=== PATIENT | male | born 1970 | race Caucasian/White ===

== ENCOUNTER 2023-03-18 09:43 | Outpatient (OUT) | payer OTHER, SELFPAY ==
[2023-03-18 10:00] LABS: Basophils Absolute Auto 0.1 10^3/uL (0.0-0.1); Basophils Percent Auto 0.9 % (0.2-2.0); Eosinophils Absolute Auto 0.1 10^3/uL (0.0-0.7); Eosinophils Percent Auto 1.2 % (0.9-7.0); Hematocrit 43.2 % (42.0-54.0); Hemoglobin 14.5 g/dL (14.0-18.0); Immature Granulocytes Abs Auto 0.02 10^3/uL (0.00-0.03); Immature Granulocytes Pct Auto 0.3 % (0.0-0.5); Lymphocytes Percent Auto 29.4 % (20.5-60.0); Mean Corpuscular HGB Conc 33.6 g/dL (29.9-35.2); Mean Corpuscular Hemoglobin 32.5 pg (25.9-34.0); Mean Corpuscular Volume 96.9 fL (80.0-94.0); Mean Platelet Volume 9.1 fL (9.5-13.5); Monocytes Absolute Auto 0.6 10^3/uL (0.3-0.8); Neutrophils Absolute Auto 4.1 10^3/uL (1.4-6.5); Neutrophils Percent Auto 60.2 % (43.0-75.0); Platelet Count 216 10^3/uL (150-450); Red Blood Count 4.46 10^6/uL (4.70-6.10); White Blood Count 6.8 10^3/uL (4.0-11.0)
[2023-03-18 13:31] LABS: Prostate Specific Antigen Scrn 0.34 ng/mL (<=4.00)
[2023-03-18 13:33] LABS: Alanine Aminotransferase 100 U/L (16-63); Alkaline Phosphatase 75 U/L (46-116); Anion Gap 13.7; Aspartate Amino Transferase 51 U/L (15-37); BUN Creatinine Ratio 18.1; Bilirubin Total 0.5 mg/dL (0.2-1.0); Calcium 9.2 mg/dL (8.5-10.1); Carbon Dioxide 25.8 mmol/L (21.0-32.0); Chloride 103 mmol/L (98-107); Chol HDL Ratio 5.6; Cholesterol 254 mg/dL (<=200); Estimated GFR (African America >60 (>=60); Estimated GFR (Non-African Ame >60 (>=60); Globulin 4.2 g/dL; Glucose 107 mg/dL (74-106); HDL Cholesterol 45 mg/dL (40-60); Potassium 4.5 mmol/L (3.5-5.1); Sodium 138 mmol/L (136-145); Total Protein 8.2 g/dL (6.4-8.2); Triglycerides 163 mg/dL (<=150); VLDL CHOLESTEROL 32.6 mg/dL
== END 2023-03-18 09:44 | disposition home or self-care (01) ==
LOC: LAB 09:46
PROVIDERS: PCP Nurse Practitioner Family; Visit Provider Nurse Practitioner Family
DX: I10 Essential (primary) hypertension (principal); Z12.5 Encounter for screening for malignant neoplasm of prostate
CPT/HCPCS: 36415; 80053; 80061; 85025; G0103

== ENCOUNTER 2023-04-21 16:16 | Outpatient (RCR) | payer OTHER, SELFPAY | END 2023-04-22 16:28 | disposition home or self-care (01) | LOC: PT 16:16 | PROVIDERS: PCP Nurse Practitioner Family; Visit Provider Nurse Practitioner Family | DX: M23.92 Unspecified internal derangement of left knee (principal) | CPT/HCPCS: 97110; 97161 ==

== ENCOUNTER 2023-10-23 06:36 | Outpatient (OUT) | payer OTHER, SELFPAY ==
--- OUTSIDE RECORDS SUMMARY | 2023-10-23 06:39 | XMS_ITS | CCD ---
Author Organization [facility] Care Team Providers Care Ball Warper Tender Name Role Phone RORY, DR MENDEZ Primary Care Unavailable VALADEZ, DR MENDEZ Admitting Unavailable VALADEZ, DR MENDEZ Attending Unavailable VALADEZ, DR MENDEZ Consulting Unavailable WEST, DR RICK Griffin Consulting Unavailable REQUEST, DR SU LISTED Attending Unavaila ble REQUEST, DR SU LISTED Consulting Unavaila ble REQUEST, DR SU LISTED Admitting Unavaila ble VALADEZ, DR MENDEZ Primary Care Unavailable VALADEZ, DR MENDEZ Primary Care Unavailable FAWWASkye, Admitting Unavailable FAWSHAIKH VICENTE Attending Unavailable ESAU, DR RICK Griffin Consulting Unavailable SAMSA, KE Consulting Unavailable HAIR, CHASE Consulting Unavailable FAWWAD, BRADFORD Consulting Unavailable 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 Unavailable ANGELA IRELAND Attending Unavailable Rohrbacher TURBINE OPERATOR-Bushra SCHREIBER Primary Care P tad KAREN JONES Attending Unavailable BUSHRA BLANCO Primary Care Unavail able 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 Primary Care Unavailable Angela Ireland Attending Unavail able Angela Ireland Admitting Unavail able Rick Shen Consulting Unavailable Angela Ireland Attending Unavail able Angela Ireland Admitting Unavail able 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 Primary Care Unavailable Rohrbacher TURBINE OPERATOR-DOUBLE BACK OPERATORBushra Primary Care Pro vider KAREN JONES Referring Unavailable BUSHRA BLANCO Primary Care Unavailab KAREN Arevalo Referring Unavailable BUSHRA BLANCO Primary Care Unavailab KAREN Arevalo Referring Unavailable ARELISRBBUSHRA PEREZ Primary Care Unavailab le Allergies Allergy Classification Reported Allergen(s) Allergy Type Date of Onset Reaction(s) Facility (1 source) No Known Medication Allergies; Translations: [No Known Medication Allergies] Propensity to adverse reactions to drug (disorder) [facility] Repository (1 source) ALLERGIES NOT ON FILE; Translations: [ALLERGIES NOT ON FILE] Propensity to adverse reactions (disorder) [facility] Medications Current Medications Medication Drug Class(es) Dates Sig (Normalized) Sig (Original) diclofenac sodium 75 mg delayed release oral tablet (1 source) Nonsteroidal Anti-inflammatory Drug take 1 tablet by mouth every twelve hours Diclofenac Sodium 75 MG 1 tablet Orally Twice a day Active losartan potassium 50 mg oral tablet (9 sources) Angiotensin 2 Receptor Moriah Start: 04-08-2023 take 1 tablet by mouth once daily losartan (Cozaar) 50 mg tablet Take 1 tablet (50 mg) by mouth once daily. 0 06/23/2023 Active Completed/Discontinued Medications Medication Drug Class(es) Dates Sig (Normalized) Sig (Original) meloxicam 15 mg oral tablet (3 sources) Nonsteroidal Anti-inflammatory Drug take 1 tablet by mouth every twenty-four hours Meloxicam 15 MG 1 tablet Orally Once a day Not-Taking/PRN regadenoson (Lexiscan) injection 0.4 mg (1 source) Start: 08-27-2023 End: 08-27-2023 regadenoson (Lexiscan) injection 0.4 mg Tc-99m tetrofosmin (Myoview) injection 10 millicurie (1 source) Start: 08-27-2023 End: 08-27-2023 Tc-99m tetrofosmin (Myoview) injection 10 millicurie Tc-99m tetrofosmin (Myoview) injection 30 millicurie (1 source) Start: 08-27-2023 End: 08-27-2023 Tc-99m tetrofosmin (Myoview) injection 30 millicurie Problems Active Problems Problem Classification Problem Date Documented Date Episodic/Chronic Conduction disorders (1 source) Intraventricular conduction defect; Translations: [Conduction disorder, unspecified] Chronic Disorders of lipid metabolism (9 sources) Hypertriglyceridemia; Translations: [Pure hyperglyceridemia] Onset: 03-23-2023 06-29-2023 Chronic Diverticulosis and diverticulitis (1 source) Diverticulosis of large intestine without perforation or abscess without bleeding; Translations: [DVRTCLOS LG INT NO PERF/ABSC W/O BL] Onset: 01-23-2021 Chronic Essential hypertension (18 sources) Essential hypertension; Translations: [Essential (primary) hypertension] Onset: 06-29-2023 Chronic Osteoarthritis (9 sources) Degenerative joint disease involving multiple joints; Translations: [Polyosteoarthritis, unspecified] Onset: 03-23-2023 06-29-2023 Chronic Other connective tissue disease (1 source) Impingement syndrome of right shoulder; Translations: [IMPINGEMENT SYNDROME RIGHT SHOULDER] Onset: 07-06-2021 Episodic Other endocrine disorders (6 sources) Hypopituitarism; Translations: [Hypopituitarism] Onset: 03-23-2023 06-29-2023 Chronic Other nervous system disorders (11 sources) Chronic pain; Translations: [Other chronic pain] Onset: 03-23-2023 06-29-2023 Chronic Other nervous system disorders (3 sources) Other chronic pain; Translations: [Other chronic pain] Onset: 06-29-2023 Chronic Other non-traumatic joint disorders (5 sources) Pain in right knee; Translations: [PAIN IN RIGHT KNEE] Onset: 07-01-2021 Episodic Other non-traumatic joint disorders (10 sources) Pain in left knee; Translations: [Pain in joint, lower leg] Onset: 06-29-2023 Episodic Other screening for suspected conditions (not mental disorders or infectious disease) (20 sources) Other specified abnormal findings of blood chemistry; Translations: [Encounter for screening for malignant neoplasm of prostate] Onset: 01-23-2021 Episodic Residual codes; unclassified (7 sources) Non-smoker; Translations: [Other specified health status] Onset: 06-29-2023 06-29-2023 Episodic Residual codes; unclassified (2 sources) Other specified health status; Translations: [Other specified health status] Onset: 06-29-2023 Episodic Unclassified (1 source) CONTACT W/AND (SUSP) EXPOS COVID-19; Translations: [CONTACT W/AND (SUSP) EXPOS COVID-19] Onset: 01-23-2021 Past or Other Problems Problem Classification Problem Date Documented Da te Episodic/Chronic Biliary tract disease (1 source) Acute cholecystitis; Translations: [ACUTE CHOLECYSTITIS] Onset: 01-23-2021 Episodic Pancreatic disorders (not diabetes) (3 sources) Acute pancreatitis without necrosis or infection, unspecified; Translations: [ACUTE PANCREATITIS WO NECRS/INF UNS] Onset: 01-18-2021 Episodic Results Test Name Value Interpretation Reference Range Facility [facility] Heart Perfusion W stress and W radionuclide Everardo 08-27-2023 Normal Lexiscan Myoview cardiac perfusion stress test. No evidence of ischemia or myocardial infarction by perfusion imaging. Normal left ventricular systolic function, ejection fraction 52%. No previous study available for comparison. Signed by: Kecia Durand 08/27/2023 5:23 PM Dictation workstation: [id number] Interpreted By: Kecia Durand and Giannuzzi Michael STUDY: MYOCARDIAL PERFUSION STRESS TEST WITH LEXISCAN Performing facility: [facility], [address], [address], [address] Provider: Karen Jones MD, FACC PCP: Dr. Juan David Blanco [facility] Supervising provider: Kevan Freedman MD, FACC INDICATION: Elevated CA score HISTORY: Gender: M; Age: 53 y/o ; Height: HT 195.6 cm cm; Weight: WT 126.554 kg kg. Abnormal EKG; High Cholesterol; HTN; Denies smoking. COMPARISON: No comparison. ACCESSION NUMBER(S): [id number] ORDERING CLINICIAN: KAREN JONES TECHNIQUE: ONE DAY protocol. Stress injection: Date:08-27-23, 35.4 mCi of Myoview IV 20 seconds after rapid injection of Lexiscan. Rest injection: Date: 08-27-23, 10.4 mCi of Myoview IV at rest. The patient had a rapid injection of 0.4 mg of Lexiscan IV over 10 seconds. Imaging was performed by gated tomographic technique. Reason for Lexiscan: hip/knee pain STRESS TEST DATA: Resting heart rate was 57 BPM. Resting blood pressure was 126/82 mmHg. Peak blood pressure was 122/78 mmHg. Peak heart rate was 81 BPM. TEST TERMINATED DUE TO: Protocol completed FINDINGS: STRESS TEST RESULTS: Resting electrocardiogram revealed normal sinus rhythm. There were no significant ischemic ECG changes or dysrhythmias. The patient did not have chest pains/symptoms during procedure. There was a normal recovery phase. IMAGING RESULTS: Image quality was suboptimal secondary to patchy tracer uptake. Rest and stress tomographic images were reviewed and revealed normal perfusion without evidence of ischemia, myocardial infarction, or left ventricular dilatation with stress. Overall left ventricular systolic function appeared to be normal without regional wall motion abnormalities. Ejection fraction was 52%. TID is 0.98 and is normal. There was evidence of diaphragmatic attenuation artifact. [facility] MMODAL Kecia Durand MD - 08/27/2023 Interpreted By: Kecia Durand and Giannuzzi Michael STUDY: MYOCARDIAL PERFUSION STRESS TEST WITH LEXISCAN Performing facility: [facility], [address] [place] [address], [address], [place] [address] [facility] Provider: Karen Jones MD, FACC PCP: Dr. Juan David Blanco [facility] Supervising provider: Kvean Freedman MD, FACC INDICATION: Elevated CA score HISTORY: Gender: M; Age: 53 y/o ; Height: HT 195.6 cm cm; Weight: WT 126.554 kg kg. Abnormal EKG; High Cholesterol; HTN; Denies smoking. COMPARISON: No comparison. ACCESSION NUMBER(S): [id number] ORDERING CLINICIAN: KAREN JONES TECHNIQUE: ONE DAY protocol. Stress injection: Date:08-27-23, 35.4 mCi of Myoview IV 20 seconds after rapid injection of Lexiscan. Rest injection: Date: 08-27-23, 10.4 mCi of Myoview IV at rest. The patient had a rapid injection of 0.4 mg of Lexiscan IV over 10 seconds. Imaging was performed by gated tomographic technique. Reason for Lexiscan: hip/knee pain STRESS TEST DATA: Resting heart rate was 57 BPM. Resting blood pressure was 126/82 mmHg. Peak blood pressure was 122/78 mmHg. Peak heart rate was 81 BPM. TEST TERMINATED DUE TO: Protocol completed FINDINGS: STRESS TEST RESULTS: Resting electrocardiogram revealed normal sinus rhythm. There were no significant ischemic ECG changes or dysrhythmias. The patient did not have chest pains/symptoms during procedure. There was a normal recovery phase. IMAGING RESULTS: Image quality was suboptimal secondary to patchy tracer uptake. Rest and stress tomographic images were reviewed and revealed normal perfusion without evidence of ischemia, myocardial infarction, or left ventricular dilatation with stress. Overall left ventricular systolic function appeared to be normal without regional wall motion abnormalities. Ejection fraction was 52%. TID is 0.98 and is normal. There was evidence of diaphragmatic attenuation artifact. IMPRESSION: Normal Lexiscan Myoview cardiac perfusion stress test. No evidence of ischemia or myocardial infarction by perfusion imaging. Normal left ventricular systolic function, ejection fraction 52%. No previous study available for comparison. Signed by: Kecia Durand 08/27/2023 5:23 PM Dictation workstation: [id number] [facility] Work Phone: Radiology Study observation (narrative) [facility] Work Phone: NM Heart Perfusion W stress and W radionuclide IVOrdered By: Kecia Durand on 08-27-2023 [facility] Work Phone: NUCLEAR STRESS TESTon 2023 NUCLEAR STRESS TEST Interpreted By: Kecia Durand and Calvin Chawla STUDY: MYOCARDIAL PERFUSION STRESS TEST WITH LEXISCAN Performing facility: [facility], [address] [place] [address], [address], [address] Provider: Karen Jones MD, FACC PCP: Dr. Juan David Blanco [facility] Supervising provider: Kevan Freedman MD, FACC INDICATION: Elevated CA score HISTORY: Gender: M; Age: 53 y/o ; Height: HT 195.6 cm cm; Weight: WT 126.554 kg kg. Abnormal EKG; High Cholesterol; HTN; Denies smoking. COMPARISON: No comparison. ACCESSION NUMBER(S): [id number] ORDERING CLINICIAN: KAREN JONES TECHNIQUE: ONE DAY protocol. Stress injection: Date:08-27-23, 35.4 mCi of Myoview IV 20 seconds after rapid injection of Lexiscan. Rest injection: Date: 08-27-23, 10.4 mCi of Myoview IV at rest. The patient had a rapid injection of 0.4 mg of Lexiscan IV over 10 seconds. Imaging was performed by gated tomographic technique. Reason for Lexiscan: hip/knee pain STRESS TEST DATA: Resting heart rate was 57 BPM. Resting blood pressure was 126/82 mmHg. Peak blood pressure was 122/78 mmHg. Peak heart rate was 81 BPM. TEST TERMINATED DUE TO: Protocol completed FINDINGS: STRESS TEST RESULTS: Resting electrocardiogram revealed normal sinus rhythm. There were no significant ischemic ECG changes or dysrhythmias. The patient did not have chest pains/symptoms during procedure. There was a normal recovery phase. IMAGING RESULTS: Image quality was suboptimal secondary to patchy tracer uptake. Rest and stress tomographic images were reviewed and revealed normal perfusion without evidence of ischemia, myocardial infarction, or left ventricular dilatation with stress. Overall left ventricular systolic function appeared to be normal without regional wall motion abnormalities. Ejection fraction was 52%. TID is 0.98 and is normal. There was evidence of diaphragmatic attenuation artifact. IMPRESSION: Normal Lexiscan Myoview cardiac perfusion stress test. No evidence of ischemia or myocardial infarction by perfusion imaging. Normal left ventricular systolic function, ejection fraction 52%. No previous study available for comparison. Signed by: Kecia Durand 08/27/2023 5:23 PM Dictation workstation: [id number] [facility] CT CARDIAC SCORING WO IV CON TRASTon 08-12-2023 CT CARDIAC SCORING WO IV CONTRAST Interpreted By: Denton Baires, ADDENDUM: Technical: The following is to serve as an over-read for an unenhanced cardiac CT, to evaluate the extra vascular structures. Contiguous axial CT sections are performed from the level of the karen to the upper abdomen without intravenous contrast. Findings: There is a 5 mm nodule in the right upper lobe (image 11). The remaining visualized portions of both lungs are clear. There is no sign of pathologic lymph node enlargement. There is no pleural or pericardial effusion. Images through the upper abdomen are unremarkable. The visualized osseous and soft tissue structures of the chest wall are intact. Impression: 5 mm nodule in the right upper lobe. Incidental Finding: A non-calcified pulmonary nodule/multiple non-calcified pulmonary nodules measuring less than 6 mm, likely benign. (-YCF-) Instructions: No further follow-up is required, however, if the patient has high risk factors for primary lung malignancy, follow-up noncontrast CT scan chest in 12 months may be obtained. (Lc Gudino et al., Guidelines for management of incidental pulmonary nodules detected on CT images: From the Fleischner Society 2017, Radiology. 2017 Jan;284 (1):228-243.) FLEISCHNER.ACR.IF.1 The remaining visualized extra vascular structures are unremarkable. Signed by: Denton Baires 08/12/2023 5:30 PM -------- ORIGINAL REPORT -------- Dictation workstation: [id number] Interpreted By: Denton Marroquin, STUDY: CT CARDIAC SCORING WO IV CONTRAST; 08/12/2023 9:43 am INDICATION: Signs/Symptoms:abnorm al testing. COMPARISON: None. ACCESSION NUMBER(S): [id number] ORDERING CLINICIAN: KAREN JONES TECHNIQUE: Using prospective ECG gating, CT scan of the coronary arteries was performed without intravenous contrast. Coronary calcium scoring was performed according to the method of Agatston. CT Dose-Length Product (DLP): 91.8 mGy*cm CT Dose Reduction Employed: Yes, prospective gating, iterative reconstruction. FINDINGS: The score and distribution of calcium in the coronary arteries is as follows: LM 0 LAD 1180 LCx 69 RCA 386 Total 1635 The visualized ascending thoracic aorta measures 3.9 cm in diameter. The heart is normal in size. No pericardial effusion is present. The main pulmonary artery, right and left pulmonary artery are normal in size. IMPRESSION: 1. Coronary artery calcium score of 1635*. 2. MAI 99th percentile for age, gender, and race in asymptomatic patients. *Coronary Artery Agatston score Score risk Very low 1-99 Mildly increased 100-299 Moderately increased >300 Moderate to severely increased >800 Charo et al. JCCT 2016 (http://dx.doi.org/10 .1016/j.jcct.2016.11. 003) MAI Percentile In general, greater than 75th percentile for age, gender, and race is considered to be a higher relative risk and higher lifetime risk condition. Greater than 75th percentile=moderate to severely increased relative risk irrespective of the score. Advise using MAI 10 year CHD risk calculator below for better discrimination of risk. MAI 10-Year CHD Risk with Coronary Artery Calcification can be calcuate using link below https://www.mai-nhlb i.org/MESACHDRisk/Mes aRiskScore/RiskScore. aspx Won gomez al. JACC 2015 (http://dx.doi.org/10 .1016/j.j acc.2015.08.035) Reading Sample Room Supervisor: Dr. Denton Marroquin, Date: 08/12/2023 4:32 pm Signed by: Denton Marroquin 08/12/2023 4:33 PM Dictation workstation: [id number] [facility] Coding Summaryon 07-08-2023 Coding Summary HTMLBase 64 ZeveencrJYr1sRr+PGhlY WQ+HH5ZLWZdP59rwHTbzS 3mS8CZYLgILsklCUCHWRo UDrRkwnGpJX0hhJXkUYJs IC8+CZ0rTVPkRxksdCDxg 3C2eWY6Y40gwx5wVMmyjY Y8ZINdOrFamidhn4hyuRb 6IDcuNmluOyBt HUKleQ77UJE0zZ68Qs03s UDmxKTus2uljSv9VyCuRQ ThXRJ8uAjyIUgkp5BcGBU uK55btBZfz5L5 DADqnGvpwWJqNjCnjVW8m B0oJLdjqyqlg5iwuuviCg d6ub94uCQcd6N6cJR4D3D wnwG7ERKgwWVy ZnizcRQWtS8ipwtzr6qxe evoDgYpXSFuQKz4JSk6IZ FiaUtvRpDhBT77FFF1GHK vpzDpG7SuNJHk yKnxJwT6g7E5It0LA8GDE zyiJ1SMYVAABJeqlTB+PC 53ol25P8MlHhjfPcl0WWS nZLR8iDS9xE9e VEIbNVakm5A0wMM0N1Acw mWtvf6mi4uxVAEhICsrZ9 4hkSAfz6Y4MXUbxGS1KTS ooAwkTyKlkW10 Oyc+RZAfeHpxe2AhMfpsm 4lxc8hkbEb3McdqEYChqr OpyVavNHL3p3KuEj7aGWJ ojIB9dHK8bD7z MhAxXdB6ZPpxB113EfQos UNbWgkmK09nL0JolTX+PH HbQzz7MGCoeVliSZ8jX2O hZGRpbmctbGVm bSklXS2jBCNksxmwYIHqf X1kAMWcN2l8EtUkJaV1DW pvA5EaYBEhnlmlId95mQ6 bRiQtIgU4BTpa Y5LnzpI8CYKegXXjPVgzG QD6T61ls8Z4LNMsUWAzRW X7wPG0aO0lwEadrzkegGL mdDsgdmVydGlj BCwqDJfxW958PXBmyFbvY kNvZGluZyBEYXRlOiAgMT IvMTMvMjAyMzwvdGQ+PHR kJRP3fTmkXHFt hWUsEQwiLk6jrBxrhOslG K7eNHVusjucKKAjuH2dHX VxwNSixKciFY2oMTCupro yu687ClIwNEK9 VUKxvYCtZ0HqaO9bAyEeI QWrROUnM2UwzJUtOHrjI9 79CLauKbG7VMZpigRbY2B sLWFsaWduOiB0 u7X1Yx0Fn7ZkljsrC3Uwc NHjTcRfWmdvXWg8U0SxEz wvdHI+WQ74MLGgAK93VGz 4GUV8jTueNWnk QKMnV5YncH6uVfJyMIElZ GRkOyc+PHRhYmxlIHdpZH RoPScxMDAlJyBzdHlsZT0 jYj7vIOXgIEEk rMshcFAjMqRjh0yrUNUoQ MykFQ8nxMgoR0DkgTB0MZ Vax9g4Lc27Z80rT2NfmFW +YJThlMF0mSQ3 gK6mRmDdFoF1EBrpL582R nSlcIPbXhzjl5zgk1cntG c6OgK5MOLoavNsfHpmUHB 0k3KrTb93Z96v IHdpZHRoPSIxNSUiIHZhb Mtrwr4wlI1gJc8+PGNvbC J3pWJ9yG3yFyFuSiG0NMy mG799UnQidNEt Mnfph0edv9vlkEs6XnKkW POawrNpqNxoEST2h4UwHr 07J8UepMplt9RkXdf9uf3 5nENmy7F2cKM1 M3UpKORscimooUUyyLcyB S5eZISpecerGTVdeW2sJA FcZ2s4IbIaHuU5HLuwS2F dftN1UMMeeVDe LVQgwQTDaX6ycqqcf2egg wrcBzGsAWBwTQy6IMa5XJ ZwcZsoLcOhHSU2QbV1YVS 0nIUmoM6kgUoi penjhE2qMoy+SZP3iUZcn HVWOJ4dIacyhHT+PHRkIH L9mGjwYIyzPUXwzM7xLVY wG2m5AqKhKhP3 EQigN2UvxgY8PASpoOHpL QHevRLOaT2iyjocc9tmro etZjCoZMQeTKu4EVw7QVH saWduOiBsZWZ0 ErX8AHM4lKLzrW2xrQfjv ksvyV5uAat+QmlydGggRG O0MDc5E8XfStm7WIQxoKw jEJ6egALyABwa Hh9wlYbxkVhvVL3zGBLgv grrn640ZcTvi5onSOPdwZ YvYSxiWCU5C99bj8D9WXW mTHIxYRA3qDV8 yU7mxAkxxeptdKVxlGqyz nPrrOnzBIwlPLkiC354DH YzkGybOgMbONd8J6DyNbw 9ALTgoKdtFJ0v vTRtVImeLp3njAizhAcbS K7vXHNpwxwaf547RcDmm7 xoNGUiwVPkTGkaWUU3L41 dv4N5HXUxFQOw LYF6yZV8xE9igAlsuqvdr GVmdDsgdmVydGljYWwtYW qaY113BCIkrTmlLdVenTx 9B6HtMhb5CUSq sDxyEC9oeUBtRXrkYy8es BprzZyeZY8rCFBmrjnrv6 01OvXcp5xtALLcjBOtTZl aNWF1U13dd4L8 BYPsMQSnTCJ2zEL1kA2yk GlnbjogbGVmdDsgdmVydG fpOKcpERqaO021HOIrlCk nPlBhdGllbnQg JThvURc1T4PsTqlcjYL+P H24GGEhYP61rPMmmIYmk6 aidUl7MbCwLOTtHZV5sHi zPOeqx7XwHVFz A14nhZXtr9W7BFFfmXfqd GQbEiIkzIV8wZ8sPIjjxn cpa6fhrixsEzvmr2vanm9 1pV41Y59qRWvx ZHRoPSIzMCUiIHZhbGlnb b2fkR0eKv2+EGXvyFQ0fU Y7mT5lWNTjDeW0GFcgS63 9InRvcCIvPjxj e3llp5fetSd4YkX4PHAyk tVnaAswKKH2m8TnMh52C5 9sIHdpZHRoPSIyMCUiIHZ asEmhrh7frX7p Ii8+RMUwcGZ0bQO5uK0iZ cYkTzJ1CYseG674HdPodO JkCjbnU30wM9SnaUT+PHR eYed7XHFxhIbm DQ0qvJBoYVvbSn2wXSJ2V sYvPgJaMAvvP3NvLMTrlj tejhdhgKO9GVGzHKLbuG6 7Lg3ntYjoIZPm wZBCvR4ammzve4wefhugF pPrIKHaKEy4FTq7GRZrwY goUuFhBBV3PfB1GZY9yWZ jpM9bxBaduvgd dI6lH8RzHAXqykoqOm21m P2wNjKzFhS9MDpvBxn+Sk TJLJpqKlUHFKJxA69EMep 7X0CzCmj7KUJt zWzdDF1wzRXdLRdmDm3bu QkwdPpeWZ8vYUBjzhceCY ZkhQ5wQBUayTUleWfdIT0 yTMApcpulg051 EgYkCAB6SADwlSJbO4Kji U9jQoNmTANsRMUaP9WogB EdCMvzM983DQinXsG9PXS myoMaV0KgPJWd qKbrGxP4y4J8Nw4qYU4fC H1yBSgeOA83TJ58aRTtt3 V3yEY4C1UpJOFgwiaabex faAD6AITjFHQg gT92nTRmECcnNf4pd8R2y 827FQKfKCQfeE62Sx1pzN rkKJZmpOGHeD0kwzoai6w vcjogIzAwMDAw PQg0OYe0DZHucLbvGzGeD TH9OcJ9FKF3lXLrjU9onD fabhmkxY0rKaa+NTMgWWV eauM0E2SnUqe9 WNLvfMthUP5ljWJfHUjxS w2pdEfnfMlzXV5wPZVqva xkTMZhmD7yIVLzmWUfjUo eCA9pTUHdztaa n200KjQxOYZ8KTZvuKWoU 9KhtR4dXfNpSNAjPQGrC3 OjyLZjJClmS409RHehNoA 2CJUfzkPyW3Uk BXZkgGvcBkE1e5Z5Hg5VL WpMOW03WU73wAQxe1X7gM P2V3JeHEVysqoxcntttQD 6QIIpHCTkjT72 pOXgTRtvNv0js9I6f311I TQqHGQjfD57Lm8ysKfkJP ZrdSTBfL3wnavob9lhyli gIzAwMDAwMDt0 YGs2ZQLdvQsfGvLpVZF2R iY0UII2fSYfoC4ikGldmg hgoA8aPda+PPN3QPS4uee zewi8J5GtFdau dHI+BF58YPRmOW60sBTkl MChl1sefKf1UmIcEYEwMY X9cFsvSAtvn7BeVANsU34 xqNXpe5F8EOBs vRvxmYVqDwEykGS8yU4tX Fcsafgna4vcubimMevje8 wega22lB50K49oERphHHT oPSIzMCUiIHZh mKigyx1xsV6nBy0+PGNvb WM2gLS0mY3lWxMuCsK1PI zgH229AkAwaAKaQbtwy8k ck8xdcZf6OuPr YODsqcWtuGmmSAS1c9XmZ g40X96fNOiyRMReSBZgMJ CmNGOfkTwycs4kzV5oUl4 +ST7sr5lvhh95 xJ17jLU+JVPfMJF3oJegO YmaHHApaB4wUFudXcE3SZ BwFlXrcL52hHAbHXojWh2 yhRdqjTcgNV6q GXUeejsjo077QeMrz2qwI GGqbPZnWMhlFCC1H02cn6 E7EMXjNXBaRXK8vSA5tF0 hbGlnbjogbGVm dDsgdmVydGljYWwtYWxpZ 936IASnjIpdQvJmqYLpG7 czcdKFNO6yVgarqOY+PHR jRZJ2zJkjMTdf GZOapV6wZDClC8z7RcGqW tI9UPoeB8YlmiA0IYOsqQ AxOECgyUDHyP1cfrylc5d vcjogIzAwMDAw PUb2WZg4GCYagLlxPyTsB GJ2XiL5UVK1xBZdmD5dpU jcijinyQ7hXmf+RklOOjw vdGQ+PHRkIHN0 uXeeMKzcKKTvdM9jTYFkF 3r8DcDrQbW1JGodC4Fdqa Q8HFUexKYeCDSyoPLUtF5 sfvtgb4uqkinb QyEgVMOcPNu5XOh3DQBbd SozCaOzBIA6HaQ5KJB7bJ ZgjQ4ipGdizdcgkZ9lPot +TVJOOjwvdGQ+ GPMuTFC5mGjnNGdhIESrk E6tIRXbW4n6XzEaYkI3NZ swW6CuzvP2BOLsmVNdKWY tmSNNbE9ysanw f2opsazlPqYaPXCjTOw2M Dz9LNAwrJegYzEmBYC5Nu B7JAW2yWVeyZ8mjJfoysm toN9mFeg+UGF5 IUH7NC78AK02N3KkWnrpk GFibGU+PHRhYmxlIHdpZH RoPScxMDAlJyBzdHlsZT0 bFr9iXGYdYQAy bGx (more content not included)... [facility] Consent Formson 07-07-2023 Consent Forms [id number]#[facility]. [facility] on [facility]-07-[facility]23 Consultation/Specia list Note [id number]. [facility] Discharge Instructions [id number][facility] Recordon 07-07-2023 MAGR Intraoperative Record MAGR Intra-Op Record Summary Primary Physician: Angela Ireland DO Finalized Date/Time: 07/07/23 14:38:47 Pt. Name: ANGELA NANCE/Sex: 1970 MALE Med Rec #: [id number] Physician: Angela Ireland DO Financial #: [id number] Pt. Type: D Room/Bed: / Admit/Disch: 07/06/23 10:40:31 - 07/06/23 15:50:00 Institution: Case Times MAGR Entry 1 Patient In Room Time 07/06/23 14:02:00 Out Room Time 07/06/23 14:50:00 Anesthesia Start Time 07/06/23 14:02:00 Stop Time 07/06/23 14:53:00 Surgery Start Time 07/06/23 14:24:00 Stop Time 07/06/23 14:39:00 Last Modified By: Ariadne Craft RN 07/06/23 14:54:36 Case Attendance MAGR Entry 1 Entry 2 Entry 3 Case Attendee Angela Ireland Bradley MD Long, Barbara RN Andrew DO Role Performed Surgeon - Primary Anesthesiologist of Stage Driver Record Time In 07/06/23 14:02:00 07/06/23 14:02:00 07/06/23 14:02:00 Time Out 07/06/23 14:33:00 07/06/23 14:50:00 07/06/23 14:50:00 Procedure Arthroscopy Knee(Left) Arthroscopy Knee(Left) Arthroscopy Knee(Left) Last Modified By: Ariadne Craft RN, Barbara RN Long, Barbara RN 07/06/23 14:51:56 07/06/23 14:51:56 07/06/23 14:51:56 Entry 4 Entry 5 Case Attendee Anika Palomino CST, Lauren M CSFA Role Performed Scrub 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 Time In 07/06/23 14:02:00 07/06/23 14:02:00 Time Out 07/06/23 14:50:00 07/06/23 14:50:00 Procedure Arthroscopy Knee(Left) Arthroscopy Knee(Left) Last Modified By: Ariadne Craft RN, Barbara RN 07/06/23 14:51:56 07/06/23 14:51:56 Surgical Procedures MAGR Pre-Care Text: A.20 Verifies operative procedure, surgical site, and laterality Im.150 Develops individualized plan of care Entry 1 Procedure Arthroscopy Knee Primary Procedure Yes Primary Surgeon Angela Ireland DO Surgeon Comment LEFT KNEE SCOPE - Start 07/06/23 14:24:00 MENISCAL TEA left knee menisectomy Stop 07/06/23 14:39:00 Anesthesia Type General Surgical Service Orthopedics Wound Class Clean Technique Details Closure Technique Primary Entire procedure No was performed via laparoscope or robotic assistance Last Modified By: Ariadne Craft RN 07/06/23 14:52:32 Post-Care Text: O.730 The patient's care is consistent with the individualized perioperative plan of care General Case Data MAGR Pre-Care Text: A.350.1 Classifies surgical wound Entry 1 Case Information OR MAGR OR 01 Case Level Level 4 Wound Class Clean Specialty Orthopedics ASA Class 2 Diagnosis Preop Diagnosis MENISCUS TEAR LEFT KNEE Postop Same As Preop Yes Postop Diagnosis MENISCUS TEAR LEFT KNEE Blunt or No Is the procedure No penetrating injury considered occured prior to Emergent/Urgent? the start of the procedure: Last Modified By: Ariadne Craft RN 07/06/23 14:27:34 Post-Care Text: O.760 Patient receives consistent and comparable care regardless of the setting Time Out MAGR Entry 1 Procedure(s) Arthroscopy Knee(Left) Time Out Checklist Verifications Patient Verified Yes Allergies Verified Yes Procedure to be Yes Presence of Yes Performed Verified Necessary with Consent Procedural Equipment, Devices, and Implants Verified Site Verification, Yes Site Marking, Site Marking Alternative, and/or Site Marking Exception in Accordance with Facility Policy Anesthesia Review Antibiotic Received Yes All Anesthesia Yes Within an Concerns Addressed Appropriate Time Interval Prior to Surgical Incision Surgeon Review Anticipated Blood Yes Loss Risk, Expected Case Duration, and Critical and Non-Routine Steps to be Performed Addressed Nurse Review Team Introductions Yes Equipment Concerns Yes Completed Addressed Fall Risk Concerns Yes Fire Risk Yes Addressed Assessment Completed and Interventions Performed Skin Assessment Yes Diagnostic and Yes Concerns Addressed Radiological Test Results Displayed are Appropriate and Labeled Skin Prep Allowed Yes Sterilization Yes to Dry Prior to Concerns Addressed Incision Venous n/a Laser Safety n/a Thromboembolism Measures Implemented Prophylaxis Ordered Latex Precautions n/a Other Concerns Yes Implemented Addressed Time Out Angela Ireland Time Out Time 07/06/23 14:23:00 Participants Cabrera Tatum DO, Bradley MD, Ariadne Craft RN, Anika Palomino CST, Luci Cabrera [facility] Last Modified By: Ariadne Craft RN 07/06/23 14:30:29 Patient Positioning MAGR Pre-Care Text: A.280 Identifies baseline musculoskeletal status Im.40 Positions the patient Im.80 Applies safety devices Entry 1 Procedure Arthroscopy Knee(Left) Body Position Supine Left Arm Position Extended on padded arm Right Arm Position Extended on padded arm board board Left Leg Position Other/see comments Right Leg Position Other/see comments Feet Uncrossed? Yes Press Points Checked Yes Additional Operative le (more content not included)... Normal [facility] Outside Recordson 07-07-2023 Outside Records [id number]#1 .[facility] Tele[facility] Stripson 3 Telemetry Strips [id number]. [facility] Anesthesia Noteon 07-06-2023 Anesthesia Note Patient: ANGELA NANCE Age: 53 years Sex: MALE : 1970 Associated Diagnoses: None Author: Baljeet Rees MD Postoperative Information Post Operative Note: Post Anesthesia Care Unit. Anesthetic utilized: General, LMA used.. . Health Status Allergies: Allergic Reactions (All) No Known Medication Allergies Physical Examination Vital Signs (last 24 hrs) Last Charted Heart Rate Monitored 75 bpm (JUL 06 15:10) Resp Rate 16 br/min (JUL 06:10) SBP H 143 mmHg (JUL 06:) DBP H 98 mmHg (JUL 06:) General: Alert and oriented, No acute distress. Respiratory: Respirations are non-labored. Cardiovascular: Normal rate, Regular rhythm. Review / Management Condition: Stable. Assessment Anesthetic outcome No anesthetic complications noted. Adequate pain relief. No Complaint of nausea and vomiting. Plan Transfer/ Discharge: Patient can be discharged from PACU when criteria met. [Electronically Signed on: 07/06/2023 15:21 EST] Baljeet Rees MD [Verified on: 07/06/2023 15:21 EST] Baljeet Rees MD [facility] Anesthesia Note Patient: ANGELA NANCE MRN: [id number] Age: 53 years Sex: MALE : 1970 Associated Diagnoses: None Author: Baljeet Rees MD Preoperative Information Anesthesia history: Patient history: No prior anesthesia problems, No problems with local anesthetics. Review of Systems Constitutional: Negative. Respiratory: No shortness of breath. Cardiovascular: No chest pain. Health Status Allergies: Allergic Reactions (All) No Known Medication Allergies Current medications: Home Medications (2) Active diclofenac sodium 75 mg oral delayed release tablet 75 mg = 1 tab(s), PO, BID losartan 50 mg oral tablet 50 mg = 1 tab(s), PO, Daily Problem list: All Problems Hypertension / SNOMED CT 4532798037 / Confirmed Left knee pain / SNOMED CT 6119182217 / Confirmed Histories Family History: No family history items have been selected or recorded. Procedure history: Appendectomy ([id number]). Social History Electronic Cigarette/Vaping Assessment Electronic Cigarette Use: Never. Alcohol Assessment Use: Current. Beer, 1-2 times per week Tobacco Assessment Never tobacco user Tobacco Use:. Substance Abuse Assessment Substance use: Never. . Social & Psychosocial Habits Alcohol 06/23/2023 Alcohol Use: Current Type: Beer Frequency: 1-2 times per week Substance Use 06/23/2023 Substance use: Never Tobacco 06/23/2023 Smoking tobacco use: Never tobacco user Electronic Cigarette/Vaping 06/23/2023 Electronic Cigarette Use: Never . Physical Examination Vital Signs (last 24 hrs) Last Charted Heart Rate Apical 68 bpm (JUL 06 10:50) Resp Rate 16 br/min (JUL 06 10:50) SBP H 143 mmHg (JUL 06 10:55) DBP H 98 mmHg (JUL 06 10:55) General: Alert and oriented, No acute distress. Airway: Mallampati classification: III (soft palate, base of uvula visible). Respiratory: Respirations are non-labored. Cardiovascular: Normal rate, Regular rhythm. Neurologic: Alert, Oriented. Review / Management Laboratory Results Plan [place] [employer]esthesiologists (ASA) physical status classification: Class II. Anesthetic Preoperative Plan Anesthesia: General. , Plan for LMA. Anesthetic plan, risks, benefits, and alternatives discussed with the patient and/or family. Patient verbalized understanding. Informed consent was given. Consent was signed by the patient. present at interview. . [Electronically Signed on: 07/06/2023 12:34 EST] Cabrera, Baljeet MD [Verified on: 07/06/2023 12:34 EST] Baljeet Rees MD [facility] Inpatient Patient Summaryon 07-06-2023 Inpatient Patient Summary [place] [id number] Patient Discharge Instructions Name: ANGELA NANCE : 1970 Patient Address: [address] [place] [address] Primary Care Provider: Name: 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 CNP After you are discharged if you find you have any questions, please, call [phone] ext [phone] to speak to a nurse. Discharge Diagnosis: Tear of medial meniscus of left knee Prescription Information: If you have been given a prescription for narcotics, seek immediate medical attention if you have any difficulty breathing or any sudden status changes such as confusion and sleepiness. If you or anyone you know is experiencing suicidal thoughts, mental health, alcohol and/or drug addiction problems; contact the [facility] 16/02 Crisis Hotline -Text 4HCEZ uw 460785. If you received any narcotics, sedation, or any other medication that causes drowsiness for the next 24 hours, unless otherwise directed: ? Do not drive a car. ? Do not operate machinery such as power tools, lawn mowers, drills, sewing machines, or stoves ? Avoid alcoholic beverages and drugs for allergies, nerves, or sleep ? Do not make important personal or business decisions or sign any legal documents [facility] would like to thank you for allowing us to assist you with your healthcare needs. The following includes patient education materials and information regarding your injury/illness. GOYOANGELA Rick has been given the following list of follow-up instructions, prescriptions, and patient education materials: Follow-up Instructions With: Address: When: SHELBY NATHAN [address] [place] [address], [address] [place] [address] Business (1) 07/15/2023 9:15 AM Medications During the course of your visit, your medication list was updated with the most current information. The details of those changes are reflected below: Medications to Continue That Have Not Changed Other Medications diclofenac (diclofenac sodium 75 mg oral delayed release tablet) 1 tab(s) Oral (given by mouth) 2 times a day. losartan (losartan 50 mg oral tablet) 1 tab(s) Oral (given by mouth) every day. It is important to always keep an active list of medications available so that you can share with other providers and manage your medications appropriately. As an additional courtesy, we are also providing you with your final active medications list that you can keep with you. diclofenac (diclofenac sodium 75 mg oral delayed release tablet) 1 tab(s) Oral (given by mouth) 2 times a day. losartan (losartan 50 mg oral tablet) 1 tab(s) Oral (given by mouth) every day. Take only the medications listed above. Contact your doctor prior to taking any medications not on this list. Diet & Activity Patient Activity Level: Patient Diet: Patient Activity Restrictions: Comment: Patient education materials, if any, will display below DR. IRELAND'S POST OPERATIVE KNEE ARTHROSCOPY INSTRUCTIONS: SURGEON'S WRITTEN INSTRUCTIONS: 1. If you have been given a cryo cuff after surgery you should use it about 20 min/hour for the first 24 hours. After that it is optional. TIP: Many patients prefer to use it a little longer because it helps to reduce the pain. 2. You should take it easy for the first 3 days following surgery. You should be a ?couch potato? and get up to eat and go to the bathroom. After the first 3 days, you may gradually increase your activities as tolerated. 3. Change your dressing in 1 day. If the wounds are clean and dry you can cover them with a band-aid. 4. You may shower in 1 day. DO NOT submerge the wound under water as in a bathtub, swimming pool, or hot tub. 5. You may bear weight as tolerated. Using crutches or assisted devices are not required. 6. You should elevate your extremity. 7. If you have any questions or concerns, please call the office at [phone]. Viruses or Bacteria What?s got you sick? Antibiotics only treat bacterial infections. Viral illnesses cannot be treated with antibiotics. When an antibiotic is not prescribed, ask your healthcare professional for tips on how to relieve symptoms and feel better. Usual Cause Illness Viruses Bacteria Antibiotic Needed Cold/Runny Nose NO Bronchitis/Chest Cold (in otherwise healthy children and adults) NO Whooping Cough Yes Flu NO Strep Throat Yes Sore Throat (except strep) NO Fluid in the middle ear (otitis media with effusion) NO Urinary Tract Infection Yes Antibiotics Aren?t Always the Answer www.cdc.gov/getsmart GET SMART Know When Antibiotics Work U.S. Department of Health and Human Services Centers for Disease Control and Prevention March 2014 [facility] MAGR PACU Recordon MAGR PACU Record MAGR PACU Record Summary Primary Physician: Angela Ireland DO Finalized Date/Time: 07/06/23 15:09:51 Pt. Name: ANGELA NANCE/Sex: 1970 MALE Med Rec #: [id number] Physician: Angela Ireland DO Financial #: [id number] Pt. Type: D Room/Bed: / Admit/Disch: 07/06/23 10:40:31 - Institution: PACU Case Times MAGR Entry 1 In PACU I 07/06/23 14:49:00 Discharge from PACU 07/06/23 15:12:00 I Last Modified By: Selene Bryson RN 07/06/23 15:09:47 Finalized By: Selene Bryson RN Document Signatures Signed By: Selene Bryson RN 07/06/23 15:09 [facility] MAGR Postoperative Recordon 07-06-2023 MAGR Postoperative Record MAGR Phase II Record Summary Primary Physician: Angela Ireland DO Finalized Date/Time: 07/06/23 15:47:35 Pt. Name: ANGELA NANCE/Sex: 1970 MALE Med Rec #: [id number] Physician: Angela Ireland DO Financial #: [id number] Pt. Type: D Room/Bed: / Admit/Disch: 07/06/23 10:40:31 - 07/06/23 15:50:00 Institution: Phase II Case Times MAGR Pre-Care Text: Patient is free from s/s of injury. Patient remains free from compromised physical state related to surgery or anesthesia. Patient comfort maintained. Patient/family verbalize understanding of discharge instructions. Entry 1 In PACU II 07/06/23 15:14:00 Discharge from PACU 07/06/23 15:50:00 II Last Modified By: Danika Silva RN 07/06/23 15:47:33 Post-Care Text: The patient remains free from s/s of injury. Patient's vital signs stable, circulation maintained, return to preop mental and physical status, opsite/dressing intact, minimal or absent nausea and vomiting, tolerates po intake. Patient verbalizes adequate pain control. Patient/family express understanding of discharge instructions. Finalized By: Danika Silva RN Document Signatures Signed By: Danika Silva RN 07/06/23 15:47 [facility] Preoperative Recordon 1 09-06-2022 [facility] Preoperative Record MAGR Pre-Op Record Summary Primary Physician: Angela Ireladn DO Finalized Date/Time: 07/06/23 14:26:15 Pt. Name: ANGELA NANCE /Sex: 1970 MALE Med Rec #: [id number] Physician: Angela Ireland DO Financial #: [id number] Pt. Type: D Room/Bed: / Admit/Disch: 07/06/23 10:40:31 - Institution: Pre-Op Case Times [facility] Pre-Care Text: Patient will be optimally prepared for surgery. Patient is free from s/s of injury. Provide information to patient/family related to plan of care. Verify patient allergies. Confirm identity and verify consent before the operative or invasive procedure. Entry 1 Patient Arrival Time 07/06/23 10:52:00 Preop Departure 07/06/23 14:01:00 Last Modified By: Ariadne Craft RN 07/06/23 14:26:13 Post-Care Text: Patient is prepared mentally and physically and is ready for surgery. The patient remains free from s/s of injury. Patient/family express understanding of plan of care and participate in decisions affecting his or her perioperrative plan of care. Allergies documented appropriately. Patient identifiers and consent correct. General Comments: Pt arrives per amb. Pt denies any CP, SOB, Hx of S/S of flu, or sleep apnea. Disch instrtuctions reviewed with pt incl anesth restrictions-verbaliz ed understanding. Finalized By: Ariadne Craft RN Document Signatures Signed By: Ariadne Craft RN 07/06/23 14:26 Normal [facility] Operative Report - Surgeon/P luzmaria 07-06-2023 Operative Report - Surgeon/Physician Preoperative diagnosis: Internal derangement left knee with suspected meniscus tear Postoperative diagnosis: Medial meniscus left knee. Chondromalacia patella. Arthritis medial compartment Procedure: Arthroscopic partial medial meniscectomy left knee Surgeon: Juan David Ireland D.O. Anesthesia: General Indications for surgery: Ongoing pain and discomfort of the left knee Estimated blood loss: Scant Complications: There were no complications Findings: Tear posterior horn medial meniscus. Loss of articular cartilage in the medial compartment with areas of exposed bone. Loose cartilaginous chips within the knee joint numerous small joint mice. Chondromalacia patella. Procedure summary: After administration of anesthesia the knee was examined there was no instability was placed in leg denson and prepped and draped in usual fashion. Timeout was taken. An anterior lateral portal was established. Upon entering the patellofemoral joint there was chondromalacia at the patella was tracking midline. The scope was positioned in the medial compartment there was an obvious tear of the medial meniscus under direct visualization an anterior medial portal was established. The meniscus was probed and interrogated the posterior horn was completely torn. A portion of it was missing. There was also raw bone on the medial femoral condyle with a large broad area of articular loss. Utilizing a shaver a partial meniscectomy was performed trimming back the meniscus to a stable base. The majority of the posterior horn was removed and the small portion of the body of the meniscus. In the notch the cruciate ligaments were intact In the lateral compartment the articular cartilage was intact the lateral meniscus was normal. Each compartment was revisited the joint was irrigated and evacuated and the portals were closed with nylon suture. Sterile dressings were applied. [Electronically Signed on: 07/06/2023 15:07 EST] Angela Ireland DO [Verified on: 07/06/2023 15:07 EST] Angela Ireland DO [facility] Patient Handouton 07-06-[address] IRELAND'S POS T OPERATIVE KNEE ARTHROSCOPY INSTRUCTIONS: SURGEON'S WRITTEN INSTRUCTIONS: 1. If you have been given a cryo cuff after surgery you should use it about 20 min/hour for the first 24 hours. After that it is optional. TIP: Many patients prefer to use it a little longer because it helps to reduce the pain. 2. You should take it easy for the first 3 days following surgery. You should be a ?couch potato? and get up to eat and go to the bathroom. After the first 3 days, you may gradually increase your activities as tolerated. 3. Change your dressing in 1 day. If the wounds are clean and dry you can cover them with a band-aid. 4. You may shower in 1 day. DO NOT submerge the wound under water as in a bathtub, swimming pool, or hot tub. 5. You may bear weight as tolerated. Using crutches or assisted devices are not required. 6. You should elevate your extremity. 7. If you have any questions or concerns, please call the office at [phone]. [facility] Progress Note - Nurseon 12-0 Progress Note - Nurse Spoke with pt and informed him to be here at 1045 and NPO after MN, he verbalizes understanding. [Electronically Signed on: 07/03/2023 13:35 EST] Zayra Rodriguez RN [Verified on: 07/03/2023 13:35 EST] Tk Rodriguezfredrick RN Normal [facility] ECG 12 Leadon 06-29-2023 Normal sinus rhythm at 87 bpm MA interval 158 ms QRS duration 110 ms QTc 433 ms left axis deviation [facility] Work Phone: Coding Summaryon 06-25-2023 Coding Summary HTMLBase 64 ZqwxoyfdBTi8dYe+PGhlY WQ+IZ3SVMUlO13nsJWejQ 1yU0MPPPbAAvmrPSITFGv FHbVwweDkWS5toDCcXQFv IC8+JU3sAXTlApbxzBPfn 7A6sPX8A50gat7aXDckrT P9FHHbFqJkeqbbn0eorOm 6IDcuNmluOyBt PBMufF96NAP2jW82Sy58i CStdTJln7beaBq3IoBpOA GzECB3bAnoPQqox3XzNBA uC16spCMhn6S1 NNCbfBpivYQgUjGjhVJ6w A3aYJsiesitn7refaahUf d1lj13lEOlq4L8dQX3E8N pdmS1EJPxaYSf ZuogtWGXjY8ovlftu4pql dnvKtOwYSTtIIl7JWg0CN EnsNkiSeGsQB29QEF0MAM kclPyI5RoXKMn iGvvEkG3m7A4Jg0CN0CGQ ydgV3RNHZTWWMqncYO+PC 49tn96V7NlXarzUaf9KVP oTFZ0yKV4zP9p WRLhVEezd9S1jRT7N6Dnd sFsev8qh3szLIXcBVrzK8 2buCHnx8N4EYPnzFS1WQG keYwkBiTqnF80 Oyc+FXMogKsez8JeFddon 3cig4qrwCj0TumhHZXsiy EygPdwXNP8k7EhRr8aOOQ yhEQ4sJK4pE4u MnWfMqI2GEhdQ851KxJyz KPuVsoyB18yI6QpfRH+PH UzJml3JFMkdJukWR8yJ5Z hZGRpbmctbGVm pSypMI2yUPWwbsdcFGDsb D2xBESaA5z7PlUmDxA4ZP ymD8PrDEVxdavoVe74cI7 iZnVmJaO2TQqv W9KahwT4FOEuzSLpRExrO JE0Y95cv2F0LMPnVIOjIV S2dJE3rI1nzAdqzfkpeCF mdDsgdmVydGlj JCkqAUulP624XNAibTroP kNvZGluZyBEYXRlOiAgMT EvMzAvMjAyMzwvdGQ+PHR iINM0hAkoZYDj mDTiZEszYj8bgUzexApnD C0cDKWisbblVUCndL6gME OnxAEpsWmoRQ0eGRBxquz cz146GiCjOUP3 LSBeiGTxF6HhlQ3sLwSgO MMePQNgS7PrvOStEPuvI1 44UMucAdT4FLMtmkNaX0I sLWFsaWduOiB0 v2Z3Iv5Ow4VayxgjC8Pjb EOjDgJwLfgjWUo0I4OrPi wvdHI+XM51NZNrZW58JIt 3BZM5jLioDUio JIPfR9UwjE0iFrSwARJbW GRkOyc+PHRhYmxlIHdpZH RoPScxMDAlJyBzdHlsZT0 gXw0bZLAzAZUz lMofvSTyVkJmf8mzCZGkT KqzMS2qmYcvS3JhqXV0FM Qld9z0Lh24C27zR5FldJH +REPlsTR7qAJ3 gT4dYaWnUqC8ICgsL981E dLbzPStPriyw6fmo7ccmW v3KzC3CCRzznBbwCzkSKG 8u9ZuFf32X76q IHdpZHRoPSIxNSUiIHZhb Rfawv7atV5lPo0+PGNvbC D4aQR3vF2gOkWaRyG7IZq aC046DxQtaKZa Qjftv8txk7hpqYi7FfMsZ GWgvtPpxWclQPF2l4IcPf 83U7XafNdqv3UoYao0et8 7kJLre9B6wUC9 S7RiZYJhstoglXZbhOrcO G6lSKYzjabfFBUlhK9vYA SqL1m6YxYeCoL8PEywD9K oqgM8JZAcyZYp VANmoGZWmY1jviqsa1wtr irkKxAlMJFgWMw3EKd2RZ GxkTtiPoLtPXU6SuT9SOC 6fWTjtZ8cnTya gcbkqZ8pFvp+SEM0fANer JBXFU1pCigbrUS+PHRkIH Y6bGpsBIqyIHYwpE2gKZO bM9c0GyRxKqG2 NFryY7UsnnB4VFBibLOmO KFmgUZHkY8etjnub7ljcj hgMyBsZEMpBEd3WFr7PWD saWduOiBsZWZ0 TmD5KXG5yJNgxK7unCkpk tbsaH9hAcx+QmlydGggRG Z7HJp1V5XqEtd6KNHbcRr oYT2wyLIfEQfp Zp1yoLqdeRdqOD1jTUOaj vkne873YyHxa3xgHZTsrB UkZFhvCGF2P95cl9Q2WND jQEErNZS0eDB8 jI0mnExkurfhsPKcmFoya oInqNevVUgrAAzfO364WL ReeQvqZrYsZZm5M6VkIzk 0RPGwdKglLJ7w eILhTFpfWe2mdLronZfzQ W6pYKUlttrxp441CiBqw6 tfWNQubYEnOGjgELP3E50 ja7T4UVYqQDOg ANE3bBR0vC4wqYoxokwmp GVmdDsgdmVydGljYWwtYW rkI179JVCbzEquCzUrlFd 1E5MfFfr6BNHo dImgFB4cpYZzQDxvBx7dw JdyrXzvAK7xYHOnuhkjn8 05NnUqp7hdUCSebJSjMPr qKMP2D31gt4A3 RWUkTACzVSI4uZY5zP5el GlnbjogbGVmdDsgdmVydG tkMWrmGIewX082JMVoaPl nPlBhdGllbnQg WHzpLNu3B5NrTiswlWI+P Z38KYAbAK75iXDnoQSnu3 fxkLm8ZzPdHCKwACO6dPp lNWrfl2VmNUPr X78asCQfg2C4QISimLftp SPpSyKodMN1rR7eDTnzho jte8rummayPryhy9modm3 6lX90Q74cNAry ZHRoPSIzMCUiIHZhbGlnb z1kiN0qKu4+LHWsbZK2mK V7cC9wTHFlKyN4QCdhD74 9InRvcCIvPjxj g2wvq1swzIw4TyF3DNThz qBlfCbjDJG7j3KfWe01S8 9sIHdpZHRoPSIyMCUiIHZ ldIqljh4czF5j Ii8+HCQepIU3dGC8jI5kM pOzEoJ8QSiuI108EbCmwP TpXquvG66cB7EveNW+PHR xSle3HNWkiMzw UF8ixBVsDOndQa3oLTH4U lUgDbOoUUqhO4IpOXHbxj wtfhgbjUI9ZGLuIDTouP6 7Su1cnYqlGGWf aSPRpL7jmxqsg8qpoejkZ bBoYWVwNFo4TXs8KBKfnT wnVnRgWIE2RxE5ZWG8xFC tvI7rkLwjpnmq nJ5zU7JpTJMuqladKb60b N3vSmHpUjM4PPcyRgj+Sk HWQTtvOyFGBYRgQ61XBuf 0S3WgQpd3SBNc rDliSM6ayCUcKOhaQp2qz EdlpTfoXI0tRCSnqwjcDO CgwO0qTOBwqGJxlHyaVG9 fUZTeswogi749 OoGvOIG8GKJspUKfY3Wre D0cRtGuGRJsQVBoD6KspD QeZCvqM855FCrkVjV9OFO cdvYzO4ZeVKXn hZuiBlR7z8X9Nq7uZZ7eI T4eZDbpAO21PV35gYNwi7 U6hQO8L4XxOQElhikojqb xzCU7NTZxNTOf hG71kEFqHOxzFn2kt7A5q 456DSKtNOWocJ11Nf0lxQ fhUKKzhITRuI9hxjbgz8z vcjogIzAwMDAw BHi0XHl6BUScqCvvSdLrZ NW1YsA1DLN4qFVbtK3iqZ xlirwjiK6eTel+NTMgWWV guwM1S2HeNmw1 HXAhmCsaNS2woTRfBBzxQ y3blLmcwFypPW4iNULbxi hrYYIehR9lDTSvtWIwuUo iFD8dQBRxvlqr o214BlXnNVA7HUQnhAWcQ 5CmgF4oZiPsIQGnIHZxP8 EbdRDbBKlzR223KJqgEbY 5LQVgogNzS3Iy PRFzgJhaLaT4h2M1Aw0HG AkRWE53HW00vOBds3V3oU S9G2KbQITrueydimfbmAH 5WXCiBNZlxC31 uCCbIPexYj7sy2C5h321A APsMVSgaU83Qs4khLclCI GdhRYObA7jruzzz0nrfnf gIzAwMDAwMDt0 DMt1JEFbiNtaWgCpBCP3W bQ0FTT2lFCfmF1ljYbtvv ubrJ4hZyj+S6A5Z7UrDzj vdHI+OJ80CJSz SN68dUCrzQIea8huiTt6J qOkERJyQSB1qGewRLoqz0 XoAIBcV39qgUYdt2B3FFF vbGxhcHNlOyBl wAC8tZ0iEGxghfykn9fmt fznDtvdf0gifb35oE64T2 9sIHdpZHRoPSIzMCUiIHZ epJirdu7lxQ3u Ii8+IBSywOC4rVU1rG8zM lDjGfD9KXjgO984FmCsoR IxBryke3vgm0tgvHs1VeX wJSIgdmFsaWdu UDU5f3VxFx09N02qDLyyD HRoPSIyMCUiIHZhbGlnbj 1uaL8nKi9+AA3jw1budp3 7rN25wEH+PHRk PXI4cNwcIDyvIVQcnL8zX DwgLiO6MGUkGqKubC35nY FwSSunEh7ukWkhgXmvUO0 mMDEemainj753 NlYbs0iwJSMnqQLdGBfmX UB9K78hn4Q1KTAfQZZlXA S6rWU5rC2keMshgqwelBU mdDsgdmVydGlj YQksFVqhA972OASbbJmwM wBkrVIhS6cudaPVTT6cNn wvdGQ+JZXuMVM7wHzkEDs nANBczY6iPDXb M0x2FbXyFiY2BJiyR6Cpv tE6BSKupSQbXFBkkGPRcY 8catoaz2goigymEwMwUPE kOFe2ZWf2MHQn fAskKjSoBTB5AtF1YBM6v YEsjV5jeHwmtpjctC2yLt c+RklOOjwvdGQ+PHRkIHN 0eWxlPSdwYWRk oU1eUAZbY0g6OlAnPcF7E SlmK6XbodK6TZIptKJoER UltWJUbK9xnatxe1bskmn gIzAwMDAwMDt0 TYs6CSRyaQjlPkGqLIX5D uH0YPO7yYBxnL4ljTsmit ptkE1qGkh+TVJOOjwvdGQ +YUEpGON0sHuy CWieABBbsL3gERMiB3a9D uOqVcO3FHmdC0AssyR0FI YspJOvAEUxpKNLuF4qnvb mz5jzinuvZcMg DZSkWOc1JVo5NAQezUgeQ dVxZWQ5TwV5DOL1jWLhpM 8rfGebcewowP7gPvs+UGF 6BDF4RH32DB03 Q2NoZvfrgDQbzUP+PHRhY mxlIHdpZHRoPScxMDAlJy OyzAraMK4qPj3sQUBmXRN vbGxhcHNlOiBj b2x (more content not included)... Normal [facility] .Auto Diff 06-23-2023 Auto Alfalfa % 8 % Normal 08-07 [facility] Comment on above: Performed By: #### 1 [id number] ####[facility] (DEFAULT)[address] [place] [address] Baso Abs# 0.1 x10 Normal 0.0-0.2 [facility] Comment on above: Performed By: #### 1 [id number] ####[facility] (DEFAULT)[address] [place] [address] Basophils/100 WBC (Bld) 0.8 % Normal 0.2-2.0 [facility] Comment on above: Performed By: #### 1 [id number] ####[facility] (DEFAULT)[address] [place] [address] Eos Abs# 0.1 x10 Normal 0.0-0.4 [facility] Comment on above: Performed By: #### 1 [id number], [id number], [id number] ####[facility] (DEFAULT)[address] [place] [address] Eosinophils/100 WBC (Bld) 0.7 % Low 0.9-4.0 [facility] Comment on above: Performed By: #### 1 [id number], [id number], [id number] ####[facility] (DEFAULT)[address] [place] [address] Lymph Abs# 2.3 x10 Normal 1.3-2.9 [facility] Comment on above: Performed By: #### 1 [id number], [id number], [id number] ####[facility] (DEFAULT)[address] [place] [address] Lymphocytes/100 WBC (Bld) 28 % Normal 14-48 [facility] Comment on above: Performed By: #### 1 [id number], [id number], [id number] ####[facility] (DEFAULT)[address] [place] [address] 15641 Alfalfa Abs# 0.7 x10 Normal 0.0-0.8 [facility] Comment on above: Performed By: #### 1 [id number], [id number], [id number] ####[facility] (DEFAULT)[address] [place] [address]24 Neut Abs# 5.1 x10 Normal 1.5-9.2 [facility] Comment on above: Performed By: #### 1 [id number], [id number], [id number] ####[facility] (DEFAULT)[address] [place] [address]2754 Neutrophils/100 WBC (Bld) 62 % Normal 44-88 [facility] Comment on above: Performed By: #### 1 [id number], [id number], [id number] ####[facility] (DEFAULT)[address] [place] [id number] Standardon 06-23-2023 eGFR Non AA >60 Invalid Interpretation Code [facility] Comment on above: Performed By: #### 1 [id number], [id number], [id number] ####[facility] (DEFAULT)[address] [place] [address] 31149 eGFR AA >60 Invalid Interpretation Code [facility] Comment on above: Performed By: #### 1 [id number], [id number], [id number] ####[facility] (DEFAULT)[address] [place] [address]15 Anion gap [Moles/Vol] 11.9 mmol/L Normal 5.0-19.0 [facility] Comment on above: Performed By: #### 1 [id number], 3001506, [id number] ####[facility] (DEFAULT)[address] [place] [address] 13467 Calcium [Mass/Vol] 8.7 mg/dL Low 8.9-10.3 [facility] Comment on above: Performed By: #### 1 [id number], [id number], [id number] ####[facility] (DEFAULT)[address] [place] [address] 33367 Chloride [Moles/Vol] 101 mmol/L Normal 101-111 [facility] Comment on above: Performed By: #### 1 [id number], [id number], [id number] ####[facility] (DEFAULT)[address] [place] [address]6847 CO2 [Moles/Vol] 26 mmol/L Normal 21-32 [facility] Comment on above: Performed By: #### 1 [id number], 4532304, [id number] ####[facility] (DEFAULT)[address] [place] [address] 26300 Creatinine [Mass/Vol] 0.89 mg/dL Low 0.90-1.30 [facility] Comment on above: Performed By: #### 1 [id number], 2103498, [id number] ####[facility] (DEFAULT)[address] [place] [address] 79125 Glucose [Mass/Vol] 98.0 mg/dL Normal 74.0-118.0 [facility] Comment on above: Performed By: #### 1 [id number], 6728238, [id number] ####[facility] (DEFAULT)[address] [place] [address] 11880 Osmolality 270 mOsm/L Invalid Interpretation Code [facility] Comment on above: Performed By: #### 1 [id number], 6297305, [id number] ####[facility] (DEFAULT)[address] [place] [address] 72156 Potassium [Moles/Vol] 3.9 mmol/L Normal 3.6-5.1 [facility] Comment on above: Performed By: #### 1 [id number], 2615856, [id number] ####[facility] (DEFAULT)[address] [place] [address] Sodium [Moles/Vol] 135.0 mmol/L Low 136.0-144.0 [facility] Comment on above: Performed By: #### 1 [id number], 4440268, [id number] ####[facility] (DEFAULT)[address] [place] [address] Urea nitrogen [Mass/Vol] 14 mg/dL Normal 8-26 [facility] Comment on above: Performed By: #### 1 [id number], 1976991, [id number] ####[facility] (DEFAULT)[address] [place] [address] Urea nitrogen/Creatinine [Mass ratio] 15.7 mg/mg Normal 4.6-16.2 [facility] Comment on above: Performed By: #### 1 [id number], 4765962, [id number] ####[facility] (DEFAULT)[address] [place] [address] CBC w/ Auto Diffon 3 Erythrocyte distribution width (RBC) [Ratio] 13.4 % Normal 11.5-15.0 [facility] Comment on above: Performed By: #### 1 5046890, 8409525, [id number] ####[facility] (DEFAULT)[address] [place] [address] Hematocrit (Bld) [Volume fraction] 43.5 % Normal 34.8-51.9 [facility] Comment on above: Performed By: #### 1 4882626, 4406635, [id number] ####[facility] (DEFAULT)[address] [place] [address] Hemoglobin (Bld) [Mass/Vol] 14.8 g/dL Normal 11.8-17.7 [facility] Comment on above: Performed By: #### 1 [id number], 7893900, [id number] ####[facility] (DEFAULT)[address] [place] [address] Man Diff? Auto Invalid Interpretation Code [facility] Comment on above: Performed By: #### 1 [id number], 6504353, [id number] ####[facility] (DEFAULT)[address] [place] [address] 10391 MCH (RBC) [Entitic mass] 33 pg Normal 24-34 [facility] Comment on above: Performed By: #### 1 [id number], 9348396, [id number] ####[facility] (DEFAULT)[address] [place] [address] MCHC (RBC) [Mass/Vol] 34 g/dL Normal 26-37 [facility] Comment on above: Performed By: #### 1 [id number], 5195866, [id number] ####[facility] (DEFAULT)[address] [place] [address] MCV (RBC) [Entitic vol] 96 fL Normal 81-100 [facility] Comment on above: Performed By: #### 1 [id number], 9677777, [id number] ####[facility] (DEFAULT)[address] [place] [address] Platelet 228 x10 Normal 138-427 [facility] Comment on above: Performed By: #### 1 9664706, 3634397, [id number] ####[facility] (DEFAULT)[address] [place] [address] Platelet mean volume (Bld) [Entitic vol] 7.9 fL Normal 6.3-10.2 [facility] Comment on above: Performed By: #### 1 2608447, 7582972, [id number] ####[facility] (DEFAULT)[address] [place] [address] RBC 4.52 x10 Normal 3.70-5.30 [facility] Comment on above: Performed By: #### 1 [id number], 7456931, [id number] ####[facility] (DEFAULT)[address] [place] [address] WBC 8.2 x10 Normal 3.5-10.5 [facility] Comment on above: Performed By: #### 1 7230735, 6112602, [id number] ####[facility] (DEFAULT)[address] [place] [address] PSA SCREEN (MEDICARE)on TPSA 0.217 ng/mL Normal <4.000 [facility] Comment on above: Result Comment: PSA Test Method: ECLIA/Paramjit e 601 Performed By: #### P #### [facility] [address] [place], [place] [id number] CBC AUTO DIFFon 01-19-2021 BASO # 0.0 103/ul Normal 0.0-0.1 [facility] Comment on above: Performed By: #### C BC #### [facility] [address] [place] [address] [place] Basophils/100 WBC (Bld) 0.3 % Normal 0.2-2.0 [facility] Comment on above: Performed By: #### C BC #### [facility] [address] [place], [place] [id number] [place] EO # 0.1 103/ul Normal 0.0-0.7 [facility] Comment on above: Performed By: #### C BC #### [facility] [address] [place], [place] [id number] [place] Eosinophils/100 WBC (Bld) 0.9 % Normal 0.9-7.0 [facility] Comment on above: Performed By: #### C BC #### [facility] [address] [place], [place] [id number] [place] Erythrocyte distribution width (RBC) [Ratio] 13.2 % Normal 11.0-15.0 [facility] Comment on above: Performed By: #### C BC #### [facility] [address] [place] [address] [place] Hematocrit (Bld) [Volume fraction] 40.5 % Critically low 42.0-54.0 [facility] Comment on above: Performed By: #### C BC #### [facility] [address] [place] [address] 66058 [place] Hemoglobin (Bld) [Mass/Vol] 13.5 g/dL Critically low 14.0-18.0 [facility] Comment on above: Performed By: #### C BC #### [facility] [address] [id number] [place] IG # 0.05 10e3/ul Critically high 0.00-0.03 [facility] Comment on above: Performed By: #### C BC #### [facility] [address] [id number] [place] IG % 0.5 % Normal 0.0-0.5 [facility] Comment on above: Performed By: #### C BC #### [facility] [address] [id number] [place] LYMPH # 2.0 103/ul Normal 1.2-3.8 [facility] Comment on above: Performed By: #### C BC #### [facility] [address] [place] [address] [place] Lymphocytes/100 WBC (Bld) 19.6 % Critically low 20.5-60.0 [facility] Comment on above: Performed By: #### C BC #### [facility] [address] [place], [place] [id number] [place] MANUAL DIFF REQ NO Normal [facility] Comment on above: Performed By: #### C BC #### [facility] [address] [place], [place] [id number] [place] MCH (RBC) [Entitic mass] 31.9 pg Normal 25.9-34.0 [facility] Comment on above: Performed By: #### C BC #### [facility] [address] [place], [place] [id number] [place] MCHC (RBC) [Mass/Vol] 33.3 g/dL Normal 29.9-35.2 [facility] Comment on above: Performed By: #### C BC #### [facility] [address] [place], [place] [id number] [place] MCV (RBC) [Entitic vol] 95.7 fL Critically high 80.0-94.0 [facility] Comment on above: Performed By: #### C BC #### [facility] [address] [place], [place] [address] [place] MONO # 1.0 103/ul Critically high 0.3-0.8 [facility] Comment on above: Performed By: #### C BC #### [facility] [address] [place], [place] [address] [place] Monocytes/100 WBC (Bld) 10.1 % Normal 1.7-12.0 [facility] Comment on above: Performed By: #### C BC #### [facility] [address] [id number] [place] NEUT # 7.0 103/ul Critically high 1.4-6.5 [facility] Comment on above: Performed By: #### C BC #### [facility] [address] [place], [place] [id number] [place] Neutrophils/100 WBC (Bld) 68.6 % Normal 43.0-75.0 [facility] Comment on above: Performed By: #### C BC #### [facility] [address] [place], [place] [id number] [place] Platelet mean volume (Bld) [Entitic vol] 9.5 fL Normal 9.5-13.5 [facility] Comment on above: Performed By: #### C BC #### [facility] [address] [place], [place] [id number] [place] PLT 163 103/ul Normal 150-450 [facility] Comment on above: Performed By: #### C BC #### [facility] [address] [id number] [place] RBC 4.23 106/ul Critically low 4.70-6.10 [facility] Comment on above: Performed By: #### C BC #### [facility] [address] [id number] [place] WBC 10.1 103/ul Normal 4.0-11.0 [facility] Comment on above: Performed By: #### C BC #### [facility] [address] [place], [place] [id number] [place] LIPASEon 06-26-2021 Lipase [Catalytic activity/Vol] 548.0 U/L Critically high 23.0-300.0 [facility] Comment on above: Performed By: #### D DIM #### [facility] [address] [place] [address] [place] PROF 14(COMP METB)on 021 Albumin [Mass/Vol] 3.2 g/dL Critically low 3.5-5.0 [facility] Comment on above: Performed By: #### C SCARLET, LIPA #### [facility] [address] [place] [address] [place] Albumin/Globulin [Mass ratio] 1.0 {ratio} Normal [facility] Comment on above: Performed By: #### C SCARLET, LIPA #### [facility] [address] [place] [address] [place] ALP [Catalytic activity/Vol] 54 U/L Normal 38-126 [facility] Comment on above: Performed By: #### C SCARLET, LIPA #### [facility] [address] [place] [address] [place] ALT [Catalytic activity/Vol] 95 U/L Critically high 21-72 [facility] Comment on above: Performed By: #### C MP, LIPA #### [facility] [address] [place] [address] [place] Anion gap [Moles/Vol] 13.0 mmol/L Normal [facility] Comment on above: Performed By: #### C MP, LIPA #### [facility] [address] [place], [place] [id number] [place] AST [Catalytic activity/Vol] 47 U/L Normal 17-59 [facility] Comment on above: Performed By: #### C MP, LIPA #### [facility] [address] [place], [place] [id number] [place] Bilirubin [Mass/Vol] 1.2 mg/dL Normal 0.2-1.3 [facility] Comment on above: Performed By: #### C MP, LIPA #### [facility] [address] [place] [address] [place] Calcium [Mass/Vol] 8.3 mg/dL Critically low 8.4-10.2 [facility] Comment on above: Performed By: #### C MP, LIPA #### [facility] [address] [place], [place] [id number] [place] Chloride [Moles/Vol] 103 mmol/L Normal 98-107 [facility] Comment on above: Performed By: #### C MP, LIPA #### [facility] [address] [place] [address] [place] CO2 [Moles/Vol] 27.2 mmol/L Normal 22.0-30.0 [facility] Comment on above: Performed By: #### C MP, LIPA #### [facility] [address] [place] [address] [place] Creatinine [Mass/Vol] 0.86 mg/dL Normal 0.66-1.25 [facility] Comment on above: Performed By: #### C MP, LIPA #### [facility] [address] [place], [place] [id number] [place] EGFR-AF [place] >60 Normal >=60 [facility] Comment on above: Performed By: #### C MP, LIPA #### [facility] [address] [place] [address] [place] EGFR-NON AF [place] >60 Normal >=60 [facility] Comment on above: Performed By: #### C MP, LIPA #### [facility] [address] [place] [address] [place] Globulin (S) [Mass/Vol] 3.3 g/dL Normal [facility] Comment on above: Performed By: #### C MP, LIPA #### [facility] [address] [place] [address] [place] Glucose [Mass/Vol] 111 mg/dL Critically high 74-106 [facility] Comment on above: Performed By: #### C MP, LIPA #### [facility] [address] [place] [address] [place] Potassium [Moles/Vol] 4.2 mmol/L Normal 3.4-5.0 [facility] Comment on above: Performed By: #### C SCARLET, LIPMatilda #### [facility] [address] [place] [address] [place] Protein [Mass/Vol] 6.5 g/dL Normal 6.1-8.2 [facility] Comment on above: Performed By: #### C SCARLET, LIPA #### [facility] [address] [place] [address] [place] Sodium [Moles/Vol] 139 mmol/L Normal 137-145 [facility] Comment on above: Performed By: #### C SCARLET, LIPMatilda #### [facility] [address] [place] [address] [place] Urea nitrogen [Mass/Vol] 11.0 mg/dL Normal 9.0-20.0 [facility] Comment on above: Performed By: #### C SCARLET, LIPA #### [facility] [address] [place] [address] [place] Urea nitrogen/Creatinine [Mass ratio] 12.8 mg/mg Normal [facility] Comment on above: Performed By: #### C SCARLET, LIPA #### [facility] [address] [place] [address] [place] AMYLASEon 01-18-2021 Amylase [Catalytic activity/Vol] 345 U/L Critically high 31-110 [facility] Comment on above: Result Comment: test repeated critical value verified Performed By: #### D DIM #### [facility] [address] [place] [address] [place] CBC AUTO DIFFon 01-18-2021 BASO # 0.1 103/ul Normal 0.0-0.1 [facility] Comment on above: Performed By: #### C BC #### [facility] [address] [place], [place] [id number] [place] Basophils/100 WBC (Bld) 0.7 % Normal 0.2-2.0 [facility] Comment on above: Performed By: #### C BC #### [facility] [address] [id number] [place] EO # 0.2 103/ul Normal 0.0-0.7 [facility] Comment on above: Performed By: #### C BC #### [facility] [address] [place], [place] [id number] [place] Eosinophils/100 WBC (Bld) 1.5 % Normal 0.9-7.0 [facility] Comment on above: Performed By: #### C BC #### [facility] [address] [place] [address] [place] Erythrocyte distribution width (RBC) [Ratio] 12.8 % Normal 11.0-15.0 [facility] Comment on above: Performed By: #### C BC #### [facility] [address] [place] [address] [place] Hematocrit (Bld) [Volume fraction] 42.1 % Normal 42.0-54.0 [facility] Comment on above: Performed By: #### C BC #### [facility] [address] [place], [place] [id number] [place] Hemoglobin (Bld) [Mass/Vol] 14.5 g/dL Normal 14.0-18.0 [facility] Comment on above: Performed By: #### C BC #### [facility] [address] [place], [place] [address] [place] IG # 0.04 10e3/ul Critically high 0.00-0.03 [facility] Comment on above: Performed By: #### C BC #### [facility] [address] [place] [address] [place] IG % 0.4 % Normal 0.0-0.5 [facility] Comment on above: Performed By: #### C BC #### [facility] [address] [place], [place] [address] [place] LYMPH # 2.4 103/ul Normal 1.2-3.8 [facility] Comment on above: Performed By: #### C BC #### [facility] [address] [id number] [place] Lymphocytes/100 WBC (Bld) 24.6 % Normal 20.5-60.0 [facility] Comment on above: Performed By: #### C BC #### [facility] [address] [place], [place] [id number] [place] MANUAL DIFF REQ NO Normal [facility] Comment on above: Performed By: #### C BC #### [facility] [address] [place], [place] [id number] [place] MCH (RBC) [Entitic mass] 32.6 pg Normal 25.9-34.0 [facility] Comment on above: Performed By: #### C BC #### [facility] [address] [place] [address] [place] MCHC (RBC) [Mass/Vol] 34.4 g/dL Normal 29.9-35.2 [facility] Comment on above: Performed By: #### C BC #### [facility] [address] [place], [place] [id number] [place] MCV (RBC) [Entitic vol] 94.6 fL Critically high 80.0-94.0 [facility] Comment on above: Performed By: #### C BC #### [facility] [address] [place], [place] [address] [place] MONO # 0.9 103/ul Critically high 0.3-0.8 [facility] Comment on above: Performed By: #### C BC #### [facility] [address] [place], [place] [address] [place] Monocytes/100 WBC (Bld) 9.7 % Normal 1.7-12.0 [facility] Comment on above: Performed By: #### C BC #### [facility] [address] [place], [place] [address] [place] NEUT # 6.1 103/ul Normal 1.4-6.5 [facility] Comment on above: Performed By: #### C BC #### [facility] [address] [place], [place] [address] [place] Neutrophils/100 WBC (Bld) 63.1 % Normal 43.0-75.0 [facility] Comment on above: Performed By: #### C BC #### [facility] [address] [place], [place] [address] [place] Platelet mean volume (Bld) [Entitic vol] 9.9 fL Normal 9.5-13.5 [facility] Comment on above: Performed By: #### C BC #### [facility] [address] [id number] [place] PLT 195 103/ul Normal 150-450 [facility] Comment on above: Performed By: #### C BC #### [facility] [address] [place], [place] [address] [place] RBC 4.45 106/ul Critically low 4.70-6.10 [facility] Comment on above: Performed By: #### C BC #### [facility] [address] [id number] [place] WBC 9.7 103/ul Normal 4.0-11.0 [facility] Comment on above: Performed By: #### C BC #### [facility] [address] [place], [place] [id number] [place] CT ABD/PELVIS WO CONon 01-18 CT ABD/PELVIS WO CON EXAMINATION: CT ABD/PELVIS WO CON HISTORY: UNSPECIFIED ABDOMINAL PAIN COMPARISON: No relevant comparison available. TECHNIQUE: Axial, Coronal, and Sagittal images were created without IV contrast. Dose reduction techniques were achieved by using automated exposure control and/or adjustment of mA and/or kV according to patient size and/or use of iterative reconstruction technique. FINDINGS: LUNG BASES: No visible pulmonary or pleural disease. Mild coronary atherosclerosis LIVER: No enlargement, atrophy, abnormal density, or significant focal lesion. BILIARY: No dilatation or calcification. PANCREAS: No enlargement of the distal pancreatic body and tail with surrounding mesenteric stranding and a small amount of free fluid SPLEEN: No enlargement or focal lesion. ADRENALS: No mass or enlargement. KIDNEYS: No mass, obstruction, or calcification. BOWEL/MESENTERY: Moderate colonic diverticulosis without evidence of acute diverticulitis. Nonobstructive bowel gas pattern. AORTA/VASCULAR: No aortic aneurysm. Atherosclerosis. RETROPERITONEUM: No mass or adenopathy. LYMPH NODES: No adenopathy. URINARY BLADDER: No visible focal wall thickening, lesion, or calculus. PELVIC ORGANS: Central prostate calcifications without enlargement ABDOMINAL WALL: No mass or hernia. BONES: No bony lesion or fracture. OTHER: Negative. IMPRESSION: Acute pancreatitis involving the distal body and tail Electronically authenticated by: RICK CIFUENTES Date: 2021-01-18 06:44 Normal [facility] Covid-19 PCR (CVDTB)on 12-26 SARS-CoV-2 (COVID-19) RNA GERA+probe Ql (Unsp spec) Not detected Normal NOT DETECTED [facility] Comment on above: Result Comment: This test is not yet approved or cleared by the [place] FDA. When there are no FDA-approved or cleared tests available, and other criteria are met, FDA can make tests available under an emergency access mechanism called an Emergency Use Authorization (EUA). The EUA for this test is supported by the Special Procedure Tech of Health and Human Service's (HHS's) declaration that circumstances exist to justify the emergency use of in vitro diagnostics for the detection and/or diagnosis of the virus that causes COVID-19. This EUA will remain in effect (meaning this test can be used) for the duration of the COVID-19 declaration justifying emergency of IVDs, unless it is terminated or revoked by FDA (after which the test may no longer be used). When diagnostic testing is negative, the possibility of a false negative should be considered in the context of a patient's recent exposures and the presence of clinical signs and symptoms consistent with SARS-CoV-2. Performed By: #### C VDTBH #### [facility] [address], [place] [address] [place] D-DIMERon 01-18-2021 D-DIMER 0.27 mg/L FEU Normal 0.19-0.[address] [facility] Comment on above: Performed By: #### D DIM #### [facility] [address], [place] [address] [place] D-DIMER COMMENTS SEE BELOW Normal [facility] Comment on above: Result Comment: Incr eases in D-Dimer concentration observed with thromboembolic events can be variable due to localization, size, and age of the thrombus. Therefore, a thromboembolic event cannot be diagnosed with certainty on the basis of the reference range. D-Dimers may also be elevated for a variety of disorders including: advanced age, , coronary disease, cancer, liver disease, infection, inflammation, hematoma, DIC, trauma, post-surgery, diabetes, thrombolytic or anticoagulant therapy, stress, and generalized hospitalization. Performed By: #### D DIM #### [facility] [address] [place], [place] [id number] [place] LIPASEon 01-18-2021 Lipase [Catalytic activity/Vol] U/L Critically high 23.0-300.0 [facility] Comment on above: Result Comment: test repeated critical value verified Performed By: #### D DIM #### [facility] [address] [place] [address] Belle Juarez PROF 14(COMP METB)on 021 Albumin [Mass/Vol] 3.5 g/dL Normal 3.5-5.0 [facility] Comment on above: Performed By: #### D DIM #### [facility] [address] [place], [place] [id number] [place] Albumin/Globulin [Mass ratio] 0.8 {ratio} Normal [facility] Comment on above: Performed By: #### D DIM #### [facility] [address] [place] [address] [place] ALP [Catalytic activity/Vol] 62 U/L Normal 38-126 [facility] Comment on above: Performed By: #### D DIM #### [facility] [address] [place], [place] [id number] [place] ALT [Catalytic activity/Vol] 118 U/L Critically high 21-72 [facility] Comment on above: Performed By: #### D DIM #### [facility] [address] [place], [place] [id number] [place] Anion gap [Moles/Vol] 11.9 mmol/L Normal [facility] Comment on above: Performed By: #### D DIM #### [facility] [address] [place] [address] [place] AST [Catalytic activity/Vol] 65 U/L Critically high 17-59 [facility] Comment on above: Performed By: #### D DIM #### [facility] [address] [place] [id number] [place] Bilirubin [Mass/Vol] 0.3 mg/dL Normal 0.2-1.3 [facility] Comment on above: Performed By: #### D DIM #### [facility] [address] [place] [address] [place] Calcium [Mass/Vol] 8.9 mg/dL Normal 8.4-10.2 [facility] Comment on above: Performed By: #### D DIM #### [facility] [address] [place] [address] [place] Chloride [Moles/Vol] 103 mmol/L Normal 98-107 [facility] Comment on above: Performed By: #### D DIM #### [facility] [address] [place] [address] [place] CO2 [Moles/Vol] 25.2 mmol/L Normal 22.0-30.0 [facility] Comment on above: Performed By: #### D DIM #### [facility] [address] [place] [address] [place] Creatinine [Mass/Vol] 0.89 mg/dL Normal 0.66-1.25 [facility] Comment on above: Performed By: #### D DIM #### [facility] [address] [place] [address] [place] EGFR-AF SOLOMON ISLANDER >60 Normal >=60 [facility] Comment on above: Performed By: #### D DIM #### [facility] [address] [place] [id number] [place] EGFR-NON AF [place] ISLANDER >60 Normal >=60 [facility] Comment on above: Performed By: #### D DIM #### [facility] [address] [place] [address] [place] Globulin (S) [Mass/Vol] 4.3 g/dL Normal [facility] Comment on above: Performed By: #### D DIM #### [facility] [address] [place], [place] [address] [place] Glucose [Mass/Vol] 123 mg/dL Critically high 74-106 [facility] Comment on above: Performed By: #### D DIM #### [facility] [address], [place] [address] [place] Potassium [Moles/Vol] 4.1 mmol/L Normal 3.4-5.0 [facility] Comment on above: Performed By: #### D DIM #### [facility] [address] [id number] [place] Protein [Mass/Vol] 7.8 g/dL Normal 6.1-8.2 [facility] Comment on above: Performed By: #### D DIM #### [facility] [address] [place], [place] [id number] [place] Sodium [Moles/Vol] 136 mmol/L Critically low 137-145 [facility] Comment on above: Performed By: #### D DIM #### [facility] [address] [id number] [place] Urea nitrogen [Mass/Vol] 17.0 mg/dL Normal 9.0-20.0 [facility] Comment on above: Performed By: #### D DIM #### [facility] [address] [place], [place] [id number] [place] Urea nitrogen/Creatinine [Mass ratio] 19.1 mg/mg Normal [facility] Comment on above: Performed By: #### D DIM #### [facility] [address] [place], [place] [id number] [place] RAPID COVID-19 ANTIGENon EUA Statement SEE BELOW Normal [facility] Comment on above: Result Comment: This test has not been FDA cleared or approved, but has been authorized by the FDA under an Emergency Use Authorization (EUA) for use by authorized laboratories certified under CLIA that meet the requirements to perform moderate or high complexity testing. This test has been authorized only for the detection of proteins from SARS-CoV-2, not for any other viruses or pathogens. The emergency use of this test is authorized for the duration of the declaration that circumstances exist justifying the authorization of emergency use of in vitro diagnostic tests for detection and/or diagnosis of Covid-19 under section 564(b)(1) of the Act, 21 U.S.C. 360bbb-3(b)(1), unless the declaration is terminated or authorization is revoked sooner. Performed By: #### D DIM #### [facility] [address] [place] [address] Belle Juarez SARS-CoV-2 (COVID-19) RNA GERA+probe Ql (Unsp spec) Negative Normal NEGATIVE [facility] Comment on above: Result Comment: Nega tive results are presumptive. They do not preclude infection and should not be used as the sole basis for treatment decisions. Additional confirmatory testing by a molecular method should be considered. Performed By: #### D DIM #### [facility] [address] [place] [address] [place] Juarez TROPONIN, HIGH SENSITIVITYon 01-18-2021 HSTROP 7.5 pg/mL Normal 4.0-42.2 [facility] Comment on above: Result Comment: CUT- OFF POINTS HAVE BEEN ESTABLISHED BASED ON THE FOURTH UNIVERSAL DEFINITIONS OF MYOCARDIAL INFARCTION. THE UPPER REFERENCE LIMIT (URL) OF TROPONIN, DEFINED THE 99TH PERCENTILE OF cTnI DISTRIBUTION IN A REFERENCE POPULATION, HAS BEEN CONFIRMED THE DECISION THRESHOLD FOR OK DIAGNOSIS. Performed By: #### D DIM #### [facility] [address] [place], [place] [id number] [place] US SINGLE QUAD RT UPPERon US SINGLE QUAD RT UPPER EXAMINATION: US SINGLE QUAD RT UPPER HISTORY: Epigastric pain COMPARISON: No relevant comparison available. FINDINGS: The visualized pancreas is normal in appearance. The liver is normal in contour. The liver measures 20.2 cm in length. Increase in hepatic echotexture. No focal mass. Area of hypodensity in the gallbladder fossa likely focal sparing. The gallbladder is normal in size. The gallbladder wall is thickened measuring 4.4 mm. Negative sonographic Mendez sign. Common bile duct measures 7.2 mm, dilated. The right kidney is normal in size, contour and echotexture measuring 11.8 x 6.1 x 6.9 cm per the cortex measures 2.1 cm, normal. No hydronephrosis or solid mass. IMPRESSION: Gallbladder wall thickening suggesting cholecystitis Increase in hepatic echotexture, suggesting hepatic steatosis Electronically authenticated by: RICK CIFUENTES Date: 2021-01-18 08:31 Normal [facility] XR CHEST 1 Von 01-18-2021 XR CHEST 1 V EXAMINATION: XR CHES T 1 V HISTORY: Epigastric pain COMPARISON: No relevant comparison available. TECHNIQUE: AP portable erect FINDINGS: LUNGS: No significant pulmonary parenchymal abnormalities. VASCULATURE: No increased pulmonary vasculature. PLEURA: No pneumothorax, effusion, or pleural thickening. CARDIAC: No cardiomegaly or cardiac silhouette abnormality. MEDIASTINUM: No visible mass or adenopathy. BONES: No fracture or visible bone lesion. OTHER: Negative. IMPRESSION: No acute disease. Electronically authenticated by: RICK CIFUENTES Date: 2021-01-18 06:39 Normal [facility] Vital Signs Date Time Vital Sign Value Performing Clinician Facility 06-29-2023 13:40-0500 Diastolic blood pressure 80 mm[Hg] Karen Jones MD Work Phone: [facility] 06-29-2023 13:40-0500 Systolic blood pressure 155 mm[Hg] Karen Jones MD Work Phone: [facility] 06-29-2023 13:31-0500 Body height 195.6 cm Karen Jones MD Work Phone: [facility] 06-29-2023 13:31-0500 Body mass index (BMI) [Ratio] 33.08 kg/m2 Karen Jones MD Work Phone: [facility] 06-29-2023 13:31-0500 Body weight 126.55 kg Karen Jones MD Work Phone: [facility] 06-29-2023 13:31-0500 Heart rate 87 /min Karen Jones MD Work Phone: [facility] 04-30-2023 15:30-0400 Body height 195.58 cm 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 Other [facility] Other 04-30-2023 15:30-0400 Body mass index (BMI) [Ratio] 32.13 kg/m2 Bushra Scottclary Other [facility] Other 04-30-2023 15:30-0400 Body weight 122.93 kg Bushra Vadimr Other [facility] Other 04-30-2023 15:30-0400 Diastolic blood pressure 84 mm[Hg] Bushra Vadimr Other [facility] Other 04-30-2023 15:30-0400 SaO2% (BldA) [Mass fraction] 94 % Bushra Francis Other [facility] Other 04-30-2023 15:30-0400 Systolic blood pressure 134 mm[Hg] Bushra Vadimr Other [facility] Other 04-08-2023 15:30-0400 Body height 195.58 cm Bushra Francis Other [facility] Other 04-08-2023 15:30-0400 Body mass index (BMI) [Ratio] 32.84 kg/m2 Bushra Vadimr Other [facility] Other 04-08-2023 15:30-0400 Body weight 125.65 kg Bushra Vadimr Other [facility] Other 04-08-2023 15:30-0400 Diastolic blood pressure 80 mm[Hg] Bushra Wilacher Other [facility] Other 04-08-2023 15:30-0400 SaO2% (BldA) [Mass fraction] 97 % 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 Other [facility] Other 04-08-2023 15:30-0400 Systolic blood pressure 144 mm[Hg] 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 Other [facility] Other 03-18-2023 08:30-0400 Body height 195.58 cm Bushra Francis Other [facility] Other 03-18-2023 08:30-0400 Body mass index (BMI) [Ratio] 31.99 kg/m2 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 Other [facility] Other 03-18-2023 08:30-0400 Body weight 122.38 kg 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 Other [facility] Other 03-18-2023 08:30-0400 Diastolic blood pressure 96 mm[Hg] 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 Other [facility] Other 03-18-2023 08:30-0400 Respiratory rate 16 /min 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 Other [facility] Other 03-18-2023 08:30-0400 SaO2% (BldA) [Mass fraction] 96 % 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 Other [facility] Other 03-18-2023 08:30-0400 Systolic blood pressure 144 mm[Hg] 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 Other [facility] Other Encounters Encounter Date Encounter Type Care Provider Facility Start: 08-27-2023 End: 08-28-2023 ambulatory [facility] Start: 08-27-2023 End: 08-27-2023 Subsequent hospital visit by physician Kendy Sotomayor Admin Room 1 [facility] Comment on above: Elevated coronary ar isabella calcium score Start: 08-12-2023 End: 08-13-2023 ambulatory [facility] Start: 07-06-2023 End: 07-06-2023 ambulatory Rick Shen Facility:[facility] Start: 07-02-2023 End: 07-02-2023 ambulatory 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 Other [employer] Other Start: 07-02-2023 Telephone encounter Bushra mackay [employer] Start: 06-29-2023 End: 06-29-2023 ambulatory [facility] Start: 06-29-2023 End: 06-29-2023 Encounter for preprocedural cardiovascular examination [facility] Start: 06-29-2023 End: 06-29-2023 Office outpatient new 30 minutes Karen Jones MD Work Phone: [facility] Comment on above: Primary hypertension ; Pre-operative cardiovascular examination; Left knee pain, unspecified chronicity; Hypertriglyceridemia; Primary osteoarthritis involving multiple joints; Other chronic pain; Nonspecific abnormal electrocardiogram (ECG) (EKG); Non-smoker Start: 06-29-2023 End: 06-29-2023 Patient encounter status Karen Jones MD Work Phone: [facility] Work Phone: Start: 06-23-2023 End: 06-24-2023 ambulatory 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 Facility:[facility] Start: 06-16-2023 End: 06-16-2023 ambulatory ANGELA IRELAND Not Available Start: 04-30-2023 End: 04-30-2023 ambulatory 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 Other [employer] Other Start: 04-30-2023 Office outpatient vi sit 15 minutes Bushra Scottclary [facility] Start: 04-08-2023 End: 04-08-2023 ambulatory Bushra De La Torreanton Other [facility] Other Start: 04-08-2023 Office outpatient vi sit 15 minutes Bushra Francis [facility] Start: 03-18-2023 End: 03-18-2023 ambulatory Bushra De La Torreanton Other [facility] Other Start: 03-18-2023 Office outpatient ne w 30 minutes Bushra Francis [facility] Start: 07-01-2021 End: 07-02-[address] VANESSA VALADEZ Facility: Start: 01-18-2021 End: 01-19-2021 Evaluation and management of inpatient DR VANESSA VALADEZ Facility:[facility] Start: 10-15-2020 End: 03-01-[address] SU LISTED REQUEST Facility: Procedures Date Procedure Procedure Detail Performing Clinician Start: 08-27-2023 NUCLEAR STRESS TEST TAN JONES Start: 08-27-2023 Cv strs tst xers&/or rx cont ecg trcg only Karen Jones MD Work Phone: Start: 08-12-2023 CT CARDIAC SCORING W O IV CONTRAST KAREN JONES Start: 06-29-2023 ECG 12-LEAD KAREN PAT Start: 06-29-2023 Ecg routine ecg w/le ast 12 lds w/i&r Karen Jones MD Work Phone: Plan of Treatment Date Care Activity Detail Author Start: 11-23-2023 End: 11-23-2023 Patient encounter procedure 11/23/2023 9:00 AM EDT Office Visit [facility] [address] [place] [address] Karen Jones MD [address] [facility] [address] [place] [address] [facility] Start: 06-29-2023 End: 06-29-2024 Alanine aminotransferase [Enzymatic activity/volume] in Serum or Plasma by With P-5'-P Alanine Aminotransferase Lab Routine Hypertriglyceridemia Nonspecific abnormal electrocardiogram (ECG) (EKG) Expected: 06/29/2023 (Approximate), Expires: 06/29/2024 [facility] Work Phone: Comment on above: Expected: 06/29/2023 (Approximate), Expi res: 06/29/2024 Start: 06-29-2023 End: 06-29-2024 Aspartate aminotransferase [Enzymatic activity/volume] in Serum or Plasma by With P-5'-P Aspartate Aminotransferase Lab Routine Hypertriglyceridemia Nonspecific abnormal electrocardiogram (ECG) (EKG) Expected: 06/29/2023 (Approximate), Expires: 06/29/2024 [facility] Work Phone: Comment on above: Expected: 06/29/2023 (Approximate), Expi res: 06/29/2024 Start: 06-29-2023 End: 06-29-2024 CT for calcium scoring WO contrast and CTA W contrast IV Heart and coronary arteries CT cardiac scoring wo IV contrast Imaging Routine Primary hypertension Nonspecific abnormal electrocardiogram (ECG) (EKG) Expected: 06/29/2023, Expires: 06/29/2024 [facility] Service Area Work Phone: Comment on above: Expected: 06/29/2023, Expires: Start: 06-29-2023 End: 06-29-2024 Lipid 1996 panel - Serum or Plasma Lipid Panel Lab Routine Hypertriglyceridemia Nonspecific abnormal electrocardiogram (ECG) (EKG) Expected: 06/29/2023 (Approximate), Expires: 06/29/2024 [facility] Work Phone: Comment on above: Expected: 06/29/2023 (Approximate), Expi res: 06/29/2024 Start: 03-27-2023 COVID-19 Vaccine () COVID-19 Vaccine () [facility] Start: 03-27-2023 Influenza vaccination Influenza Vaccine (#1) [facility] Start: 08-16-2021 COVID-19 Vaccine (4 - Pfizer series) COVID-19 Vaccine (4 - Pfizer series) [facility] Start: 2020 Zoster Vaccines (1 of 2) Zoster Vaccines (1 of 2) [facility] Start: 1992 DTaP/Tdap/Td Vaccines (1 - Tdap) DTaP/Tdap/Td Vaccines (1 - Tdap) [facility] Start: 1988 Hepatitis C screening Hepatitis C Screening [facility] Start: 1971 MMR Vaccines (1 of 1 - Standard series) MMR Vaccines (1 of 1 - Standard series) [facility] Start: 1970 Hepatitis B Vaccines (1 of 3 - 3-dose series) Hepatitis B Vaccines (1 of 3 - 3-dose series) [facility] Start: 1970 HIV screening HIV Screening [facility] Start: 1970 Lipid panel Lipid Panel [facility] Start: 1970 Screening for malignant neoplasm of colon [facility] Start: 1970 Yearly Adult Physical Yearly Adult Physical [facility] Immunizations Immunization Date Immunization Notes Care Provider Hoa reilly 06-21-2021 Do not use COVID-19 Pfizer 2 dose 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 Other [facility] Other 11-06-2020 Do not use COVID-19 Pfizer 2 dose 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 Other [facility] Other 10-15-2020 Do not use COVID-19 Pfizer 2 dose 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 Other [facility] Other Payers Date Payer Category Payer Unknown [employer] [facility] [id number] 2021-Present [address] [place] [address] [id number] 1970 Unknown [id number] 1970 Unknown [id number] 1970 Unknown [id number] 1970 Unknown [id number] 1970 Unknown [id number] [id number] 1970 Unknown [id number] [id number] 1970 Unknown [id number] [id number] 1970 Unknown [id number] [id number] 1970 Unknown [id number] [id number] 1970 Unknown [id number] [id number] 1970 Unknown [id number] [id number] 1970 Unknown [id number] 1959 Self-pay 1959 Unknown [id number] Unknown [id number] Social History Date Type Detail Facility Start: 06-29-2023 Sex Assigned At [facility] Other Start: 06-29-2023 Tobacco smoking status NEIS Never smoked tobacco [facility] Work Phone: Start: 06-29-2023 Tobacco use and exposure Smokeless tobacco non-user [facility] Work Phone: Start: 06-29-2023 Alcohol intake Current drinke r of alcohol (finding) [facility] Work Phone: Start: 1970 [facility] Start: 06-19-2023 End: 08-27-2023 Exposure to SARS-CoV-2 (event) Not sure [facility] Start: 06-29-2023 History of Social function [facility] Work Phone: Clinical Notes 07-01-2021 to 07-07-2023 Karen Jones MD - 06/29/2023 1:15 PM ESTPatient Instructions Note Date & Type Note Facility 07-07-2023 Note [id number] Note [id number] 07-06-2023 Note [facility] Clinical Discharge Summary PERSON INFORMATION Name ANGELA NANCE Age 53 Years 1970 Sex MALE Language Albanian PCP 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 CNP Marital Status Phone [facility] Acct# Arrival 07/06/2023 10:40:31 Visit Reason SURGERY - LEFT KNEE SCOPE Acuity LOS 014 07:35 Address: [address] [place] [address] Comment: PROVIDER INFORMATION VITALS INFORMATION Vital Sign Triage Latest Temp Oral Temp Temporal Temp Intravascular Temp Axillary Temp Rectal 02 Sat 99 % 99 % Respiratory Rate Peripheral Pulse Rate Apical Heart Rate Blood Pressure / 90 mmHg / 98 mmHg Comment: MEDICAL INFORMATION Allergy Info: No Known Medication Allergies Prescriptions Given: diclofenac (diclofenac sodium 75 mg oral delayed release tablet) 1 tab(s) Oral (given by mouth) 2 times a day. losartan (losartan 50 mg oral tablet) 1 tab(s) Oral (given by mouth) every day. Medication List: Medications to Continue That Have Not Changed Other Medications diclofenac (diclofenac sodium 75 mg oral delayed release tablet) 1 tab(s) Oral (given by mouth) 2 times a day. losartan (losartan 50 mg oral tablet) 1 tab(s) Oral (given by mouth) every day. Medications to Continue That Have Not Changed Other Medications diclofenac (diclofenac sodium 75 mg oral delayed release tablet) 1 tab(s) Oral (given by mouth) 2 times a day. losartan (losartan 50 mg oral tablet) 1 tab(s) Oral (given by mouth) every day. Medications to Continue That Have Not Changed Other Medications diclofenac (diclofenac sodium 75 mg oral delayed release tablet) 1 tab(s) Oral (given by mouth) 2 times a day. losartan (losartan 50 mg oral tablet) 1 tab(s) Oral (given by mouth) every day. Comment: Lab and Radiology Results Laboratory or Other Results This Visit (last charted value for your 07/06/2023 visit) No Laboratory or Other Results This Visit DIET & ACTIVITY Patient Activity Level: Patient Diet: Patient Activity Restrictions: DISCHARGE INFORMATION Discharge Disposition: Discharge Location: DEPART REASON INCOMPLETE INFORMATION PATIENT EDUCATION INFORMATION Instructions: Beka- Post Op Knee Arthroscopy (CUSTOM) Follow up: With: Address: When: SHELBY NATHAN [address] [place] [address], [address] [place] [address] Business (1) 07/15/2023 9:15 AM DIAGNOSIS Tear of medial meniscus of left knee Comment: PHYS DOC NOTES [facility] 06-29-2023 History of Present illness Narrative Referred by Dr Camargo and Beka for preoperative cardiac risk assessment. 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 Review of systems is negative for chest discomfort pressure tightness heaviness palpitations lightheadedness orthopnea paroxysmal nocturnal dyspnea dependent edema or claudication TIA or CVA type symptoms or bleeding diathesis Other than left knee pain, review of systems is negative or noncontributory. PER ORTHOPEDICS NOTE : 1. Primary osteoarthritis of left knee M17.12 L Inj/Asp: L knee 2. Internal derangement of left knee M23.92 3. Other tear of medial meniscus of left knee as current injury, initial encounter S83.242A Past Surgical History: He has a past surgical history that includes Appendectomy. Social History: He reports that he has never smoked. He has never used smokeless tobacco. He reports current alcohol use. He reports that he does not use drugs. Family History: Family History Problem Relation Name Age of Onset Cancer Mother Cancer Father Allergies: Patient has no known allergies. Outpatient Medications: Current Outpatient Medications Medication Instructions losartan (COZAAR) 50 mg, oral, Daily Last Recorded Vitals: Vitals: 06/29/23 1331 06/29/23 1332 06/29/23 1340 BP: 170/88 (!) 174/92 155/80 BP Location: Right arm Left arm Right arm Patient Position: Sitting Sitting Sitting Pulse: 87 Weight: 127 kg (279 lb) Height: 1.956 m (6' 5 ) Physical Exam: GENERAL APPEARANCE: Well developed, well nourished, in no acute distress. CHEST: Symmetric and non-tender. INTEGUMENT: Skin warm and dry, without gross excoriationis or lesions. HEENT: No gross abnormalities, no jugular venous distention no carotid bruit or scleral icterus NECK: Supple, no JVD, no bruit. Thyroid not palpable. Carotid upstrokes normal. NEURO/PSHCY: Alert and oriented x3; appropriate behavior and responses and responses, with normal balance and coordination LUNGS: Clear to auscultation bilaterally; normal respiratory effort. HEART: Rate and rhythm regular with no evident murmur; no gallop appreciated. There are no rubs, clicks or heaves. ABDOMEN: Soft, nontender, no masses or bruits. EXTREMITIES: Warm There is no edema noted. PERIPHERAL VASCULAR: Pulses present and equally palpable; 2+ throughout. Wt Readings from Last 3 Encounters: 06/29/23 127 kg (279 lb) Meds: Current Outpatient Medications Medication Instructions losartan (COZAAR) 50 mg, oral, Daily No Known Allergies LABS: No results found for: WBC , HGB , HCT , PLT , CHOL , TRIG , HDL , LDLDIRECT , ALT , AST , NA , K , CL , CREATININE , BUN , CO2 , TSH , PSA , INR , GLUF , HGBA1C , ALBUR Problem List: Patient Active Problem List Diagnosis Date Noted Hypertension 06/29/2023 Left knee pain 06/29/2023 Pre-operative cardiovascular examination 06/29/2023 Non-smoker 06/29/2023 Nonspecific abnormal electrocardiogram (ECG) (EKG) 06/29/2023 Hypertriglyceridemia 03/23/2023 Primary osteoarthritis involving multiple joints 03/23/2023 Other chronic pain 03/23/2023 Decreased testosterone level 03/23/2023 Hypopituitarism (CMS/HCC) 03/23/2023 Abnormal liver function tests 03/23/2023 Assessment: 1. Primary hypertension-recently started on losartan 50 mg daily 2. Preoperative cardiac risk assessment for left knee surgery-conservative measures have failed, significant left knee joint pain, EKGs were reviewed, I do not see major abnormalities on patient's EKG. There is left axis deviation, but that is not particularly diagnostic. A previous EKG from May was reported to show intraventricular conduction delay, I do not appreciate that finding. There are no pathological Q waves. There is no ST-T abnormality 3. Patient's quality of life and his likelihood is affected by his DJD 4. Patient is not a diabetic, and there is no family history of premature coronary artery disease 5. He is very active physically and does not report any cardiac symptoms 6. There are no murmurs on auscultation, there is no history of angina and there is no history or findings of congestive heart failure Recommendations: 1. Patient may proceed with knee surgery without further cardiac workup. 2. Please follow blood pressure and uptitrate medications or add new medications as needed 3. Talked about dynamic nature of coronary artery disease and the importance of seeking medical attention probably if symptoms develop 4. Once surgery is done, we will proceed with coronary calcium score. 5. Lipid profile 6. If coronary calcium score is high, we will proceed with stress test. At this point, the likelihood that this patient has flow-limiting coronary artery disease is almost 0%. Orders Placed This Encounter Procedures CT cardiac scoring wo IV contrast Lipid Panel Alanine Aminotransferase Aspartate Aminotransferase ECG 12 Lead Thank you for allowing us to participate in Mr. Nance's care, please do not hesitate to call if further questions arise, Sincerely, Karen Jones MD [facility] Follow up : after testing Karen Jones MD documented in this encounter [facility] Work Phone: 06-29-2023 Instructions Carmel Bray LPN - 06/29/2023 1:15 PM EST Please bring all medicines, vitamins, and herbal supplements with you when you come to the office. Prescriptions will not be filled unless you are compliant with your follow up appointments or have a follow up appointment scheduled as per instruction of your physician. Refills should be requested at the time of your visit. EKG done in office today Patient is cleared for surgery from a cardiac standpoint. documented in this encounter [facility] Work Phone: 06-25-[address] Shen reviews P AT information and testing results. Ok to proceed with procedure. [facility] 04-30-2023 Evaluation note Encounter Date Diagnosis Assessment Notes Apr, Primary hypertension (ICD-10 - I10) To goal. Prior to your visit today we reviewed your chart and outlined the tetsing and treatment needed for your care. We discussed the possible complications of high blood pressure, including increased risk for heart disease, stroke, and kidney disease. Our goal is to keep your blood pressure below 130/85 (an preferably < 120/80) and maintain a healthy weight with a BMI less than 26. We are working together to acheive these goals with the following plan; healthier diet, increased activity and exercise, understanding your medicaitons, and your complaince. You have been given relevant education handouts. [employer] Other 09-13-2023 Evaluation note* Encounter Date Diagnosis Assessment Notes Treatment Notes Treatment Clinical Notes Mar, Primary hypertension (ICD-10 - I10) Take medication as prescribed, keep follow up appointments, get any testing that's been ordered done in a timely fashion. Do not smoke. Call if any questions or problems. For Hypertension: Patient is advised to work on healthy diet choices and appropriate servings, weight control, regular exercise as directed, and salt avoidance. Monitor blood pressures at home and call if above target. Follow-up in 4 weeks for effectiveness. [employer] Other 08-23-2023 Evaluation note* Encounter Date Diagnosis Assessment Notes Treatment Notes Treatment Clinical Notes Feb, Primary hypertension (ICD-10 - I10) Patient blood pressure reading elevated while in the office today. Instructed patient to check blood pressures at home daily. Patient to notify office should SBP > 140 or DBP > 90 consistently. Patient verbalizes understanding and agrees to treatment plan. DIscussed with pt that the Diclofenaz can cause an evelevation in blood pressure. Discussed will stop this at this time. Do not smoke. Patient is advised to work on healthy diet choices and appropriate servings, weight control, regular exercise as directed, and salt avoidance. Monitor blood pressures at home and call if above target. Call in 2 weeks with updated blood pressure readings after stoping the Diclofenac. Feb, Other chronic pain (ICD-10 - G89.29) Feb, Pain in right knee (ICD-10 - M25.561) DIscussed with pt to stop the Diclofenac due to high blood pressure readings. May use Volatren gel. Would also like a referral to othro to discuss further options and possible injections. Feb, Pain in left knee (ICD-10 - M25.562) Feb, Screening PSA (prostate specific antigen) (ICD-10 - Z12.5) Risks and benefits of PSA screening discussed with patient today. Patient wishes to get PSA screening done. PSA screening lab ordered today. [employer] Other 12-06-2021 NotePROCEDURE: XR SHOULDER RT 2V or > COMPARISON: None. HISTORY: Impingement syndrome of right shoulder region FINDINGS: BONES:No fracture, acute abnormality, or significant arthropathy. SOFT TISSUES:Negative. No visible soft tissue swelling. EFFUSION:None visible. OTHER: Negative. IMPRESSION: No acute abnormality Electronically authenticated by: RICK CIFUENTES Date: 2021-07-01 20:40[facility]12-06-2021 NotePROCEDURE: XR KNEE RT 4V or > COMPARISON: None. HISTORY: Pain of right knee joint FINDINGS: BONES:No acute fracture or dislocation. Corticated bone fragment identified along the anterior intercondylar notch consistent with a remote avulsion fracture. Incidental fabella. Mild enthesopathic spurring of the anterior tibial tubercle SOFT TISSUES:Negative. No visible soft tissue swelling. EFFUSION:None visible. OTHER: Negative. IMPRESSION: Remote avulsion fracture anterior intercondylar notch Electronically authenticated by: RICK CIFUENTES Date: 2021-07-01 20:39[facility] Primary hypertension Unspecified essential hypertension Pre-operative cardiovascular examination Left knee pain, unspecified chronicity Hypertriglyceridemia Pure hyperglyceridemia Primary osteoarthritis involving multiple joints Other chronic pain Nonspecific abnormal electrocardiogram (ECG) (EKG) Non-smoker documented in this encounter [facility] Work Phone: [facility]No [facility] Other Evaluation note* Diagnosis Elevated coronary artery calcium score documented in this encounter [facility] Work Phone: History general Narrative - Reported* Type Description Date Surgical History Removal of Appendix Hospitalization History see surgical hx [facility] Other History general Narrative - Reported* Type Description Date Medical History Hypertension Surgical History Removal of Appendix Hospitalization History see surgical hx [facility] Other Reason for referral (narrative)* Consultation (Routine) - Authorized Specialty Diagnoses / Procedures Referred By Sally rick Referred To Contact Cardiology Diagnoses Primary hypertension Procedures Follow Up In Cardiology Karen Jones MD [address] [address] Karen Jones MD [address] [address] Referral ID Status Reason Start Date Expiration Date V isits Requested Visits Authorized [id number] Authorized 06/29/2023 06/28/2024 1 1 * Imaging (Routine) - Pending Review Specialty Diagnoses / Procedures Referred By Sally rick Referred To Contact Radiology Diagnoses Primary hypertension Nonspecific abnormal electrocardiogram (ECG) (EKG) Procedures CT cardiac scoring wo IV contrast Karen Jones MD [address] [address] Referral ID Status Reason Start Date Expiration Date Visits Requested Visits Authorized [id number] Pending Review Perform Procedure 06/29/2023 06/28/2024 1 1 * Cardiovascular (Routine) - Pending Review Specialty Diagnoses / Procedures Referred By Sally rick Referred To Contact Diagnoses Pre-operative cardiovascular examination Nonspecific abnormal electrocardiogram (ECG) (EKG) Procedures ECG 12 Lead Karen Jones MD [address] [facility] [address] [place] [address] Referral ID Status Reason Start Date Expiration Date V isits Requested Visits Authorized [id number] Pending Review 06/29/2023 06/28/2024 1 1 [facility] Work Phone: Summary Purpose Family History No Family History Records FoundNo Family History Records FoundNo Family History Records FoundNo Family History Records FoundNo Family History Records FoundNo Family History Records Found Advance Directives No Advanced Directives Records FoundNo Advanced Directives Records FoundNo Advanced Directives Records FoundNo Advanced Directives Records FoundNo Advanced Directives Records FoundNo Advanced Directives Records Found Reason for Referral Reason *FU 03/26 evaluate Diagnosis 1 Other chronic pain ( G89.29) Diagnosis 2 Pain in right knee ( M25.561) Diagnosis 3 Pain in left knee (M 25.562) Referral Organization [facility] Referring Provider First Name Bushra Referring Provider Last Name Wilachekatlin Referring Provider Specialty Nurse Pract itioner Referred Organization [facility] Referred Provider Angela Ireland Referred Address ,[place], [place],[address] Referred Provider Specialty Orthopedic S urgery Referral Priority Routine General Notes Shirley Cole 11:46:31 AM >received today, attachments made, notes locked, referral faxed to both pan Clinical Notes F: [phone] Specialty Diagnoses / Procedures Referred By Sally rick Referred To Contact Radiology Diagnoses Elevated coronary artery calcium score Procedures Nuclear Stress Test CHG MYOCARDIAL SPECT MULTIPLE STUDIES CHG MYOCARDIAL SPECT SINGLE STUDY AT REST OR STRESS Karen Jones MD [address] [facility] [address] [place] [address] Referral ID Status Reason Start Date Expiration Date V isits Requested Visits Authorized [id number] Authorized 08/17/2023 08/16/2024 5 5 Additional Source Comments (unrecognized sect ion and content) No Status Records FoundNo Status Records FoundNo Status Records FoundNo Status Records FoundNo Status Records FoundNo Status Records Found INFORMATION SOURCE (unrecogn ized section and content) DATE CREATED AUTHOR 07/03/2021 [facility] Specialist DATE CREATED AUTHOR AUTHOR'S ORGANIZ ATION 07/07/2021 [facility] DATE CREATED AUTHOR AUTHOR'S ORGANIZ ATION 06/18/2023 [facility] EPIC DATE CREATED AUTHOR AUTHOR'S ORGANIZ ATION 07/01/2023 [facility] DATE CREATED AUTHOR AUTHOR'S ORGANIZ ATION 07/09/2023 [facility] DATE CREATED AUTHOR AUTHOR'S ORGANIZ ATION 09/01/2023 [facility] REASON FOR VISIT (unrecogniz ed section and content) Reason Comments Establish Care Pre-op Clearance Referral [facility] knee scope Abnormal ECG Specialty Diagnoses / Procedures Referred By Contac t Referred To Contact Diagnoses Pre-operative cardiovascular examination Nonspecific abnormal electrocardiogram (ECG) (EKG) Procedures ECG 12 Lead Karen Jones MD [address] [address] Referral ID Status Reason Start Date Expiration Date V isits Requested Visits Authorized [id number] Pending Review 06/29/2023 06/28/2024 1 1 Specialty Diagnoses / Procedures Referred By Contac t Referred To Contact Radiology Diagnoses Elevated coronary artery calcium score Procedures Nuclear Stress Test CHG MYOCARDIAL SPECT MULTIPLE STUDIES CHG MYOCARDIAL SPECT SINGLE STUDY AT REST OR STRESS Karen Jones MD [address] [facility] [address] [place] [address] Referral ID Status Reason Start Date Expiration Date V isits Requested Visits Authorized [id number] Authorized 08/17/2023 08/16/2024 5 5 Care Teams (unrecognized sec tion and content) Ball Warper Tender Relationship Specialty Start Date End Date 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, TURBINE OPERATOR-DOUBLE BACK OPERATOR [address] [facility] [place] [address] PCP - General Family Medicine 06/29/23 Ball Warper Tender Relationship Specialty Start Date End Date 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 APRN-CNP PCP - General Family Medicine 06/29/23 Ball Warper Tender Relationship Specialty Start Date End Date 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 APRN-CNP PCP - General Family Medicine 06/29/23 Ball Warper Tender Relationship Specialty Start Date End Date 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 APRN-CNP PCP - General Family Medicine 06/29/23 FOR RECORDS PERTAINING TO PATIENTS WHO ARE OR HAVE BEEN ENROLLED IN A CHEMICAL DEPENDENCY/SUBSTANCEABUSE PROGRAM, SOME INFORMATION MAY BE OMITTED. This clinical summary was aggregated from multiple sources. Caution should be exercised in using it in the provision of clinical care. This summary normalizes information from multiple sources, and as a consequence, information in this document may materially change the coding, format and clinical context of patient data. In addition, data may be omitted in some cases. CLINICAL DECISIONS SHOULD BE BASED ON THE PRIMARY CLINICAL RECORDS. [facility] [employer] [facility]. provides no warranty or guarantee of the accuracy or completeness of information in this document.
[2023-10-23 08:05] LABS: Chol HDL Ratio 5.2; Cholesterol 225 mg/dL (<=200); HDL Cholesterol 43 mg/dL (40-60); Triglycerides 216 mg/dL (<=150); VLDL CHOLESTEROL 43.2 mg/dL
[2023-10-23 08:17] LABS: Prostate Specific Antigen Scrn 0.29 ng/mL (<=4.00)
== END 2023-10-23 06:37 | disposition home or self-care (01) ==
LOC: LAB 06:36
PROVIDERS: PCP Nurse Practitioner Family; Visit Provider Nurse Practitioner Family
DX: Z12.5 Encounter for screening for malignant neoplasm of prostate (principal); I10 Essential (primary) hypertension
CPT/HCPCS: 36415; 80061; G0103

== ENCOUNTER 2024-08-12 06:32 | Outpatient (OUT) | payer OTHER, SELFPAY ==
--- OUTSIDE RECORDS SUMMARY | 2024-08-12 06:35 | XMS_ITS | CCD ---
Author Organization [facility] CliniSypr Care Team Providers Care Vp [employer] Development Name Role Phone RORY, DR MENDEZ Primary Care Unavailable RORY, DR MENDEZ Admitting Unavailable VALADEZ, DR MENDEZ Attending Unavailable VALADEZ, DR MENDEZ Consulting Unavailable ESAU, DR RICK Griffin Consulting Unavailable REQUEST, DR SU LISTED Attending Unavaila ble REQUEST, DR SU LISTED Consulting Unavaila ble REQUEST, DR SU LISTED Admitting Unavaila ble VALADEZ, DR MENDEZ Primary Care Unavailable VALADEZ, DR MENDEZ Primary Care Unavailable FAWCINTHIA, Admitting Unavailable SHAIKH MACHUCA Attending Unavailable ESAU, DR RICK Griffin Consulting Unavailable SAMSA, KE Consulting Unavailable HARI, CHASE Consulting Unavailable FAWWAD, BRADFORD Consulting Unavailable 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 Unavailable ANGELA IRELAND Attending Unavailable Soniarbachekatlin MOTORCYCLE SUBASSEMBLER-Bushra SCHREIBER Primary Care Garry mishra 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 Primary Care Unavailable Beka, Angela Tatum Attending Unavail able Beka, Angela Tatum Admitting Unavail able Rick Shen Consulting Unavailable Beka, Angela Tatum Attending Unavail able Beka, Angela Tatum Admitting Unavail able 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 Primary Care Unavailable Soniarbacher MOTORCYCLE SUBASSEMBLER-Bushra SCHREIBER Primary Care Pro vider Soniarbacher 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Bushra Primary Care Pro vider KAREN JONES Referring Unavailable BUSHRA BLANCO Primary Care Unavailab KAREN Arevalo Referring Unavailable WILACHEBUSHRA Ann Primary Care Unavailab KAREN Arevalo Referring Unavailable BUSHRA BLANCO Primary Care Unavailab KAREN Arevalo Attending Unavailable ROHRBACHER, BUSHRA A Primary Care Unavailab le Allergies Allergy Classification Reported Allergen(s) Allergy Type Date of Onset Reaction(s) Facility (1 source) No Known Medication Allergies; Translations: [No Known Medication Allergies] Propensity to adverse reactions to drug (disorder) [facility] Repository (1 source) ALLERGIES NOT ON FILE; Translations: [ALLERGIES NOT ON FILE] Propensity to adverse reactions (disorder) [facility] [place] Repository Medications Current Medications Medication Drug Class(es) Dates Sig (Normalized) Sig (Original) aspirin 81 mg chewable tablet (1 source) Platelet Aggregation Inhibitor, Nonsteroidal Anti-inflammatory Drug Start: 12-07-2023 End: 12-06-2024 aspirin 81 mg chewable tablet Indications: Primary hypertension , Elevated coronary artery calcium score Chew 1 tablet (81 mg) once daily. 90 tablet 3 12/07/2023 12/06/2024 Active diclofenac sodium 75 mg delayed release oral tablet (1 source) Nonsteroidal Anti-inflammatory Drug take 1 tablet by mouth every twelve hours Diclofenac Sodium 75 MG 1 tablet Orally Twice a day Active pravastatin sodium 40 mg oral tablet (1 source) HMG-CoA Reductase Inhibitor Start: 12-07-2023 End: 12-06-2024 take 1 tablet by mouth once daily pravastatin (Pravachol) 40 mg tablet Indications: Hypertriglyceridemia Take 1 tablet (40 mg) by mouth once daily. 90 tablet 3 12/07/2023 12/06/2024 Active Completed/Discontinued Medications Medication Drug Class(es) Dates Sig (Normalized) Sig (Original) losartan potassium 50 mg oral tablet (16 sources) Angiotensin 2 Receptor Moriah Start: 04-08-2023 End: 12-06-2024 take 1 tablet by mouth once daily Losartan 50 mg tablet Discontinued 50 MG PO Daily 90 90 November 23, 2023 12:01pm June 30, 2024 8:46am meloxicam 15 mg oral tablet (3 sources) [...] disorder, unspecified] Chronic Disorders of lipid metabolism (11 sources) Hypertriglyceridemia; Translations: [Pure hyperglyceridemia] Onset: 03-23-2023 06-29-2023 Chronic Diverticulosis and diverticulitis (1 source) Diverticulosis of large intestine without perforation or abscess without bleeding; Translations: [DVRTCLOS LG INT NO PERF/ABSC W/O BL] Onset: 01-23-2021 Chronic Essential hypertension (20 sources) Essential hypertension; Translations: [Essential (primary) hypertension] Onset: 06-29-2023 Chronic Osteoarthritis (8 sources) Degenerative joint disease involving multiple joints; Translations: [Polyosteoarthritis, unspecified] Onset: 03-23-2023 06-29-2023 Chronic Other aftercare (2 sources) Treatment changed; Translations: [Other custodial (current) drug therapy] Onset: 12-07-2023 12-07-2023 Episodic Other connective tissue disease (1 source) Impingement syndrome of right shoulder; Translations: [IMPINGEMENT SYNDROME RIGHT SHOULDER] Onset: 07-06-2021 Episodic Other endocrine disorders (7 sources) Hypopituitarism; Translations: [Hypopituitarism] Onset: 03-23-2023 06-29-2023 Chronic Other nervous system disorders (12 sources) Chronic pain; Translations: [Other chronic pain] Onset: 03-23-2023 06-29-2023 Chronic Other nervous system disorders (1 source) Other chronic pain Chronic Other non-traumatic joint disorders (5 sources) Pain in right knee; Translations: [PAIN IN RIGHT KNEE] Onset: 07-01-2021 Episodic Other nutritional; endocrine; and metabolic disorders (3 sources) Body mass index 30+ - obesity; Translations: [Body mass index (BMI) 31.0-31.9, adult] Onset: 12-07-2023 12-07-2023 Chronic Other nutritional; endocrine; and metabolic disorders (2 sources) Body mass index (BMI) 31.0-31.9, adult; Translations: [Body mass index (BMI) 31.0-31.9, adult] Onset: 12-07-2023 Chronic Other nutritional; endocrine; and metabolic disorders (1 source) Obesity, unspecified; Translations: [Obesity, unspecified] 08-11-2024 Chronic Other screening for suspected conditions (not mental disorders or infectious disease) (20 sources) Other specified abnormal findings of blood chemistry; Translations: [Encounter for screening for malignant neoplasm of prostate] Onset: 01-23-2021 Episodic Residual codes; unclassified (9 sources) Non-smoker; Translations: [Other specified health status] Onset: 06-29-2023 06-29-2023 Episodic Unclassified (1 source) CONTACT W/AND (SUSP) EXPOS COVID-19; Translations: [CONTACT W/AND (SUSP) EXPOS COVID-19] Onset: 01-23-2021 Past or Other Problems Problem Classification Problem Date Documented Da te Episodic/Chronic Administrative/social admission (4 sources) Follow-up status; Translations: [Person consulting for explanation of examination or test findings] Onset: 12-07-2023 12-07-2023 Episodic Biliary tract disease (1 source) Acute cholecystitis; Translations: [ACUTE CHOLECYSTITIS] Onset: 01-23-2021 Episodic Other aftercare (2 sources) Other termite exterminator helper (current) drug therapy; Translations: [Other termite exterminator helper (current) drug therapy] Onset: 12-07-2023 Episodic Other non-traumatic joint disorders (9 sources) Pain in left knee; Translations: [Pain in joint, lower leg] Onset: 06-29-2023 Episodic Pancreatic disorders (not diabetes) (3 sources) Acute pancreatitis without necrosis or infection, unspecified; Translations: [ACUTE PANCREATITIS WO NECRS/INF UNS] Onset: 01-18-2021 Episodic Residual codes; unclassified (2 sources) Other specified health status; Translations: [Other specified health status] Onset: 06-29-2023 Episodic Results Test Name Value Interpretation Reference Range Facility Cholesterol in LDL Calc [Mas s/Vol]on 10-23-2023 Cholesterol in LDL [Mass/Vol] 139.0 mg/dL [facility] Comment on above: <100 mg/dl [id number] 0-129 mg/dl NEAR OR ABOVE [id number] mg/dl BORDERLINE [id number] mg/dl HIGH>190 mg/dl VERY HIGH Cholesterol in VLDL Calc [Ma ss/Vol]on 10-23-2023 Cholesterol in VLDL [Mass/Vol] 43.2 mg/dL [facility] Laboratory - Chemistry and C hemistry - challengeon 10-23-2023 Cholesterol [Mass/Vol] 225 mg/dL <=[address] [facility] Cholesterol in HDL [Mass/Vol] 43 mg/dL 40-[address] [facility] Comment on above: > or =60 mg/dl - LOW CARDIOVASCULAR RISK<40 mg/dl - HIGH CARDIOVASCULAR RISK Triglyceride [Mass/Vol] 216 mg/dL <=[address] [facility] No Panel Informationon 10-22 Prostate Specific Antigen Screen 0.29 ng/mL <=4.[address] [facility] Serum or plasma total choles terol/high density lipoprotein (HDL) cholesterol mass saida 10-23-2023 Cholesterol.total/C holesterol in HDL [Mass ratio] 5.2 {ratio} [facility] Comment on above: 3.3 - 4.4 LOW RISK4. 4 - 7.1 AVERAGE RISK7.1 - 11.0 MODERATE RISK>11.0 HIGH RISK [facility] Heart Perfusion W stress and W radionuclide Everardo 08-27-2023 Normal Lexiscan Myoview cardiac perfusion stress test. No evidence of ischemia or myocardial infarction by perfusion imaging. Normal left ventricular systolic function, ejection fraction 52%. No previous study available for comparison. Signed by: Kecia Durand 08/27/2023 5:23 PM Dictation workstation: [id number] Interpreted By: Kecia Durand, and Calvin Chawla STUDY: MYOCARDIAL PERFUSION STRESS TEST WITH LEXISCAN Performing facility: [facility], [address] [place] [address], [address], [place] [address] [facility] Provider: Karen Jones MD, FACC PCP: Dr. Juan David Blanco [facility] Supervising provider: Kevan Freedman MD, FACC INDICATION: Elevated CA score HISTORY: Gender: M; Age: 53 y/o ; Height: HT 195.6 cm cm; Weight: WT 126.554 kg kg. Abnormal EKG; High Cholesterol; HTN; Denies smoking. COMPARISON: No comparison. ACCESSION NUMBER(S): [id number] ORDERING CLINICIAN: KAREN JONES TECHNIQUE: ONE DAY [...] PERFUSION STRESS TEST WITH LEXISCAN Performing facility: [facility], [address] [place] [address], [address], [place], [place] [address] Provider: Karen Jones MD, FACC PCP: Dr. Juan David Blanco [facility] Supervising provider: Kevan Freedman MD, FACC INDICATION: Elevated CA score HISTORY: Gender: M; Age: 53 y/o ; Height: HT 195.6 cm cm; Weight: WT 126.554 kg kg. Abnormal EKG; High Cholesterol; HTN; Denies smoking. COMPARISON: No comparison. ACCESSION NUMBER(S): [id number] ORDERING CLINICIAN: KAREN JONES TECHNIQUE: ONE DAY [...] Kecia Durand 08/27/2023 5:23 PM Dictation workstation: [id number] [facility] Work Phone: Radiology Study observation (narrative) [facility] Work Phone: NM Heart Perfusion W stress and W radionuclide IVOrdered By: Kecia Durand on 08-27-2023 [facility] Work Phone: NUCLEAR STRESS TESTon 2023 NUCLEAR STRESS TEST Interpreted By: Kecia Durand and Calvin Chawla STUDY: MYOCARDIAL PERFUSION STRESS TEST WITH LEXISCAN Performing facility: [facility], [address] [place] [address] [address], [place] [address] [facility] Provider: Karen Jones MD, [facility] PCP: Dr. Juan David Blanco [facility] Supervising provider: Kevan Freedman MD, [facility] INDICATION: Elevated CA score HISTORY: Gender: M; Age: 53 y/o ; Height: HT 195.6 cm cm; Weight: WT 126.554 kg kg. Abnormal EKG; High Cholesterol; HTN; Denies smoking. COMPARISON: No comparison. ACCESSION NUMBER(S): [id number] ORDERING CLINICIAN: KAREN JONES TECHNIQUE: ONE DAY [...] Kecia Durand 08/27/2023 5:23 PM Dictation workstation: [id number] [facility] CT CARDIAC SCORING WO IV CON TRASTon [...] From the Fleischner Society 2017, Radiology. 2017 Edson;284 (1):228-243.) FLEISCHNER.ACR.IF.1 The remaining visualized extra vascular structures are unremarkable. Signed by: Denton Baires 08/12/2023 5:30 PM -------- ORIGINAL REPORT -------- Dictation workstation: [id number] Interpreted By: Denton Marroquin, STUDY: CT CARDIAC SCORING WO IV CONTRAST; 08/12/2023 9:43 am INDICATION: Signs/Symptoms:abnorm al testing. COMPARISON: None. ACCESSION NUMBER(S): [id number] ORDERING CLINICIAN: KAREN JONES TECHNIQUE: Using prospective [...] al. JACC 2015 (http://dx.doi.org/10 .1016/j.j acc.2015.08.035) Reading Organizational Development Manager: Dr. Denton Marroquin, Date: 08/12/2023 4:32 pm Signed by: Denton Marroquin 08/12/2023 4:33 PM Dictation workstation: [id number] [facility] Coding Summaryon 07-08-2023 Coding Summary HTMLBase 64 GvbgzhpcGDe7eRh+PGhlY WQ+OB2DXWPrS62mgCAwdY 7aO3GNVHoYNdhiSQYZJVt DDeOrnmRjFI2shXZvYVTt IC8+NR2ePHJwNpnszDPrt 4C2iHV5T86xbv3eLUamwE G7VRSwZzLybuunl8tibYc 6IDcuNmluOyBt TPPnxV81WIH9zD14Yv42f GWzaKJbm2qvyTv4RbEgNR MxAVS3oZmyFOtei9EqNDH oQ45nyUHun4C3 IOUbyNodxQWuMdJsmIP5b E0oNRkhmzyuu5ysrdpyAz y7ty06tLDxc4Y3xAF2S9Y oefF2AZRvjSQa IzsujDJIuB0pmubhl6vgu ywaVaPrXPVsVWc1RHt0LA IdfCxeUwGvWA04YXN2KMG hrmCnJ2FaEXFd oLhgMxY4z4B0Ha0KR5TDN wgoI0LDIUAPIBbpmMR+PC 85ho49L7XuAodsRft2WDO fUZV3zKB6pY9o IEIwZDrrx9G7lOV8S3Cib aLbga9pc9yqLSMsZTxmH0 1qhCStr2C2CEHecRZ1MDV tfXvzEaOlkL86 Oyc+MDIozDcsw8GfItqvd 1ywn6cxhMl4YsqnSORbhd AlhHmeKJZ7p1YrXr2gBVM nnGO9lBN4iM1b DvEbUhV1CPpoH897FwDen ZXiXnjeD13lO2GuwJJ+PH SmCee1EBRyhVyfHU3zC9Z hZGRpbmctbGVm tDaeYM9cGBLmwfypSRIug T8lVCDaU9j2GqKeFxV4FJ ebS7SgKYWyodgxBx70yA3 wAdCzIpS3NSkr S0CusgZ6OTCofUKvIEfdY BR8N95yu7O9JXNvNPBiYA G1gEF4fG5gaQjgikjqaRC mdDsgdmVydGlj MKaeGMzfV959CPYddGqmL kNvZGluZyBEYXRlOiAgMT IvMTMvMjAyMzwvdGQ+PHR uQAM8fUsxYJIz rPRkCEtrSp9vgPmvjKybN Y1qOROqazuaLCBcwZ9wUX HhuQIfdQonOS5yUYCeoqw fi158CbLzNVT8 SCNkhRWlP1KocE0jFlZoE RSrBYMnY2MkyNGmDLrjW9 27KMwnPzU8CHAjkiEmT0W sLWFsaWduOiB0 q6S9Qt4Jf7WhrqvwJ5Uis SFnDjBbIfrrFTc9E5IeYh wvdHI+VN69CUJtAN94YRd 8NRO3qUrlUUmg HIWyC1ChqJ5bWfQeUWJpP GRkOyc+PHRhYmxlIHdpZH RoPScxMDAlJyBzdHlsZT0 mSe9sQJFzYXWb sNwejDUdKaSxe2wcHQLdU KijUI2gmXwuE4CuwDN5XY Rkq3d8Wp09D40xV1ZbhNS +GMVcjTX7zXF6 kA9uCdNfBiL2LWxyN431A nHxzQTvEpyyw1fhv1lnlR s7KxQ4HOMtwpAltYtzGXR 1p6TwQr11J10b IHdpZHRoPSIxNSUiIHZhb Vcvtn8kfW3eQz8+PGNvbC M7nXS6aY3aYyDvMrI6TMu gZ130PyHksUMw Tzwmu6nqi6vheRf8AuQsT GEybeXzzDkyXQE1d5XoCu 46B9DvpUthx6BuLtd4ep1 9tFSwy1Y0eNX5 L7VrQFEoerfdgASnzSxcS P8eXVKmilpiFQYllY8yJL DcV2j2LoPqUbG0ZUwyP9M ddxH7YEUtxGZq CPInmFKErC7zqtbpt0cey zvmVoBaCHIiUMr2VAc1MI NhhRonWtEnMZY8NlS8BHG 3nDXyiQ7jhTjy ongymX1zQzp+KJB9mLZev YDDVY4lWpgbjRF+PHRkIH A8cKgvGRtcZSGlzU1fAPC aK4o7DpSxRgM0 WItmK4HmaoH7NAMwlQBaS ZTzoHLBzK0lrsvqv0zpgx ktEqSkHFGkMWw5OJq8NHL saWduOiBsZWZ0 JnB1JXF6lIPuoF9ilBaie vsmjU5cBix+QmlydGggRG Q8AIk8O1CwWds1LBYgiBb fDH5fqUCtBTmc Nq1uhEbrxEyeLU5zKWMtb nnfx372JtCfc6juBTHgzJ RfXGavUWQ5A78fl0Z6BSX xBNQwLHN4nEA2 kU7gpJzoeiyafIAidTfex hSeyVawWXllURkdD917HN AaiUeuUwWtSRs3I0EqHmy 6DJYjgDpvDD1x sJNvXFfuAr5raDanuDqjU Z6iNUVxzligs964JfLuw7 fpMJWnfOLcNOfxSWD8C45 sw0J6UWQzRWGw FZT6dYT8hJ4ayOwtrumpf GVmdDsgdmVydGljYWwtYW cdC384JCLitKywAjYhlKq 0U6EfSaf3REEv wOshXO9uePWgALgmHr0pu FovaNjfTU7gHIXfyhfgp4 51VxIut1lfZEGqgDKgCDd sIOK9M51qt2F4 RVSrYZJnQDO5zEG7cY2sf GlnbjogbGVmdDsgdmVydG beVRheWNqwF163MDZcrDu nPlBhdGllbnQg GGzePBj3S4GxXdojfGB+P L99BROmTA34dLOxsRAkc0 ildYn6QbVeNFDgNTD4bOh yVNrkm0PgSMZh T68jtUCfh8Y6TWWqmMerg LPuYtZdiGU3eR8yZGbumw mib7qqlbnaEdzik2lpqr9 5zZ37D96sCFxi ZHRoPSIzMCUiIHZhbGlnb r5wkK7wAb6+LULelMD4xD O5lV9tGILxZdZ3KRmpM95 9InRvcCIvPjxj t4kid3karIh3IlG4YAGog lAlhSdwOZD2l8BqTg28R1 9sIHdpZHRoPSIyMCUiIHZ juVdxkc8qlX6e Ii8+QWJcpCH0qIE5zF7pQ lWaVqN8GFcbX018FmPjzR QbNpddZ00eU8VuiBD+PHR gFpm1UVMyxDxm NR2txKGaPWjhWe0qMEH6Z cJjKjCmZSydW2YvLMKgjq maespgjVL5XFLqDRNhlN9 6Ky0laSrmRXIg wQEOrR3hhetuq4yilkktS qRyPBWjBFu0DNg3VHMhbF bmNlUyOFY1AkK3TRZ5qNB aqI3fpUbjavzh zQ0hH0QrPPTecfdkRc83y A6qLuZzXyR4HYlfPcu+Sk HHXXgdJaHGPQMpL38OVqs 1C6UgMwh8GNYa zRiiTX4mmAHxPJjvRq8dw GgwxKywST7gNGFghngsTZ HvyL5gCCMsbSIbnEqnWN6 pMSZvsejwf073 QrBfKSY2KXKopOYeW8Agp Z3hWzVsYEKsOIIqI6WtdD AiHDhvS054XKfiQoR8TXU kydEnI3CtSGCg dZgfLcP9o1N0Yn3pLM8jS M1oPByiKV11OX52bWKnq7 U8mNA5F2ZkAPRxnptentp kbSQ8QASfBICb bY88eKWxWHunYb3rc1B8k 884IKCxPWDyfO14Oq1yvT wwNZSxbPXQyB7drtzhe1g vcjogIzAwMDAw VXu3CCn0MCHguMggXuVfR YT6PnX3QAS3vDWtoU3flL mevwvylO9wAir+NTMgWWV uewM0X7GlLdg8 IHLzdEmzCD5phKRrBTcuA y6ctItkjXflOA5xWTMdie gzPQCajX0kAYKfaYAskHk eSF4jYLSbquhi r219CgUsGPD0HYKdsRYeF 6JcyH7xXoHuARVtKSZrU7 XkrYKnUIupX087OTncPrI 1OACjvySiB9Dc XIEniSioCbA8j9E3Jy3KG IhBSL78HW75lPUvf9C3zL V1V2VdRIAnbmmszsurmPK 3ITWxUAXbzI39 vVWwNStgTx0cb6S4c384D GSdBNImfM95Fr3kwUkhJX WscVANsK1oamnfx0zwmwm gIzAwMDAwMDt0 CGd3XVYymAlmCyBkYQO1V bD7XYL9rGXdrU1rbIldvy xbqH4dLpw+FVG2YSC9qmc jgqs3E9IoKldy dHI+CG91LWWfXR62kLGtu ABzv6hkoTu3UhBbMPXgVY J0iAabODzim4OaUERkD11 whDKbc3Y8ZCJz tTffeCTfJtQjeGH2nA3oZ Syxjbwwh8zqbqgsQzvgj4 vchr89yM41B02rZAmnDVS oPSIzMCUiIHZh xOpjkt6vgF2aDn5+PGNvb RQ5oOE0aZ3dJxMbBbK0HV ziE174YfGdaGNgZpcpo7p ny5jbuLw6BpRh UZDxvqEpaBpdNQV5b5JxD e55X26vXVdiFPQkWWWrVE IbDXVddPftiw2hsN5qZw3 +SN1py4ctej35 jE12vZF+UWXdUGT6iDefV CvfDFJheY2gDWimQkT9ML HcNkWbkJ79zTOdYYueAw7 ddAqhpIpoOQ6q WFExtccet262TvUua0mlU HQczOGbGPzoNLV0R41qq2 P4YPHtZBCsPXL9gAX3aA3 hbGlnbjogbGVm dDsgdmVydGljYWwtYWxpZ 884JKKxbMxnApDktIOyM8 lxhrQWNG4tXwgpnIJ+PHR uFGA9aJxnCTdu KCYgbF6lULKhV6e2AqEhI wN9GQqeN1AoenT8GDPukG BbODPltOLExN2cwmxbf5w vcjogIzAwMDAw XUq5FMw5JYEnqKeoNrUhO ES8XcV7EMA5bOJgnH2bpM skikdanN6xUeb+RklOOjw vdGQ+PHRkIHN0 yOrsDMjiBRVszZ3tXBOrT 4r7PxQdIsY9HTnfF8Djmo A7YHLetYAcVGAdzDCJtW5 qzzcrh8wwrlzu JfMeBIKnQFg0MOd0HEXdz NvfHgYtLCF9KnC4MER3aB WbwW3jqDhlnpmicV4rFzb +TVJOOjwvdGQ+ IXQqKJY6lEpyRDxzAIXyr X9jVBVaO3v4EvEpKvO6MI iyQ4SgdxC8SOPmcGMbEJQ cnKPJiM5rmthz q6jplzedAnOcPRPcXJk1S Js4ATKamUhtBrCjSUH5Om L8ITX2dBVrkB2zzNvkpam wfW8dVlm+UGF5 KFZ2UD38HM08I9ZbXeabf GFibGU+PHRhYmxlIHdpZH RoPScxMDAlJyBzdHlsZT0 jIz6oBFDwXUEl bGx (more content not included)... [facility] Consent Formson 07-07-2023 Consent Forms [id number]#1. 00OTGTIFF [facility] Consultation/Specialist Note on 07-07-2023 Consultation/Specia list Note [id number]#[facility]. [facility] Instructions [id number]#[facility]. [facility] Recordon 07-07-2023 MAGR Intraoperative Record MAGR Intra-Op Record Summary Primary Physician: Angela Ireland DO Finalized Date/Time: 07/07/23 14:38:47 Pt. Name: ANGELA NANCE JAVIER /Sex: 1970 MALE Med Rec #: [id number] Physician: Angela Ireland DO Financial #: [id number] Pt. Type: D Room/Bed: / Admit/Disch: 07/06/23 [...] Role Performed Surgeon - Primary Anesthesiologist of Dural Mechanic Record Time In 07/06/23 14:02:00 07/06/23 14:02:00 07/06/23 14:02:00 Time Out 07/06/23 14:33:00 07/06/23 14:50:00 07/06/23 14:50:00 Procedure Arthroscopy Knee(Left) Arthroscopy Knee(Left) Arthroscopy Knee(Left) Last Modified By: Ariadne Craft RN, Barbara RN Long, Barbara RN 07/06/23 14:51:56 07/06/23 14:51:56 07/06/23 14:51:56 Entry 4 Entry 5 Case Attendee Bloemer, Anika BLOCK PILER Rick, Luci M CSFA Role Performed Scrub Personnel Live Truck Technician Time In 07/06/23 14:02:00 07/06/23 14:02:00 Time Out 07/06/23 14:50:00 07/06/23 14:50:00 Procedure Arthroscopy Knee(Left) Arthroscopy Knee(Left) Last Modified By: Ariadne Craft RN, Barbara RN 07/06/23 14:51:56 07/06/23 14:51:56 Surgical Procedures MAGR Pre-Care Text: A.20 Verifies operative procedure, surgical site, and laterality Im.150 Develops individualized plan of care Entry 1 Procedure Arthroscopy Knee Primary Procedure Yes Primary Surgeon Angela Ireland Left Rc DO Surgeon Comment LEFT KNEE SCOPE - [...] Craft RN, Anika Palomino CST, Luci Cabrera CSFA Last Modified By: Ariadne Craft RN 07/06/23 [...] Additional Operative le (more content not included)... [facility] Outside Recordson 07-07-2023 Outside Records [id number] [facility] Telemetry Strips [id number]#1. [facility] 07-06-2023 Anesthesia Note Patient: ANGELA [...] 06 15:10) Resp Rate 16 br/min (JUL 06 15:10) SBP H 143 mmHg (JUL 06 15:10) DBP H 98 mmHg (JUL 06:) General: [...] on: 07/06/2023 15:21 EST] Baljeet Rees MD [facility] Anesthesia Note Patient: ANGELA NANCE Age: 53 [...] list: All Problems Hypertension / SNOMED CT 5897057109 / Confirmed Left knee pain / SNOMED CT 5241563123 / Confirmed Histories Family History: No family history items have been selected or recorded. Procedure history: Appendectomy ([id number]). Social History Electronic Cigarette/Vaping Assessment Electronic Cigarette [...] Oriented. Review / Management Laboratory Results Plan [employer] [employer] (ASA) physical status classification: Class II. Anesthetic Preoperative Plan Anesthesia: General. , Plan for LMA. Anesthetic plan, risks, benefits, and alternatives discussed with the patient and/or family. Patient verbalized understanding. Informed consent was given. Consent was signed by the patient. present at interview. . [Electronically Signed on: 07/06/2023 12:34 EST] Baljeet Rees MD [Verified on: 07/06/2023 12:34 EST] Baljeet Rees MD [facility] Inpatient Patient Summaryon 07-06-2023 Inpatient [place] [address] Patient Discharge Instructions Name: ANGELA NANCE : 1970 Patient Address: [address] [place] [address] Primary Care Provider: Name: 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 CNP After you are discharged if you find you have any questions, please, call [phone] ext [phone] to speak to a nurse. Discharge Diagnosis: [...] alcohol and/or drug addiction problems; contact the [facility] 16/02 Crisis Hotline -Text 4HBRV to 960178. If you received any narcotics, sedation, or [...] business decisions or sign any legal documents [facility] would like to thank you for allowing us to assist you with your healthcare needs. The following includes patient education materials and information regarding your injury/illness. ANGELA NANCE has been given the following list of follow-up instructions, prescriptions, and patient education materials: Follow-up Instructions With: Address: When: SHELBY NATHAN [address] [place] [address], [address] [place] [id number] Business (1) 07/15/2023 9:15 AM Medications During [...] or concerns, please call the office at [phone]. Viruses or Bacteria What?s got you sick? [...] for Disease Control and Prevention March [facility] Summary Primary Physician: Angela Ireland DO Finalized Date/Time: 07/06/23 15:09:51 Pt. Name: ANGELA NANCE D.O.B./Sex: 1970 MALE Med Rec #: [id number] Physician: Angela Ireland DO Financial #: [id number] Pt. Type: D Room/Bed: / Admit/Disch: 07/06/23 10:40:31 - Institution: PACU Case Times MAGR Entry 1 In PACU I 07/06/23 14:49:00 Discharge from PACU 07/06/23 15:12:00 I Last Modified By: Selene Bryson RN 07/06/23 15:09:47 Finalized By: Selene Bryson RN Document Signatures Signed By: Selene Bryson RN 07/06/23 15:09 [facility] MAGR Postoperative Recordon 07-06-2023 MAGR Postoperative Record MAGR Phase II Record Summary Primary Physician: Angela Ireland DO Finalized Date/Time: 07/06/23 15:47:35 Pt. Name: ANGELA NANCE JAVIER [place]./Sex: 1970 MALE Med Rec #: [id number] Physician: Angela Ireland DO Financial #: [id number] Pt. Type: D Room/Bed: / Admit/Disch: 07/06/23 [...] Signed By: Danika Silva RN 07/06/23 15:47 [facility] MAGR Preoperative Recordon 1 09-06-2022 MAGR Preoperative Record MAGR Pre-Op Record Summary Primary Physician: Angela Ireland DO Finalized Date/Time: 07/06/23 14:26:15 Pt. Name: ANGELA NANCEJUAREZ [place]./Sex: 1970 MALE Med Rec #: [id number] Physician: Angela Ireland DO Financial #: [id number] Pt. Type: D Room/Bed: / Admit/Disch: 07/06/23 10:40:31 - Institution: Pre-Op Case Times MAGR Pre-Care Text: Patient will be optimally prepared [...] Signed By: Ariadne Craft RN 07/06/23 14:26 [facility] Operative Report - Surgeon/P luzmaria 07-06-2023 Operative [...] on: 07/06/2023 15:07 EST] Angela Ireland DO [facility] Patient Handouton 07-06-[address] [place]'S [...] or concerns, please call the office at [phone]. [facility] Progress Note - Nurseon - Progress Note - Nurse Spoke with pt and informed him to be here at 1045 and NPO after MN, he verbalizes understanding. [Electronically Signed on: 07/03/2023 13:35 EST] Zayra Rodriguez RN [Verified on: 07/03/2023 13:35 EST] Zayra Rodriguez RN [facility] ECG 12 Leadon 06-29-2023 Normal sinus rhythm at 87 bpm [place] interval 158 ms QRS duration 110 ms QTc 433 ms left axis deviation [facility] Work Phone: Coding Summaryon 06-25-2023 Coding Summary HTMLBase 64 AipgmpkuQEl0aOm+PGhlY WQ+IS4CJGPaD86ilJZwyR 3pQ4HZURnUHnduICMULYq HLgHqleUhKA7tdBBoMQYg IC8+AN7sQVPlKbdnvJTbx 2Z6iLD4S43qgl9aCQcgyS B5PDNsDuLyfjnjp9ctgXm 6IDcuNmluOyBt VSJknZ86AJF6qU13Xq15z LOxuIUzy9bziOr6CbZnBE HpABT7kJqxKCvwx9NbNYT iU99kzASgx9J8 BWSsaXzxwDNxXwEjaCC2f B2yEXorjvpth6txhsljOo k4ps64sJZup4G7xYE0H2U mocB4ZVPdnRJq KekfwDGLzS3oybeli0kof phdLtDbHDEgADt3CLl9AJ VjhZvaJwHgUJ24XNU8UMV fsjKfD5WiPFDs qXxtFjM2x0C0Vr1DH3SCV bkhY9FOGKUXBWddfHI+PC 96hf84W2LfWmcmMpy5ABX gHSU1kDK7nL4u UGNvHOysa6S2sJS5S3Mly zIqfp4ky7ueDVYhZOmzT9 4nlSZfy1X0SOTjbWC1URQ ngSzzKaWyeD28 Oyc+JDGwsSyxa6OuMlavr 1bhg9wgnDo8RtbrHOFibj KthRdqCHC6n9KfIp8uRRQ roHY5wJG2jB9h MhJfJpN4TLyvA044EnWwo NIpZnnqC96lC4VuxEA+PH FmMry8NQXmhAduAM9qA5C hZGRpbmctbGVm xZlfFA4xWQNzjfdwNHQfw O6iQUUtU8v4BuEmIvR6PD prT7OwDNMjmltdHy53wY0 eDzWsLxV7IQac Y5MtlwC6ARHtgZWxORniF WE5A22ek3N8VGJkFGAjQM C8wVZ4rU8rqQfatbcdcEN mdDsgdmVydGlj MCyiMSefA255QQTohZeuY kNvZGluZyBEYXRlOiAgMT EvMzAvMjAyMzwvdGQ+PHR sLGN4hXlhPWDc kLDdYWvaMi3ucCaimHwtM U4vIPBzfotrIXNrvE2sPC CvkWNpdUxmKG8uJKOcjrm gn057FcVvJGC2 GREfbTWtT7QroN9iYeTyR OHdMTTaW5ShdNZsCFpyG2 88YZtrVnU6AOTrbyGnX4N sLWFsaWduOiB0 y9E4Bd9Fm5RfzksxV9Vpq OZuEtPxSmlxRSs2S2GxTr wvdHI+OT29ZDYhII02ISv 5AFW4oEjpVDye CGHcZ0EzdS0jDgZxPOBhK GRkOyc+PHRhYmxlIHdpZH RoPScxMDAlJyBzdHlsZT0 oJq1hTSHaQEFf bBhjfIJpJkMdo4hmSNJuO HjkMM3mdIsjC2YgeJD5QT Sbk8a2Ev42O48sP7UkvNG +FUOrwKS5eOR2 wX2lRgPpXwP2PTbwE110Y bAdnRYnRjtln1rkv9waxR w3WuX1HRSrinLumAvbRGW 8q1RiGo52R04m IHdpZHRoPSIxNSUiIHZhb Ttwml9hfX2hRe9+PGNvbC Y6vLJ1wZ7uXkUqPlP9EGf iU616JqDclCWs Hxvrf3dqq0sofDa5KdSvC SJsghOyyWgeOLD9g2XaRe 17O2UsuXhdv1RxQbq8vw5 2mTNjh9X5bGZ7 E7IbKFWiyuxfkCTslXrjF X9vMZDmkucgMBJhmS9hWD KfV1q1WrZzXlM1YRruA4U jfaR0GNEflFDn DQBmfBLLxC2nltsmg6nog puwQwIjHYUfHRg1LXe5YG FpbRphOwXwVJG0QlV8WKA 6tMQekG2lzDgd slexyA0dAtk+RVR3bGNrc LHLLO1aJmtbfJZ+PHRkIH W0sWkzNObjCBPfvN6vFTP qL8u0CoInIkH7 GNafS8RytjK2GDKapVRfY LDumKLTkY8cfeqlf1vfad qpCyMdTCTtCYq6CXr0ODA saWduOiBsZWZ0 CvO5EJS0uAEtbO4cdAurh icyuL0gUxh+QmlydGggRG O7AXj7X5FqEuo2QAJwtQm aKI8uwDJjAUsx Ol1yyPxbdIcpHK9cDSImv cljz741WfYie8iwECEioZ GtTRqqHHS2E91qx7D7SXS rRPEaJXR5vMP1 mT9wuAvukcmeoOYxwIdkt aUnwYlfYHqqGBgxA500WZ HqxEwyNjWoGAl2Z1VeCep 4PKNfbEceMA9v kNVpUMllSd8gmAumoFtgR T4iGDQkykjjl968BoBxl0 jwYIDwgRGcMIrrVIX3V61 od7Y3OAOpGMGi VBL4zBV8bQ0jeOzrdmwah GVmdDsgdmVydGljYWwtYW wcT228OADwiKgeTmApfPy 6E9EbTrl3VOKn qJgsQH7anPZwQQygTy7lp IltiWjmLS5lZSIwbxpeo9 65ZzWaz1vuJIHsmGOpYKn tQLC8P93rj6N1 AGItHWWcVOI1bVW6zN0cv GlnbjogbGVmdDsgdmVydG vyUWmgERrrG361PYZspYy nPlBhdGllbnQg WGjpLDs5Q3AgEtcsdMK+P E97FKOcUI19xMObfTOef1 fxgAv6AdLiJYVrHDU9rBz dAInok9OqHFPe A15exZJle4G1UKUyuHgwz MTcMlPmgBM6cC6tEHcdkg pzi0tngqexNnwtp2irfc7 4bH27U10vBBmg ZHRoPSIzMCUiIHZhbGlnb j3yjM2dPw4+NVIctLU8fQ Y8vR2zHBOnAwM0ZIkcY68 9InRvcCIvPjxj r8obl2ypxVf2HwS9ZVEbi cRxeCcpEIY7b2PwJr51J9 9sIHdpZHRoPSIyMCUiIHZ woAwdgq2mtL9g Ii8+QOJgtQX7nCY5mR3yB qEhZrA0UJibE251JiGetE CcRgcqG24dI6XkkWQ+PHR rGix8TPFcqKyz SF8icHMtYFjcPr1qTJJ4W jWgIxMkAHkrK0BvIFBprx vcrwevyNO1MWXyISBqcC1 9Uy1fiKxmSJEi iNVBrL7pdrltg2ltyobgT lYlAAArZAb4HSf2ISDjjY wnXtDhOGO4QeF7EDD3jIM guM2raLhxuhyx fY8lN8ToWEQbkiabSq90c T8pCfYgEeJ4NDsiRdg+Sk PNNLuqUmDMUPFkW19AYfi 9Y0RrIyy2GELw aJwuKP4qjRYuKJfzWx6jf KwihDalUQ1xDAYwsqttRJ QqdW3qIIZwhBQhbWziOJ4 rVXBryywtu416 PvVxCDE0NBIpeCKwD8Tun U7zMeJmBCMjUKBmC6FvaX HlJEkiJ086XCfsOyZ7ULQ hplBtH4BoHJZs pUzyCvQ0g2N0La7oDT0bU X7lGTimTZ31NE68iMXkr6 A2tML6K3ShMCFekgtctgl dxFC3XNPhQQZh gZ73dZRaNOoaSd2sx7R4u 530GHKuCUGgbG45Vh1jdI pxMGRyoQLNjZ1lfsxmp6a vcjogIzAwMDAw LQi8UMe2TEOhfIitSjRyE NZ4GuJ0VDR2vQCfjW4slC wyqeapwJ9rIaj+NTMgWWV agoK6G5IhQes7 ICFgkCnlDU2jvHJeZPvlZ c5axHaudDghOD4xFYPolk hyOBVtzL0vTKWnrKWceKh yWC3hQYKhdlcl h566JhOeYWY7ZWCmjDFcT 1JglK2aCbRjTDFkNNLzT7 HiqGXfZJbfO721DAmnIpX 2IURkofKtY3Ym NEUlvZduJqO8e2H7Rh4BN GhIZE12OM09pYUwc4E1nZ K0E3WaCIWhcarpbueguED 6UKWeKRWciX46 rPHiKVrgFs0kz3A2a402N IEeVZSgoB77Vo3cbHyoOH MrtUIGlX4mxpjbw5nnzho gIzAwMDAwMDt0 DMc4WDAuoDijGuDqLLU1T fP4VUY7vUOboJ4pwFcluo kjcP5bCkb+G7D5Y1PoVno vdHI+PM76KNOe KQ29kBKpqRJlr9ligLn1C hVsEMFoTNW4bIadDQfym1 SiNPWyT85azLRyo4Y2GIB vbGxhcHNlOyBl uIU1vX4qIIrrkbwom8cxr olhFiaef4kgtb26aU95R0 9sIHdpZHRoPSIzMCUiIHZ ksXjnvi6jiS0h Ii8+IGVgiNG9wRH6qV3aE gYbOuO3NPrtN766GfDylW JoRgleg9xma2zocVf7PhA wJSIgdmFsaWdu HAZ5q4IkIu51T70eDKzvB HRoPSIyMCUiIHZhbGlnbj 0myI7qWq7+IB4rj7eakb8 0eK87uWL+PHRk EVG1zNufASsfTRZmtC8uS MdeWgO1XYUbQdFdoD71qZ KjRSrjIm2ugSmocFcfGX9 rRYWhgcgpe233 WyEna9tcOSLjnYDtONdpJ UL7J63kl1Q4ZQAeAPZeEJ Q2yKR8pW7wvTqwfcaruCD mdDsgdmVydGlj PAxmRDdsI556AZTbkNnkW lSuqYMzO6lrjvDWSA0fVi wvdGQ+GRLwCAB8dLznOFu yWRHwvP4hPRXy O8b7WhIuDcN1KZnbW6Jyr uK0YWRrqRSgGFIzbUKBcM 2gkzrij5zjvwrqLnMnORM vBEu3ACt6HSHt bQmwPnPaQCO3OaF7TCJ9q ONaoG1waByyguqglL8nGt c+RklOOjwvdGQ+PHRkIHN 0eWxlPSdwYWRk nB9hXWLoD6g3WqXfDoZ7L EcrV7ApnrE0DLNloTGrHY RbkYLGvW5rqavvt7irxaj gIzAwMDAwMDt0 GQf7AQEmtDxnMgOhMFZ3W xZ8ZPJ3zFGyyK7trXdcpf rbjR9lGwp+TVJOOjwvdGQ +SFIrYBW4tYhe GSvaOCPpgH8kLEPiT5j0B lWhNcH8TYjjG8ZwerX2FK WssUPlULImtIZVfJ6rmmn me9paziogVlWd VMQrFFs3HRw0UJAevGmcQ uVcDGR6VoF3LJE9fXZadV 7dkXyoiljpdU9fWri+UGF 8EUM1TM90FA59 F0YtDmweoTIaiUA+PHRhY mxlIHdpZHRoPScxMDAlJy ExuQijNK7yBr7lHBIoYMG vbGxhcHNlOiBj b2x (more content not included)... Normal [facility] .Auto Diff 06-23-2023 Auto Ozark % 8 % Normal 08-07 [facility] Comment on above: Performed By: #### 1 [id number], [id number], [id number] ####[facility] (DEFAULT)[address] [place] [address] 99544 Baso Abs# 0.1 x10 Normal 0.0-0.2 [facility] Comment on above: Performed By: #### 1 [id number], [id number], [id number] ####[facility] (DEFAULT)[address] [place] [address] 10268 Basophils/100 WBC (Bld) 0.8 % Normal 0.2-2.0 [facility] Comment on above: Performed By: #### 1 [id number], [id number], [id number] ####[facility] (DEFAULT)[address] [place] [address] 97502 Eos Abs# 0.1 x10 Normal 0.0-0.4 [facility] Comment on above: Performed By: #### 1 [id number], [id number], [id number] ####[facility] (DEFAULT)[address] [place] [address] 84589 Eosinophils/100 WBC (Bld) 0.7 % Low 0.9-4.0 [facility] Comment on above: Performed By: #### 1 [id number], [id number], [id number] ####[facility] (DEFAULT)[address] [place] [address] 78022 Lymph Abs# 2.3 x10 Normal 1.3-2.9 [facility] Comment on above: Performed By: #### 1 [id number], [id number], [id number] ####[facility] (DEFAULT)[address] [place] [address] 13646 Lymphocytes/100 WBC (Bld) 28 % Normal 14-48 [facility] Comment on above: Performed By: #### 1 [id number], [id number], [id number] ####[facility] (DEFAULT)[address] [place] [address] 98081 Ozark Abs# 0.7 x10 Normal 0.0-0.8 [facility] Comment on above: Performed By: #### 1 [id number], [id number], [id number] ####[facility] (DEFAULT)[address] [place] [address] 15475 Neut Abs# 5.1 x10 Normal 1.5-9.2 [facility] Comment on above: Performed By: #### 1 [id number], [id number], [id number] ####[facility] (DEFAULT)[address] [place] [address] Neutrophils/100 WBC (Bld) 62 % Normal 44-88 [facility] Comment on above: Performed By: #### 1 [id number], [id number], [id number] ####[facility] (DEFAULT)[address] [place] [address] Standardon 06-23-2023 eGFR Non AA >60 Invalid Interpretation Code [facility] Comment on above: Performed By: #### 1 [id number], [id number], [id number] ####[facility] (DEFAULT)[address] [place] [address] eGFR AA >60 Invalid Interpretation Code [facility] Comment on above: Performed By: #### 1 [id number], [id number], [id number] ####[facility] (DEFAULT)[address] [place] [address] 50600 Anion gap [Moles/Vol] 11.9 mmol/L Normal 5.0-19.0 [facility] Comment on above: Performed By: #### 1 [id number], [id number], [id number] ####[facility] (DEFAULT)[address] [place] [address] 59591 Calcium [Mass/Vol] 8.7 mg/dL Low 8.9-10.3 [facility] Comment on above: Performed By: #### 1 [id number], [id number], [id number] ####[facility] (DEFAULT)[address] [place] [address] 42136 Chloride [Moles/Vol] 101 mmol/L Normal 101-111 [facility] Comment on above: Performed By: #### 1 [id number], [id number], [id number] ####[facility] (DEFAULT)[address] [place] [address] 19205 CO2 [Moles/Vol] 26 mmol/L Normal 21-32 [facility] Comment on above: Performed By: #### 1 [id number], [id number], [id number] ####[facility] (DEFAULT)[address] [place] [address] 80065 Creatinine [Mass/Vol] 0.89 mg/dL Low 0.90-1.30 [facility] Comment on above: Performed By: #### 1 [id number], [id number], [id number] ####[facility] (DEFAULT)[address] [place] [address] 14051 Glucose [Mass/Vol] 98.0 mg/dL Normal 74.0-118.0 [facility] Comment on above: Performed By: #### 1 [id number], [id number], [id number] ####[facility] (DEFAULT)[address] [place] [address] 53253 Osmolality 270 mOsm/L Invalid Interpretation Code [facility] Comment on above: Performed By: #### 1 [id number], [id number], [id number] ####[facility] (DEFAULT)[address] [place] [address] 63829 Potassium [Moles/Vol] 3.9 mmol/L Normal 3.6-5.1 [facility] Comment on above: Performed By: #### 1 [id number], [id number], [id number] ####[facility] (DEFAULT)[address] [place] [address] 23980 Sodium [Moles/Vol] 135.0 mmol/L Low 136.0-144.0 [facility] Comment on above: Performed By: #### 1 [id number], [id number], [id number] ####[facility] (DEFAULT)[address] [place] [address] 38655 Urea nitrogen [Mass/Vol] 14 mg/dL Normal 8-26 [facility] Comment on above: Performed By: #### 1 [id number], [id number], [id number] ####[facility] (DEFAULT)[address] [place] [address] 59631 Urea nitrogen/Creatinine [Mass ratio] 15.7 mg/mg Normal 4.6-16.2 [facility] Comment on above: Performed By: #### 1 [id number], [id number], [id number] ####[facility] (DEFAULT)[address] [place] [address] 39958 CBC w/ Auto Diffon Erythrocyte distribution width (RBC) [Ratio] 13.4 % Normal 11.5-15.0 [facility] Comment on above: Performed By: #### 1 [id number], [id number], [id number] ####[facility] (DEFAULT)[address] [place] [address] Hematocrit (Bld) [Volume fraction] 43.5 % Normal 34.8-51.9 [facility] Comment on above: Performed By: #### 1 [id number], [id number], [id number] ####[facility] (DEFAULT)[address] [place] [address] Hemoglobin (Bld) [Mass/Vol] 14.8 g/dL Normal 11.8-17.7 [facility] Comment on above: Performed By: #### 1 [id number], [id number], [id number] ####[facility] (DEFAULT)[address] [place] [address] Man Diff? Auto Invalid Interpretation Code [facility] Comment on above: Performed By: #### 1 [id number], [id number], [id number] ####[facility] (DEFAULT)[address] [place] [address] MCH (RBC) [Entitic mass] 33 pg Normal 24-34 [facility] Comment on above: Performed By: #### 1 [id number], [id number], [id number] ####[facility] (DEFAULT)[address] [place] [address] MCHC (RBC) [Mass/Vol] 34 g/dL Normal 26-37 [facility] Comment on above: Performed By: #### 1 [id number], [id number], [id number] ####[facility] (DEFAULT)[address] [place] [address] 49064 MCV (RBC) [Entitic vol] 96 fL Normal 81-100 [facility] Comment on above: Performed By: #### 1 [id number], [id number], [id number] ####[facility] (DEFAULT)[address] [place] [address] 87213 Platelet 228 x10 Normal 138-427 [facility] Comment on above: Performed By: #### 1 [id number], [id number], [id number] ####[facility] (DEFAULT)[address] [place] [address] 51665 Platelet mean volume (Bld) [Entitic vol] 7.9 fL Normal 6.3-10.2 [facility] Comment on above: Performed By: #### 1 [id number], [id number], [id number] ####[facility] (DEFAULT)[address] [place] [address] 21387 RBC 4.52 x10 Normal 3.70-5.30 [facility] Comment on above: Performed By: #### 1 [id number], [id number], [id number] ####[facility] (DEFAULT)[address] [place] [address] 17016 WBC 8.2 x10 Normal 3.5-10.5 [facility] Comment on above: Performed By: #### 1 [id number], [id number], [id number] ####[facility] (DEFAULT)[address] [place] [address] 43355 PSA SCREEN (MEDICARE)on TPSA 0.217 ng/mL Normal <4.000 [facility] Comment on above: Result Comment: PSA Test Method: ECLIA/Paramjit e 601 Performed By: #### P SA #### [facility] [address] [place], [place] [id number] CBC AUTO DIFFon 01-19-2021 BASO # 0.0 103/ul Normal 0.0-0.1 [facility] [place] [facility] Comment on above: Performed By: #### C BC #### [facility] [address] [place] [address] 45429 Belle Juarez Basophils/100 WBC (Bld) 0.3 % Normal 0.2-2.0 [facility] [place] [facility] Comment on above: Performed By: #### C BC #### [facility] [address] [place] [address] 10471 Belle Juarez EO # 0.1 103/ul Normal 0.0-0.7 [facility] [place] [facility] Comment on above: Performed By: #### C BC #### [facility] [address] [place], [place] [address] Belle Taverasen Eosinophils/100 WBC (Bld) 0.9 % Normal 0.9-7.0 [facility] [place] [facility] Comment on above: Performed By: #### C BC #### [facility] [address] [place] [address] Belleteo Juarez Erythrocyte distribution width (RBC) [Ratio] 13.2 % Normal 11.0-15.0 [facility] [place] [facility] Comment on above: Performed By: #### C BC #### [facility] [address] [place] [address] Belleteo Juarez Hematocrit (Bld) [Volume fraction] 40.5 % Critically low 42.0-54.0 [facility] [place] [facility] Comment on above: Performed By: #### C BC #### [facility] [address] [place] [address] [place] Ann Hemoglobin (Bld) [Mass/Vol] 13.5 g/dL Critically low 14.0-18.0 [facility] [place] [facility] Comment on above: Performed By: #### C BC #### [facility] [address] [place] [address] Belleteo Taverasen IG # 0.05 10e3/ul Critically high 0.00-0.03 [facility] Comment on above: Performed By: #### C BC #### [facility] [address] [place] [address] [place] IG % 0.5 % Normal 0.0-0.5 [facility] [place] [facility] Comment on above: Performed By: #### C BC #### [facility] [address] [place], [place] [address] [place] LYMPH # 2.0 103/ul Normal 1.2-3.8 [facility] [place] [facility] Comment on above: Performed By: #### C BC #### [facility] [address] [place] [address] Blele Ann Lymphocytes/100 WBC (Bld) 19.6 % Critically low 20.5-60.0 [facility] [place] [facility] Comment on above: Performed By: #### C BC #### [facility] [address] [place], [place] [id number] Belle Juarez MANUAL DIFF REQ NO Normal [facility] Comment on above: Performed By: #### C BC #### [facility] [address] [place], [place] [id number] Belleteo Juarez MCH (RBC) [Entitic mass] 31.9 pg Normal 25.9-34.0 [facility] [place] [facility] Comment on above: Performed By: #### C BC #### [facility] [address] [place], [place] [address] Belle Juarez MCHC (RBC) [Mass/Vol] 33.3 g/dL Normal 29.9-35.2 [facility] [place] [facility] Comment on above: Performed By: #### C BC #### [facility] [address] [place] [address] Belleteo Juarez MCV (RBC) [Entitic vol] 95.7 fL Critically high 80.0-94.0 [facility] [place] [facility] Comment on above: Performed By: #### C BC #### [facility] [address] [place], [place] [address] [place] MONO # 1.0 103/ul Critically high 0.3-0.8 [facility] Comment on above: Performed By: #### C BC #### [facility] [address] [place], [place] [address] [place] Monocytes/100 WBC (Bld) 10.1 % Normal 1.7-12.0 [facility] [place] [facility] Comment on above: Performed By: #### C BC #### [facility] [address] [place], [place] [address] [place] NEUT # 7.0 103/ul Critically high 1.4-6.5 [facility] Comment on above: Performed By: #### C BC #### [facility] [address] [place], [place] [address] [place] Neutrophils/100 WBC (Bld) 68.6 % Normal 43.0-75.0 [facility] Comment on above: Performed By: #### C BC #### [facility] [address] [place], [place] [address] Belleteo Juarez Platelet mean volume (Bld) [Entitic vol] 9.5 fL Normal 9.5-13.5 [facility] [place] [facility] Comment on above: Performed By: #### C BC #### [facility] [address] [place], [place] [address] [place] Ann PLT 163 103/ul Normal 150-450 [facility] Comment on above: Performed By: #### C BC #### [facility] [address] [place], [place] [address] Belleteo Taverasen RBC 4.23 106/ul Critically low 4.70-6.10 [facility] Comment on above: Performed By: #### C BC #### [facility] [address] [place], [place] [address] Belleteo Taverasen WBC 10.1 103/ul Normal 4.0-11.0 [facility] [place] [facility] Comment on above: Performed By: #### C BC #### [facility] [address] [place], [place] [address] Belle Taverasen LIPASEon 01-19-2021 Lipase [Catalytic activity/Vol] 548.0 U/L Critically high 23.0-300.0 [facility] [place] [facility] Comment on above: Performed By: #### D DIM #### [facility] [address] [place], [place] [address] Belle Juarez PROF 14(COMP METB)on 021 Albumin [Mass/Vol] 3.2 g/dL Critically low 3.5-5.0 [facility] Comment on above: Performed By: #### C SCARLET LIPA #### [facility] [address] [place] [address] Belle Juarez Albumin/Globulin [Mass ratio] 1.0 {ratio} Normal [facility] [place] [facility] Comment on above: Performed By: #### C SCARLET LIPA #### [facility] [address] [place] [address] 317[address] [place] ALP [Catalytic activity/Vol] 54 U/L Normal 38-126 [facility] Comment on above: Performed By: #### C MP, LIPA #### [facility] [address] [place], [place] [address] [place] ALT [Catalytic activity/Vol] 95 U/L Critically high 21-72 [facility] [place] [facility] Comment on above: Performed By: #### C MP, LIPA #### [facility] [address] [place], [place] [address] [place] Anion gap [Moles/Vol] 13.0 mmol/L Normal [facility] [place] [facility] Comment on above: Performed By: #### C MP, LIPA #### [facility] [address] [place] [id number] [place] AST [Catalytic activity/Vol] 47 U/L Normal 17-59 [facility] [place] [facility] Comment on above: Performed By: #### C MP, LIPA #### [facility] [address] [id number] [place] Bilirubin [Mass/Vol] 1.2 mg/dL Normal 0.2-1.3 [facility] [place] [facility] Comment on above: Performed By: #### C MP, LIPA #### [facility] [address] [place], [place] [address] [place] Calcium [Mass/Vol] 8.3 mg/dL Critically low 8.4-10.2 Th [facility] Comment on above: Performed By: #### C MP, LIPA #### [facility] [address] [place] [id number] [place] Chloride [Moles/Vol] 103 mmol/L Normal 98-107 [facility] Comment on above: Performed By: #### C MP, LIPA #### [facility] [address] [place], [place] [address] [place] CO2 [Moles/Vol] 27.2 mmol/L Normal 22.0-30.0 [facility] Comment on above: Performed By: #### C MP, LIPA #### [facility] [address] [place], [place] [address] [place] Creatinine [Mass/Vol] 0.86 mg/dL Normal 0.66-1.25 [facility] [place] [facility] Comment on above: Performed By: #### C MP, LIPA #### [facility] [address] [place], [place] [address] [place] EGFR-AF CUBAN >60 Normal >=60 [facility] Comment on above: Performed By: #### C MP, LIPA #### [facility] [address] [id number] [place] EGFR-NON AF CUBAN >60 Normal >=60 [facility] [place] [facility] Comment on above: Performed By: #### C MP, LIPA #### [facility] [address] [id number] [place] Globulin (S) [Mass/Vol] 3.3 g/dL Normal [facility] [place] [facility] Comment on above: Performed By: #### C MP, LIPA #### [facility] [address] [place] [address] [place] Glucose [Mass/Vol] 111 mg/dL Critically high 74-106 [facility] Comment on above: Performed By: #### C MP, LIPA #### [facility] [address] [id number] [place] Potassium [Moles/Vol] 4.2 mmol/L Normal 3.4-5.0 [facility] [place] [facility] Comment on above: Performed By: #### C MP, LIPA #### [facility] [address] [id number] [place] Protein [Mass/Vol] 6.5 g/dL Normal 6.1-8.[address] [facility] Comment on above: Performed By: #### C MP, LIPA #### [facility] [address] [id number] [place] Sodium [Moles/Vol] 139 mmol/L Normal 137-[address] [facility] Comment on above: Performed By: #### C MP, LIPA #### [facility] [address] [id number] [place] Urea nitrogen [Mass/Vol] 11.0 mg/dL Normal 9.0-20.0 [facility] [place] [facility] Comment on above: Performed By: #### C MELISSA NOVAK #### [facility] [address] [place], [place] [id number] [place]leteo Juarez Urea nitrogen/Creatinine [Mass ratio] 12.8 mg/mg Normal [facility] [place] [facility] Comment on above: Performed By: #### C MELISSA NOVAK #### [facility] [address] [place], [place] [id number] [place] AMYLASEon 01-18-2021 Amylase [Catalytic activity/Vol] 345 U/L Critically high 31-110 [facility] Comment on above: Result Comment: test repeated critical value verified Performed By: #### D DIM #### [facility] [address] [place] [address] [place] CBC AUTO DIFFon 01-18-2021 BASO # 0.1 103/ul Normal 0.0-0.1 [facility] [place] [facility] Comment on above: Performed By: #### C BC #### [facility] [address] [place] [address] [place] Basophils/100 WBC (Bld) 0.7 % Normal 0.2-2.0 [facility] [place] [facility] Comment on above: Performed By: #### C BC #### [facility] [address] [place] [address] Belleteo Taverasen EO # 0.2 103/ul Normal 0.0-0.7 [facility] [place] [facility] Comment on above: Performed By: #### C BC #### [facility] [address] [place] [address] Belle Juarez Eosinophils/100 WBC (Bld) 1.5 % Normal 0.9-7.0 [facility] Comment on above: Performed By: #### C BC #### [facility] [address] [place], [place] [id number] [place] Erythrocyte distribution width (RBC) [Ratio] 12.8 % Normal 11.0-15.0 [facility] [place] [facility] Comment on above: Performed By: #### C BC #### [facility] [address] [place] [address] [place] Hematocrit (Bld) [Volume fraction] 42.1 % Normal 42.0-54.0 [facility] [place] [facility] Comment on above: Performed By: #### C BC #### [facility] [address] [place], [place] [id number] [place] Hemoglobin (Bld) [Mass/Vol] 14.5 g/dL Normal 14.0-18.0 [facility] [place] [facility] Comment on above: Performed By: #### C BC #### [facility] [address] [place], [place] [id number] [place] IG # 0.04 10e3/ul Critically high 0.00-0.03 [facility] Comment on above: Performed By: #### C BC #### [facility] [address] [place] [address] [place] IG % 0.4 % Normal 0.0-0.5 [facility] [place] [facility] Comment on above: Performed By: #### C BC #### [facility] [address] [place] [address] [place] LYMPH # 2.4 103/ul Normal 1.2-3.8 [facility] [place] [facility] Comment on above: Performed By: #### C BC #### [facility] [address] [place] [address] Belle Juarez Lymphocytes/100 WBC (Bld) 24.6 % Normal 20.5-60.0 [facility] [place] [facility] Comment on above: Performed By: #### C BC #### [facility] [address] [place], [place] [id number] [place] Juarez MANUAL DIFF REQ NO Normal [facility] Comment on above: Performed By: #### C BC #### [facility] [address] [place] [address] Belleteo Juarez MCH (RBC) [Entitic mass] 32.6 pg Normal 25.9-34.0 [facility] [place] [facility] Comment on above: Performed By: #### C BC #### [facility] [address] [place], [place] [id number] Belleteo Juarez MCHC (RBC) [Mass/Vol] 34.4 g/dL Normal 29.9-35.2 [facility] [place] [facility] Comment on above: Performed By: #### C BC #### [facility] [address] [place], [place] [address] Belle Juarez MCV (RBC) [Entitic vol] 94.6 fL Critically high 80.0-94.0 [facility] [place] [facility] Comment on above: Performed By: #### C BC #### [facility] [address] [id number] Belleteo Juarez MONO # 0.9 103/ul Critically high 0.3-0.8 [facility] Comment on above: Performed By: #### C BC #### [facility] [address] [id number] [place] Monocytes/100 WBC (Bld) 9.7 % Normal 1.7-12.0 [facility] [place] [facility] Comment on above: Performed By: #### C BC #### [facility] [address] [place] [address] Belleteo Taverasen NEUT # 6.1 103/ul Normal 1.4-6.5 [facility] [place] [facility] Comment on above: Performed By: #### C BC #### [facility] [address] [id number] [place] Neutrophils/100 WBC (Bld) 63.1 % Normal 43.0-75.0 [facility] Comment on above: Performed By: #### C BC #### [facility] [address] [id number] Belleteo Juarez Platelet mean volume (Bld) [Entitic vol] 9.9 fL Normal 9.5-13.5 [facility] Comment on above: Performed By: #### C BC #### [facility] [address] [id number] [place] PLT 195 103/ul Normal 150-450 [facility] Comment on above: Performed By: #### C BC #### [facility] [address] [id number] [place] RBC 4.45 106/ul Critically low 4.70-6.10 [facility] Comment on above: Performed By: #### C BC #### [facility] [address] [place], [place] [address] Belle Juarez WBC 9.7 103/ul Normal 4.0-11.0 [facility] Comment on above: Performed By: #### C #### [facility] [address] [place], [place] [address] ABD/PELVIS WO CONon 01-18 [...] RICK CIFUENTES Date: 2021-01-18 06:44 Normal [facility] Covid-19 PCR (CVDTBH)on 12-26 SARS-CoV-2 (COVID-19) RNA GERA+probe Ql (Unsp spec) Not detected Normal NOT DETECTED [facility] Comment on above: Result Comment: This test is not yet approved or cleared by the [place] FDA. When there are no FDA-approved or cleared tests available, and other criteria are met, FDA can make tests available under an emergency access mechanism called an Emergency Use Authorization (EUA). The EUA for this test is supported by the [place] of Health and Human Service's (HHS's) declaration [...] SARS-CoV-2. Performed By: #### C VDTBH #### [facility] [address] [place] [address] Belle Juarez D-DIMERon 01-18-2021 D-DIMER 0.27 mg/L FEU Normal 0.19-0.50 [facility] Comment on above: Performed By: #### D DIM #### [facility] [address] [place] [address] Belle Juarez D-DIMER COMMENTS SEE BELOW Normal [facility] Comment on above: Result Comment: Incr eases [...] hospitalization. Performed By: #### D DIM #### [facility] [address] [place], [place] [id number] [place] Juarez LIPASEon 01-18-2021 Lipase [Catalytic activity/Vol] U/L Critically high 23.0-300.0 [facility] Comment on above: Result Comment: test repeated critical value verified Performed By: #### D DIM #### [facility] [address] [place], [place] [id number] Belle Juarez PROF 14(COMP METB)on 021 Albumin [Mass/Vol] 3.5 g/dL Normal 3.5-5.[address] [facility] Comment on above: Performed By: #### D DIM #### [facility] [address] [place], [place] [address] [place] Albumin/Globulin [Mass ratio] 0.8 {ratio} Normal [facility] [place] [facility] Comment on above: Performed By: #### D DIM #### [facility] [address] [place], [place] [address] [place] ALP [Catalytic activity/Vol] 62 U/L Normal 38-126 [facility] Comment on above: Performed By: #### D DIM #### [facility] [address] [id number] [place] ALT [Catalytic activity/Vol] 118 U/L Critically high 21-72 [facility] [place] [facility] Comment on above: Performed By: #### D DIM #### [facility] [address] [place], [place] [address] [place] Anion gap [Moles/Vol] 11.9 mmol/L Normal [facility] [place] [facility] Comment on above: Performed By: #### D DIM #### [facility] [address] [place], [place] [address] [place] AST [Catalytic activity/Vol] 65 U/L Critically high 17-59 [facility] [place] [facility] Comment on above: Performed By: #### D DIM #### [facility] [address] [place], [place] [address] [place] Bilirubin [Mass/Vol] 0.3 mg/dL Normal 0.2-1.3 [facility] Comment on above: Performed By: #### D DIM #### [facility] [address] [place], [place] [address] [place] Calcium [Mass/Vol] 8.9 mg/dL Normal 8.4-10.2 [facility] Comment on above: Performed By: #### D DIM #### [facility] [address] [place], [place] [address] [place] Chloride [Moles/Vol] 103 mmol/L Normal 98-107 [facility] Comment on above: Performed By: #### D DIM #### [facility] [address] [phone] [place] CO2 [Moles/Vol] 25.2 mmol/L Normal 22.0-30.0 [facility] Comment on above: Performed By: #### D DIM #### [facility] [address] [phone] [place] Creatinine [Mass/Vol] 0.89 mg/dL Normal 0.66-1.25 [facility] Comment on above: Performed By: #### D DIM #### [facility] [address] [id number] [place] EGFR-AF CUBAN >60 Normal >=60 [facility] Comment on above: Performed By: #### D DIM #### [facility] [address] [place] [address] [place] EGFR-NON AF CUBAN >60 Normal >=60 [facility] Comment on above: Performed By: #### D DIM #### [facility] [address] [address] [place] Globulin (S) [Mass/Vol] 4.3 g/dL Normal [facility] [place] [facility] Comment on above: Performed By: #### D DIM #### [facility] [address] [place], [place] [address] [place] Glucose [Mass/Vol] 123 mg/dL Critically high 74-106 T [facility] Comment on above: Performed By: #### D DIM #### [facility] [address] [place] [address] [place] Potassium [Moles/Vol] 4.1 mmol/L Normal 3.4-5.0 [facility] [place] [facility] Comment on above: Performed By: #### D DIM #### [facility] [address] [place], [place] [address] [place] Protein [Mass/Vol] 7.8 g/dL Normal 6.1-8.[address] [facility] Comment on above: Performed By: #### D DIM #### [facility] [address] [place], [place] [address] [place] Sodium [Moles/Vol] 136 mmol/L Critically low 137-145 Th [facility] Comment on above: Performed By: #### D DIM #### [facility] [address] [place], [place] [address] [place] Juarez Urea nitrogen [Mass/Vol] 17.0 mg/dL Normal 9.0-20.0 [facility] [place] [facility] Comment on above: Performed By: #### D DIM #### [facility] [address] [place], [place] [address] [place] Juarez Urea nitrogen/Creatinine [Mass ratio] 19.1 mg/mg Normal [facility] [place] [facility] Comment on above: Performed By: #### D DIM #### [facility] [address] [place], [place] [address] [place] Juarez RAPID COVID-19 ANTIGENon EUA Statement SEE BELOW Normal [facility] Comment on above: Result Comment: [...] sooner. Performed By: #### D DIM #### [facility] [address] [place] [address] [place] Juarez SARS-CoV-2 (COVID-19) RNA GERA+probe Ql (Unsp spec) Negative Normal NEGATIVE [facility] [place] [facility] Comment on above: Result Comment: Nega tive results are presumptive. They do not preclude infection and should not be used as the sole basis for treatment decisions. Additional confirmatory testing by a molecular method should be considered. Performed By: #### D DIM #### [facility] [address] [place], [place] [address] [place] Juarez TROPONIN, HIGH SENSITIVITYon 01-18-2021 HSTROP 7.5 pg/mL Normal 4.0-42.2 [facility] [place] [facility] Comment on above: Result Comment: CUT- OFF POINTS HAVE BEEN ESTABLISHED BASED ON THE FOURTH UNIVERSAL DEFINITIONS OF MYOCARDIAL INFARCTION. THE UPPER REFERENCE LIMIT (URL) OF TROPONIN, DEFINED THE 99TH PERCENTILE OF cTnI DISTRIBUTION IN A REFERENCE POPULATION, HAS BEEN CONFIRMED THE DECISION THRESHOLD FOR AR DIAGNOSIS. Performed By: #### D DIM #### [facility] [address] [place], [place] [address] Belle Juarez US SINGLE QUAD RT UPPERon [...] by: RICK CIFUENTES Date: 2021-01-18 08:31 Normal [facility] [place] [facility] XR CHEST 1 Von 01-18-2021 [...] by: RICK CIFUENTES Date: 2021-01-18 06:39 Normal [facility] [place] [facility] Vital Signs Date Time Vital Sign Value Performing Clinician Facility 08-11-2024 14:27-0500 Body height 195.58 cm [facility] 08-11-2024 14:27-0500 Body mass index (BMI) [Ratio] 32.2 kg/m2 [facility] 08-11-2024 14:27-0500 Body temperature 97.5 [degF] [facility] 08-11-2024 14:27-0500 Body weight 123.43 kg [facility] 08-11-2024 14:27-0500 Diastolic blood pressure 62 mm[Hg] [facility] 08-11-2024 14:27-0500 Heart rate 72 /min [facility] 08-11-2024 14:27-0500 SaO2% (BldA) [Mass fraction] 96 % [facility] 08-11-2024 14:27-0500 Systolic blood pressure 124 mm[Hg] [facility] 06-30-2024 08:32-0500 Body height 195.58 cm [facility] 06-30-2024 08:32-0500 Body mass index (BMI) [Ratio] 31.4 kg/m2 [facility] 06-30-2024 08:32-0500 Body weight 120.2 kg [facility] 06-30-2024 08:32-0500 Diastolic blood pressure 80 mm[Hg] [facility] 06-30-2024 08:32-0500 Heart rate 64 /min [facility] 06-30-2024 08:32-0500 SaO2% (BldA) [Mass fraction] 97 % [facility] 06-30-2024 08:32-0500 Systolic blood pressure 138 mm[Hg] [facility] 12-07-2023 13:12-0400 Body height 195.6 cm Karen Jones MD Work Phone: [facility] 12-07-2023 13:12-0400 Body mass index (BMI) [Ratio] 31.9 kg/m2 Karen Jones MD Work Phone: [facility] 12-07-2023 13:12-0400 Body weight 122.02 kg Karen Jones MD Work Phone: [facility] 12-07-2023 13:12-0400 Diastolic blood pressure 76 mm[Hg] Karen Jones MD Work Phone: [facility] 12-07-2023 13:12-0400 Heart rate 78 /min Karen Jones MD Work Phone: [facility] 12-07-2023 13:12-0400 Systolic blood pressure 126 mm[Hg] Karen Jones MD Work Phone: [facility] 06-29-2023 13:40-0500 Diastolic blood pressure 80 mm[Hg] Karen Jones MD Work Phone: [facility] 06-29-2023 13:40-0500 Systolic blood pressure 155 mm[Hg] Karen Jones MD Work Phone: [facility] 06-29-2023 13:31-0500 Body height 195.6 cm Karen Jones MD Work Phone: [facility] 06-29-2023 13:31-0500 Body mass index (BMI) [Ratio] 33.08 kg/m2 Karen Jones MD Work Phone: [facility] 06-29-2023 13:31-0500 Body weight 126.55 kg Karen Jones MD Work Phone: [facility] 06-29-2023 13:31-0500 Heart rate 87 /min Karen Jones MD Work Phone: [facility] 04-30-2023 15:30-0400 Body height 195.58 cm 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 Other [facility] Other 04-30-2023 15:30-0400 Body mass index (BMI) [Ratio] 32.13 kg/m2 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 Other [facility] 04-30-2023 15:30-0400 Body weight 122.93 kg Bushra Fierrokatlin Other [facility] Other 04-30-2023 15:30-0400 Diastolic blood pressure 84 mm[Hg] Bushra De La Torreacher Other [facility] Other 04-30-2023 15:30-0400 SaO2% (BldA) [Mass fraction] 94 % Bushra Wilacher Other [facility] Other 04-30-2023 15:30-0400 Systolic blood pressure 134 mm[Hg] Bushra Scottverónicaacher Other [facility] Other 04-08-2023 15:30-0400 Body height 195.58 cm Bushra Vadimr Other [facility] Other 04-08-2023 15:30-0400 Body mass index (BMI) [Ratio] 32.84 kg/m2 Bushra Scottverónicakyler Other [facility] Other 04-08-2023 15:30-0400 Body weight 125.65 kg Bushra Vadimr Other [facility] Other 04-08-2023 15:30-0400 Diastolic blood pressure 80 mm[Hg] Bushra Wilacher Other [facility] Other 04-08-2023 15:30-0400 SaO2% (BldA) [Mass fraction] 97 % Bushra Wilacher Other [facility] Other 04-08-2023 15:30-0400 Systolic blood pressure 144 mm[Hg] Bushra Francis Other [facility] Other 03-18-2023 08:30-0400 Body height 195.58 cm Bushra Fierrokatlin Other [facility] Other 03-18-2023 08:30-0400 Body mass index (BMI) [Ratio] 31.99 kg/m2 Bushra Francis Other [facility] Other 03-18-2023 08:30-0400 Body weight 122.38 kg Bushra Scottverónicakylekatlin Other [facility] Other 03-18-2023 08:30-0400 Diastolic blood pressure 96 mm[Hg] Bushra Francis Other [facility] Other 03-18-2023 08:30-0400 Respiratory rate 16 /min Bsuhra Scottclary Other [facility] Other 03-18-2023 08:30-0400 SaO2% (BldA) [Mass fraction] 96 % Bushra Francis Other [facility] Other 03-18-2023 08:30-0400 Systolic blood pressure 144 mm[Hg] Bushra Francis Other [facility] Other Encounters Encounter Date Encounter Type Care Provider Facility Start: 08-11-2024 End: 08-11-2024 ambulatory [facility] Work Phone: Start: 08-11-2024 End: 08-11-2024 Patient encounter [facility] Work [facility]: Start: 06-30-2024 Patient encounter status [facility] Start: 06-30-2024 End: 06-30-2024 Encounter for general adult medical examination without abnormal findings [facility] Start: 06-30-2024 End: 06-30-2024 [facility] Work Phone: Start: 06-28-2024 [facility]: Start: 12-07-2023 End: 12-07-2023 Office outpatient visit 25 minutes Karen Jones MD Work Phone: [facility] Comment on above: Primary hypertension ; Hypertriglyceridemia; Non-smoker; BMI 31.0-31.9,adult; Encounter to discuss test results; Elevated coronary artery calcium score; Medication course changed Start: 12-07-2023 End: 12-07-2023 ambulatory [facility] Start: 11-30-2023 End: 11-30-2023 ambulatory [facility] Work Phone: Start: 11-30-2023 End: 11-30-2023 Patient encounter procedure [facility] Work Phone: Start: 10-23-2023 Non-patient / Non-visit [facility] [employer] Work Phone: Start: 08-27-2023 End: 08-27-2023 ambulatory [facility] Start: 08-27-2023 End: 08-27-2023 Subsequent hospital visit by physician Kendy Sotomayor Admin Room 1 [facility] Comment on above: Elevated coronary ar isabella calcium score Start: 08-12-2023 End: 08-12-2023 ambulatory [facility] Start: 07-06-2023 End: 07-06-2023 ambulatory Rick Shen Facility:[facility] Start: 07-02-2023 End: 07-02-2023 ambulatory 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 Other [facility] Other Start: 07-02-2023 Telephone encounter Bushra mackay [employer] Start: 06-29-2023 End: 06-29-2023 Office outpatient new 30 minutes Karen Jones MD Work Phone: [facility] Comment on above: Primary hypertension ; Pre-operative cardiovascular examination; Left knee pain, unspecified chronicity; Hypertriglyceridemia; Primary osteoarthritis involving multiple joints; Other chronic pain; Nonspecific abnormal electrocardiogram (ECG) (EKG); Non-smoker Start: 06-29-2023 End: 06-29-2023 Patient encounter status Karen Jones MD Work Phone: [facility] Work Phone: Start: 06-23-2023 End: 06-24-2023 ambulatory 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 Facility:[facility] Start: 06-16-2023 End: 06-16-2023 ambulatory ANGELA IRELAND Not Available Start: 04-30-2023 End: 04-30-2023 ambulatory 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 Other [facility] Other Start: 04-30-2023 Office outpatient vi sit 15 minutes 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 [facility] Start: 04-08-2023 End: 04-08-2023 ambulatory 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 Other [facility] Other Start: 04-08-2023 Office outpatient vi sit 15 minutes 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 [facility] Start: 03-18-2023 End: 03-18-2023 ambulatory 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 Other [facility] Other Start: 03-18-2023 Office outpatient ne w 30 minutes 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 [facility] Start: 07-01-2021 End: 07-02-[address] VANESSA VALADEZ Facility: Start: 01-18-2021 End: 06-26-2021 Evaluation and management of inpatient DR VANESSA VALADEZ Facility:[facility] Start: 10-15-2020 End: 03-01-[address] NONE LISTED REQUEST Facility:[facility] Procedures Date Procedure Procedure Detail Performing Clinician Start: 12-07-2023 Comprehensive metabo lic 2000 panel - Serum or Plasma KAREN JONES Start: 12-07-2023 Lipid panel KAREN PAT Start: 08-27-2023 NUCLEAR STRESS TEST TAN JONES Start: 08-27-2023 Cv strs tst xers&/or rx cont ecg trcg only Karen Jones MD Work Phone: Start: 08-12-2023 CT CARDIAC SCORING W O IV CONTRAST KAREN JONES Start: 06-29-2023 Ecg routine ecg w/le ast 12 lds w/i&r Karen Jones MD Work Phone: Plan of Treatment Date Care Activity Detail Author Start: 07-11-2024 End: 07-11-2024 Patient encounter procedure 07/11/2024 9:00 AM EST Office Visit [facility] [address] [place] [address] Karen Jones MD [address] [place], [place] [id number] [facility] Start: 03-27-2024 Influenza vaccination Influenza Vaccine (Season Ended) [facility] Start: 03-08-2024 End: 12-06-2024 Comprehensive metabolic 2000 panel - Serum or Plasma Comprehensive Metabolic Panel Lab Routine Primary hypertension Elevated coronary artery calcium score Expected: 03/08/2024 (Approximate), Expires: 12/06/2024 [facility] Work Phone: Comment on above: Expected: 03/08/2024 (Approximate), Expi res: 12/06/2024 Start: 03-08-2024 End: 12-06-2024 Lipid 1996 panel - Serum or Plasma Lipid Panel Lab Routine Hypertriglyceridemia Expected: 03/08/2024 (Approximate), Expires: 12/06/2024 [facility] Service Area Work Phone: Comment on above: Expected: 03/08/2024 (Approximate), Expi res: 12/06/2024 Start: 11-23-2023 End: 11-23-2023 Patient encounter procedure 11/23/2023 9:00 AM EDT Office Visit [facility] [address] [place] [address] Karen Jones MD [address] [place], [place] [id number] [facility] Start: 06-29-2023 End: 06-29-2024 Alanine aminotransferase [Enzymatic activity/volume] in Serum or Plasma by With P-5'-P Alanine Aminotransferase Lab Routine Hypertriglyceridemia Nonspecific abnormal electrocardiogram (ECG) (EKG) Expected: 06/29/2023 (Approximate), Expires: 06/29/2024 [facility] Work Phone: Comment on above: Expected: 06/29/2023 (Approximate), Expi res: 06/29/2024 Start: 06-29-2023 End: 06-29-2024 Aspartate aminotransferase [Enzymatic activity/volume] in Serum or Plasma by With P-5'-P Aspartate Aminotransferase Lab Routine Hypertriglyceridemia Nonspecific abnormal electrocardiogram (ECG) (EKG) Expected: 06/29/2023 (Approximate), Expires: 06/29/2024 [facility] Work Phone: Comment on above: Expected: 06/29/2023 (Approximate), Expi res: 06/29/2024 Start: 06-29-2023 End: 06-29-2024 CT for calcium scoring WO contrast and CTA W contrast IV Heart and coronary arteries CT cardiac scoring wo IV contrast Imaging Routine Primary hypertension Nonspecific abnormal electrocardiogram (ECG) (EKG) Expected: 06/29/2023, Expires: 06/29/2024 [facility] Service Area Work Phone: Comment on above: Expected: 06/29/2023, Expires: Start: 06-29-2023 End: 06-29-2024 Lipid 1996 panel - Serum or Plasma Lipid Panel Lab Routine Hypertriglyceridemia Nonspecific abnormal electrocardiogram (ECG) (EKG) Expected: 06/29/2023 (Approximate), Expires: 06/29/2024 [facility] Work Phone: Comment on above: Expected: 06/29/2023 (Approximate), Expi res: 06/29/2024 Start: 03-27-2023 COVID-19 Vaccine ( season) COVID-19 Vaccine ( season) [facility] Start: 03-27-2023 Influenza vaccination Influenza Vaccine (#1) [facility] Start: 08-16-2021 COVID-19 Vaccine (4 - Pfizer series) COVID-19 Vaccine (4 - Pfizer series) [facility] Start: 2020 Zoster Vaccines (1 of 2) Zoster Vaccines (1 of 2) [facility] Start: 1992 DTaP/Tdap/Td Vaccines (1 - Tdap) DTaP/Tdap/Td Vaccines (1 - Tdap) [facility] Start: 1989 Hepatitis B Vaccines (1 of 3 - 19+ 3-dose series) Hepatitis B Vaccines (1 of 3 - 19+ 3-dose series) [facility] Start: 1988 Hepatitis C screening Hepatitis C Screening [facility] Start: 1971 MMR Vaccines (1 of 1 - Standard series) MMR Vaccines (1 of 1 - Standard series) [facility] Start: 1970 Hepatitis B Vaccines (1 of 3 - 3-dose series) Hepatitis B Vaccines (1 of 3 - 3-dose series) [facility] Start: 1970 HIV screening HIV Screening [facility] Start: 1970 Lipid panel Lipid Panel [facility] Start: 1970 Screening for malignant neoplasm of colon [facility] Start: 1970 Yearly Adult Physical Yearly Adult Physical [facility] Comprehensive metabo lic 2000 panel - Serum or Plasma [facility] Immunizations Immunization Date Immunization Notes Care Provider Fa cility 06-21-2021 Do not use COVID-19 Pfizer 2 dose 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 Other [facility] 11-06-2020 Do not use COVID-19 Pfizer 2 dose Bushra Francis Other [facility] 10-15-2020 Do not use COVID-19 Pfizer 2 dose Bushra Francis Other [facility] Payers Date Payer Category Payer Unknown [employer] [facility] [id number] 2021-Present [address] [place] [address] [id number] 1970 Unknown [id number] [id number] 1970 Unknown [id number] 2.16.840.1.629824.3.579.2.593 1970 Unknown [id number] 2.16.840.1.143094.3.579.2.1259 1970 Unknown [id number] 2.16.840.1.910674.3.579.2.718 1970 Unknown [id number] 2.16.840.1.245250.3.579.2.718 1970 Unknown [id number] 2.16.840.1.559469.3.579.2.1246 1970 Unknown [id number] 2.16.840.1.366592.3.579.2.1246 1970 Unknown [id number] 2.16.840.1.582318.3.579.2.1246 1970 Unknown [id number] 2.16.840.1.137911.3.579.2.1245 1970 Unknown [id number] 2.16.840.1.302174.3.579.2.1246 1970 Unknown [id number] 2.16.840.1.779701.3.579.2.1245 1970 Unknown [id number] 2.16.840.1.905909.3.579.2.1244 1959 Self-pay 1959 Unknown [id number] Unknown [id number] [id number] Social History Date Type Detail Facility Start: 06-29-2023 End: 11-30-2023 Sex Assigned At [facility] [employer] Other Start: 06-29-2023 Tobacco smoking status NHIS Never smoked tobacco [facility] Work Phone: Start: 06-29-2023 Tobacco use and exposure Smokeless tobacco non-user [facility] Work Phone: Start: 06-29-2023 End: 12-07-2023 Alcohol intake Current drinker of alcohol (finding) [facility] Work Phone: Start: 1970 Sex Assigned At Not on file [facility] Work Phone: Start: 06-19-2023 End: 12-07-2023 Exposure to SARS-CoV-2 (event) Not sure [facility] Start: 06-29-2023 End: 11-30-2023 History of Social function [facility] Work Phone: Start: 1970 Sex Assigned At Male F [facility] Tobacco smoking status NHIS Unknown if ever smoked [facility] Work Phone: Start: 08-11-2024 Sex Male (finding) [facility] Clinical Notes 07-01-2021 to 06-30-2024 Note Date & Type Note Facility 06-30-2024 Evaluation note Diagnosis Onset Date Resolution Primary hypertension acute Dece 2023 8:25am Screening for colon cancer acute June 30 8:25am Screening for prostate cancer acute June 30 8:25am Wellness examination acute Dece 2023 8:25am Obesity (BMI 30-39.9) acute Pascual uary 2024 2:25pm Primary hypertension acute Shubham perez 2024 2:25pm [facility] Work Phone: 1(615) 948-537205-13-2024 History of Present illness Narrative* Karen Jones MD - 12/07/2023 1:15 PM EDT Most recently seen prior to knee replacement surgery, for preoperative cardiac risk assessment. 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 Coronary calcium score July 2023-left main 0 LAD 1.80 left circumflex 69 RCA 386 total 1635 ascending thoracic aorta 3.9 cm Lexiscan Myoview August 2023-transient ischemic dilatation 0.98, LVEF 52%, normal perfusion. PER ORTHOPEDICS NOTE : 1. Primary osteoarthritis of left knee M17.12 L Inj/Asp: L knee 2. Internal derangement of left knee M23.92 3. Other tear of medial meniscus of left knee as current injury, initial encounter S83.242A Objective Wt Readings from Last 3 Encounters: 12/07/23 122 kg (269 lb) 11/30/23 123 kg (272 lb) 06/29/23 127 kg (279 lb) Vitals: 12/07/23 1312 BP: 126/76 BP Location: Right arm Patient Position: Sitting Pulse: 78 Weight: 122 kg (269 lb) Height: 1.956 m (6' 5 ) Physical Exam: GENERAL APPEARANCE: in no acute distress. CHEST: Symmetric and non-tender. INTEGUMENT: Skin warm and dry HEENT: No gross abnormalities identified.No pallor or scleral icterus. NECK: Supple, no JVD, no bruit. NEURO/PSHCY: Alert and oriented x3; appropriate behavior and responses and responses LUNGS: Clear to auscultation bilaterally; normal respiratory effort. HEART: Rate and rhythm regular with no evident murmur; no gallop appreciated. ABDOMEN: Soft, non tender. MUSCULOSKELETAL: No gross deformities. EXTREMITIES: Warm There is no edema noted. Meds: Current Outpatient Medications Medication Instructions aspirin 81 mg, oral, Daily losartan (COZAAR) 50 mg, oral, Daily pravastatin (PRAVACHOL) 40 mg, oral, Daily No Known Allergies LABS: Reviewed results of Lexiscan Myoview, reviewed lipid profile, total cholesterol 225, LDL 130s. Patient Active Problem List Diagnosis Date Noted BMI 31.0-31.9,adult 12/07/2023 Encounter to discuss test results 12/07/2023 Elevated coronary artery calcium score 12/07/2023 Medication course changed 12/07/2023 Hypertension 06/29/2023 Left knee pain 06/29/2023 Pre-operative cardiovascular examination 06/29/2023 Non-smoker 06/29/2023 Nonspecific abnormal electrocardiogram (ECG) (EKG) 06/29/2023 Hypertriglyceridemia 03/23/2023 Primary osteoarthritis involving multiple joints 03/23/2023 Other chronic pain 03/23/2023 Decreased testosterone level 03/23/2023 Hypopituitarism (Multi) 03/23/2023 Abnormal liver function tests 03/23/2023 Assessment: 1. Primary hypertension Follow Up In Cardiology losartan (Cozaar) 50 mg tablet aspirin 81 mg chewable tablet Comprehensive Metabolic Panel Comprehensive Metabolic Panel 2. Hypertriglyceridemia Lipid Panel pravastatin (Pravachol) 40 mg tablet Lipid Panel 3. Non-smoker 4. BMI 31.0-31.9,adult 5. Encounter to discuss test results 6. Elevated coronary artery calcium score aspirin 81 mg chewable tablet Comprehensive Metabolic Panel Comprehensive Metabolic Panel 7. Medication course changed Clinical decision making: Reviewed implications of Lexiscan Myoview, the dynamic nature of coronary artery disease, reviewed calcium score results and its implications, discussed the importance of ongoing risk factor modification and primary prevention. We will initiate enteric-coated aspirin 81 mg p.o. daily, pravastatin 40 mg p.o. daily, and recheck lipid profile and liver enzymes in 3 months. Patient understands that if new symptoms develop he should be reevaluated. Follow up : 6 months Provider Attestation - Scribe documentation All medical record entries made by the Scribe were at my direction and personally dictated by me. Wilda reviewed the chart and agree that the record accurately reflects my personal performance of the history, physical exam, discussion and plan. [facility] Work Phone: 1(189) 551-685105-13-2024 Instructions* Patient Instructions* Carmel Bray LPN - 12/07/2023 1:15 PM EDT Please bring all medicines, vitamins, and herbal supplements with you when you come to the office. Prescriptions will not be filled unless you are compliant with your follow up appointments or have a follow up appointment scheduled as per instruction of your physician. Refills should be requested at the time of your visit. documented in [facility] Work Phone: 1(940) 476-470212-12-2023 Note [id number]#1.00[facility]12-12-2023 [id number] 07-06-2023 [facility] SURGERY Clinical Discharge Summary PERSON INFORMATION Name ANGELA NANCE Age 53 Years 1970 Sex MALE Language Greenlandic PCP 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 CNP Marital Status Phone Med Service Ambulatory Surgery Acct# Arrival 07/06/2023 10:40:31 Visit Reason SURGERY - LEFT KNEE SCOPE Acuity LOS 014 07:35 Address: [address] [place] [address] Comment: PROVIDER INFORMATION VITALS INFORMATION Vital Sign [...] Follow up: With: Address: When: SHELBY NATHAN [address] [place] [address], [address] [place] [address] Business (1) 07/15/2023 9:15 AM DIAGNOSIS Tear of medial meniscus of left knee Comment: PHYS [facility]12-04-2023 History of Present illness Narrative* Karen Jones MD - 06/29/2023 1:15 PM EST Referred by Dr Reddy for preoperative cardiac risk assessment. 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 documented in [facility] Work Phone: 1([phone]) 709-483911-30-2023 NoteDr Ac reviews PAT information and testing results. Ok to proceed with procedure.[facility] [id number] Evaluation note* Encounter Date Diagnosis Assessment Notes Treatment Notes Treatment Clinical Notes Apr, Primary hypertension (ICD-10 - I10) [...] You have been given relevant education handouts. [facility] Other 09-13-2023 Evaluation note* Encounter Date Diagnosis [...] target. Follow-up in 4 weeks for effectiveness. [facility] Other 08-23-2023 Evaluation note* Encounter Date Diagnosis [...] screening done. PSA screening lab ordered today. [facility] Other 12-06-2021 NotePROCEDURE: XR SHOULDER RT 2V or > COMPARISON: None. HISTORY: Impingement syndrome of right shoulder region FINDINGS: BONES:No fracture, acute abnormality, or significant arthropathy. SOFT TISSUES:Negative. No visible soft tissue swelling. EFFUSION:None visible. OTHER: Negative. IMPRESSION: No acute abnormality Electronically authenticated by: RICK CIFUENTES Date: 2021-07-01 20:40[facility]12-06-2021 NotePROCEDURE: XR KNEE RT 4V [...] Electronically authenticated by: RICK CIFUENTES Date: 2021-07-01 20:39[facility] Diagnosis Primary hypertension Unspecified essential hypertension Pre-operative cardiovascular examination Left knee pain, unspecified chronicity Hypertriglyceridemia Pure hyperglyceridemia Primary osteoarthritis involving multiple joints Other chronic pain Nonspecific abnormal electrocardiogram (ECG) (EKG) Non-smoker documented in this encounter [facility] Work Phone: Evaluation noteNo InformationNortGeisinger Medical Center [facility] Other Evaluation note* Diagnosis Elevated coronary artery calcium score documented in this encounter [facility] Work Phone: Evaluation noteNo assessment information [facility] Work Phone: Evaluation note* Diagnosis Primary hypertension Unspecified essential hypertension Hypertriglyceridemia Pure hyperglyceridemia Non-smoker BMI 31.0-31.9,adult Encounter to discuss test results Other specified counseling Elevated coronary artery calcium score Medication course changed documented in this encounter [facility] Work Phone: Hisigjc general Narrative - Reported* Type Description Date Surgical History Removal of Appendix Hospitalization History see surgical [facility] Other History general Narrative - Reported* Type Description Date Medical History Hypertension Surgical History Removal of Appendix Hospitalization History see surgical [facility] Other Reason for referral (narrative)* Consultation (Routine) - Authorized Specialty Diagnoses / Procedures Referred By Contac t Referred To Contact Cardiology Diagnoses Primary hypertension Procedures Follow Up In Cardiology Karen Jones MD [address] [facility] [address] [place] [address] Karen Jones MD [address] [facility] [address] [place] [address] Referral ID Status Reason Start Date Expiration Date V isits Requested Visits Authorized [id number] Authorized 06/29/2023 06/28/2024 1 1 * Imaging (Routine) - Pending Review Specialty Diagnoses / Procedures Referred By Contac t Referred To Contact Radiology Diagnoses Primary hypertension Nonspecific abnormal electrocardiogram (ECG) (EKG) Procedures CT cardiac scoring wo IV contrast Karen Jones MD [address] [place] [address] Referral ID Status Reason Start Date Expiration Date Visits Requested Visits Authorized [id number] Pending Review Perform Procedure 06/29/2023 06/28/2024 1 1 * Cardiovascular (Routine) - Pending Review Specialty Diagnoses / Procedures Referred By Contac t Referred To Contact Diagnoses Pre-operative cardiovascular examination Nonspecific abnormal electrocardiogram (ECG) (EKG) Procedures ECG 12 Lead Karen Jones MD [address] [facility] [address] [place] [address] Referral ID Status Reason Start Date Expiration Date V isits Requested Visits Authorized [id number] Pending Review 06/29/2023 06/28/2024 1 1 [facility] Work Phone: Reason for referral (narrative)* Consultation (Routine) - Authorized Specialty Diagnoses / Procedures Referred By Contac t Referred To Contact Cardiology Diagnoses Primary hypertension Procedures Follow Up In Cardiology Karen Jones MD [address] [facility] [address] [place] [address] Karen Jones MD [address] [facility] [address] [place] [address] Referral ID Status Reason Start Date Expiration Date V isits Requested Visits Authorized [id number] Authorized 12/07/2023 12/06/2024 1 1 [facility] Work Phone: Summary Purpose Family History Relationship Condition Age at Onset Recorded Date/T ivon father Heart disease Unknown Unknown Malignant neoplasm Unknown History of malignant neoplasm of prostate Unknown Not Specified Family history of colon cancer Unknown Relationship Condition Age at Onset Recorded Date/T ivon father Heart disease Unknown Unknown Malignant neoplasm Unknown History of malignant neoplasm of prostate Unknown mother Family history of colon cancer Unknown Advance Directives Advance Directive Response Recorded Date/ Time Advance Directives No November 30, 2023 12:05pm Advance Directive Response Recorded Date/ Time Advance Directives No November 30, 2023 11:05am Reason for Referral Reason *FU 03/26 evaluate Diagnosis 1 Other chronic pain ( G89.29) Diagnosis 2 Pain in right knee ( M25.561) Diagnosis 3 Pain in left knee (M 25.562) Referral Organization [facility] [place] Referring Provider First Name Bushra Referring Provider Last Name Francis Referring Provider Specialty Nurse Pract itioner Referred Organization [facility] Referred Provider Angela Ireland Referred Address ,[place], [place],[address] Referred Provider Specialty Orthopedic S urgery Referral Priority Routine General Notes Shirley Cole 11:46:31 AM >received today, attachments made, notes locked, referral faxed to both pan Clinical Notes F: [id number] Specialty Diagnoses / Procedures Referred By Sally rick Referred To Contact Radiology Diagnoses Elevated coronary artery calcium score Procedures Nuclear Stress Test CHG MYOCARDIAL SPECT MULTIPLE STUDIES CHG MYOCARDIAL SPECT SINGLE STUDY AT REST OR STRESS Karen Jones MD [address] [place] [address] [address] [place] [address] Referral ID Status Reason Start Date Expiration Date V isits Requested Visits Authorized [id number] Authorized 08/17/2023 08/16/2024 5 5 Chief Complaint and Reason for Visit Chief Complaint allergy shot Chief Complaint Admit Date CC Adult Risk Stratification June 9:05am Wellness June 30, 2024 8 :25am talk about medications August 11 2:25pm Reason for Visit Admit Date Primary hypertension June 30, 2024 8:25am Screening for colon cancer June 30, 2024 8:25am Screening for prostate cancer June 302023 8:25am Wellness examination June 30, 2024 8:25am Obesity (BMI 30-39.9) August 11, 2024 2:25pm Primary hypertension August 11, 2024 2:25pm Additional Source Comments (unrecognized sect ion and content) No Status Records FoundNo Status Records FoundNo Status Records FoundNo Status Records FoundNo Status Records FoundNo Status Records Found INFORMATION SOURCE (unrecogn ized section and content) DATE CREATED AUTHOR 07/03/2021 [facility] dical Specialist DATE CREATED AUTHOR AUTHOR'S ORGANIZ ATION 07/07/2021 [facility] DATE CREATED AUTHOR AUTHOR'S ORGANIZ ATION 06/18/2023 [facility] dical Specialists EPIC DATE CREATED AUTHOR AUTHOR'S ORGANIZ ATION 07/09/2023 [facility] DATE CREATED AUTHOR AUTHOR'S ORGANIZ ATION 04/30/2024 [facility] DATE CREATED AUTHOR AUTHOR'S ORGANIZ ATION 07/26/2024 [facility] REASON FOR VISIT (unrecogniz ed section and content) Reason Comments Establish Care Pre-op Clearance Referral america mojica ddleston knee scope Abnormal ECG Specialty Diagnoses / Procedures Referred By Contac t Referred To Contact Diagnoses Pre-operative cardiovascular examination Nonspecific abnormal electrocardiogram (ECG) (EKG) Procedures ECG 12 Lead Karen Jones MD [address] [facility] [address] [place] [address] Referral ID Status Reason Start Date Expiration Date V isits Requested Visits Authorized [id number] Pending Review 06/29/2023 06/28/2024 1 1 Specialty Diagnoses / Procedures Referred By Contac t Referred To Contact Radiology Diagnoses Elevated coronary artery calcium score Procedures Nuclear Stress Test CHG MYOCARDIAL SPECT MULTIPLE STUDIES CHG MYOCARDIAL SPECT SINGLE STUDY AT REST OR STRESS Karen Jones MD [address] [place] [address] Referral ID Status Reason Start Date Expiration Date V isits Requested Visits Authorized [id number] Authorized 08/17/2023 08/16/2024 5 5 Reason Comments Follow-up 6 months Care Teams (unrecognized sec tion and content) [employer]p Corporate [employer] Relationship Specialty Start Date End Date 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, 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 [address] [facility] [place] [address] PCP - General Family Medicine 06/29/23 [employer]p Corporate Development Relationship Specialty Start Date End Date 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 APRN-TAIL WORKER PCP - General Family Medicine 06/29/23 [employer] Corporate [employer] Relationship Specialty Start Date End Date 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 APRN-TAIL WORKER PCP - General Family Medicine 06/29/23 [employer]p Corporate [employer] Relationship Specialty Start Date End Date 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 APRN-TAIL WORKER PCP - General Family Medicine 06/29/23 Team Status: Active Member Role Status Dates 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 APRN [employer] WORK[employer]-C Primary Care Provider Active Team Status: Active Member Role Status Dates 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 APRN [employer] WORKER-C Primary Care Provider, Attending Provider Active Start: October 23, 2023 Team Status: Inactive Member Role Status Dates 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 APRN [employer] WORKER-C Primary Care Provider, Attending Provider Active Start: November 30, 2023 End: November 30, 2023 [employer]p Corporate Development Relationship Specialty Start Date End Date 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 APRN-TAIL WORKER [address] [place] [address] [place] [address] PCP - General Family Medicine 12/07/23 Team Status: Active Member Role Status Dates 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 APRN [employer] WORKER-C Primary Care Provider, Attending Provider Active Start: June 28, 2024 Team Status: Inactive Member Role Status Dates 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 APRN [employer] WORKER-C Primary Care Provider, Attending Provider Active Start: June 30, 2024 End: June 30, 2024 Team Status: Inactive Member Role Status Dates 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 APRN [employer] WORKER-C Primary Care Provider, Attending Provider Active Start: August 11, 2024 End: August 11, 2024 Goals (unrecognized section and content) Goals may be documented in a n alternate section FOR RECORDS PERTAINING TO PATIENTS WHO ARE [...] BE BASED ON THE PRIMARY CLINICAL RECORDS. [facility]. provides no warranty or guarantee of the accuracy or completeness of information in this document.
[2024-08-12 06:43] LABS: Basophils Absolute Auto 0.1 10^3/uL (0.0-0.1); Basophils Percent Auto 0.8 % (0.2-2.0); Eosinophils Absolute Auto 0.2 10^3/uL (0.0-0.7); Eosinophils Percent Auto 1.9 % (0.9-7.0); Hematocrit 43.8 % (42.0-54.0); Hemoglobin 14.8 g/dL (14.0-18.0); Immature Granulocytes Abs Auto 0.03 10^3/uL (0.00-0.03); Immature Granulocytes Pct Auto 0.4 % (0.0-0.5); Lymphocytes Absolute Auto 2.6 10^3/uL (1.2-3.8); Lymphocytes Percent Auto 33.5 % (20.5-60.0); Mean Corpuscular HGB Conc 33.8 g/dL (29.9-35.2); Mean Corpuscular Hemoglobin 32.7 pg (25.9-34.0); Mean Corpuscular Volume 96.7 fL (80.0-94.0); Mean Platelet Volume 9.1 fL (9.5-13.5); Monocytes Absolute Auto 0.8 10^3/uL (0.3-0.8); Monocytes Percent Auto 10.5 % (1.7-12.0); Neutrophils Absolute Auto 4.2 10^3/uL (1.4-6.5); Neutrophils Percent Auto 52.9 % (43.0-75.0); Platelet Count 233 10^3/uL (150-450); Red Blood Count 4.53 10^6/uL (4.70-6.10); Red Cell Distribution Width 12.7 % (11.0-15.0); White Blood Count 7.8 10^3/uL (4.0-11.0)
[2024-08-12 07:02] LABS: Alanine Aminotransferase 43 U/L (16-63); Albumin Level 3.9 g/dL (3.4-5.0); Alkaline Phosphatase 72 U/L (46-116); Anion Gap 14.6; Aspartate Amino Transferase 25 U/L (15-37); BUN Creatinine Ratio 10.5; Bilirubin Total 0.5 mg/dL (0.2-1.0); Calcium 8.9 mg/dL (8.5-10.1); Chloride 103 mmol/L (98-107); Chol HDL Ratio 5.1; Cholesterol 240 mg/dL (<=200); Estimated GFR (African America >60 (>=60 mL/min/1.73m^2); Estimated GFR (Non-African Ame >60 (>=60 mL/min/1.73m^2); Globulin 3.9 g/dL; Glucose 116 mg/dL (74-106); HDL Cholesterol 47 mg/dL (40-60); Potassium 4.6 mmol/L (3.5-5.1); Sodium 140 mmol/L (136-145); Total Protein 7.8 g/dL (6.4-8.2); Triglycerides 156 mg/dL (<=150); VLDL CHOLESTEROL 31.2 mg/dL
[2024-08-12 07:32] LABS: Prostate Specific Antigen Scrn 0.23 ng/mL (<=4.00)
== END 2024-08-12 06:33 | disposition home or self-care (01) ==
LOC: LAB 06:32
PROVIDERS: PCP Nurse Practitioner Family; Visit Provider Nurse Practitioner Family
DX: I10 Essential (primary) hypertension (principal); Z12.5 Encounter for screening for malignant neoplasm of prostate
CPT/HCPCS: 36415; 80053; 80061; 85025; G0103